=== PATIENT | female | born 1955 | race Caucasian/White ===

== ENCOUNTER → 2020-02-16 09:09 | Outpatient (BNVA) | payer MEDICAID, SELFPAY | PROVIDERS: Family Provider Family Medicine; PCP Family Medicine; Referring Provider Registered Nurse; Visit Provider Orthopaedic Surgery | DX: M25.511 Pain in right shoulder (principal) | CPT/HCPCS: 73030 ==

== ENCOUNTER 2020-03-07 13:28 | Outpatient (CLI) | payer MEDICAID, SELFPAY ==
--- NOTE | 2020-03-07 13:45 | MR_ITS ---
WS: [id number] MRI RIGHT SHOULDER HISTORY: M25.519 Pain in unspecified shoulder COMPARISON: Shoulder radiograph 02/16/2020 TECHNIQUE: Multiplanar sequences of the shoulder joint are submitted. Moderate AC joint arthritis. Hypertrophic bone formation soft tissue formation. There is fluid along the AC ligament. Osteophytes encroach inferiorly upon the supraspinatus muscle and tendon with displa cement. There is a small amount of fluid in the subacromial and subdeltoid bursa. 5 mm osteophyte fro m the distal undersurface of the acromion encroaching upon the supraspinatus tendon over the humeral head. No os acromion. Biceps tendon appears to be in good position. Full-thickness distal moderate-sized supraspinatus tendon tear at the insertion site extends over a w idth of 6 millimeters. There is additional mild tendinopathy in the distal tendon and narrowing of th e acromial humeral space. No additional rotator cuff tears are identified. No muscle atrophy or edema . Significant degenerative changes over the superior lateral humeral head. There is edema within the gr eater tuberosity and multiple small osseous densities and osteophytes and loss of cartilage. Some of these changes may be related to the recent trauma and represent a microfractures. Marrow edema in the humeral head may be secondary to a healing fracture. No labral abnormality. MR/MR shoulder RT wo con* [id number] IMPRESSION: 1. Moderate-sized insertion site tear supraspinatus tendon. 2. Advanced degenerative changes over the humeral head. Loss of cartilage with marrow edema and osteophytes. Suspect there may be superimposed acute edema fr om the recent trauma. 3. Moderate AC joint hypertrophy with encroachment upon the supraspinatus.
== END 2020-03-07 13:29 | disposition home or self-care (01) ==
LOC: RADSHAW 13:31
PROVIDERS: PCP Registered Nurse; Visit Provider Orthopaedic Surgery
DX: M25.511 Pain in right shoulder (principal)
CPT/HCPCS: 73221

== ENCOUNTER → 2020-04-01 11:19 | Outpatient (BNVA) | payer MEDICAID, SELFPAY | PROVIDERS: PCP Registered Nurse; Visit Provider Orthopaedic Surgery | DX: Z01.812 Encounter for preprocedural laboratory examination (principal); Z20.828 Contact with and (suspected) exposure to other viral communicable diseases | CPT/HCPCS: 87635 ==

== ENCOUNTER 2020-04-07 05:28 | Day surgery (SDC) | payer MEDICAID, SELFPAY ==
[2020-04-06 17:32] VITALS: BMI 21.6
[2020-04-07] VITALS (17 sets, daily range): BP systolic 120–168; BP diastolic 65–98; PULSE 64–76; RESP 17–24; TEMP 35.9–36.4; O2SAT 94–100
[2020-04-07] MEDS: sodium chloride 0.9% 1,000 ML 30 ML IV (06:11)
[2020-04-07] MEDS: midazolam 1 mg/mL INJ 5 ML 5 MG IVP (06:45)
[2020-04-07] MEDS: fentaNYL 50 mcg/mL INJ 2mL 100 MCG IVP (06:47)
--- NOTE | 2020-04-07 06:48 | ANES.PREANE2 ---
Pre-Anesthetic Assessment Pre-Anesthetic Assessment: Height/Weight: Height 1.65 m Weight 58.967 kg Temp Pulse Resp BP Pulse Ox 97.5 F L 65 18 168/96 100 04/07/20 05:57 04/07/20 05:57 04/07/20 05:57 04/07/20 05:57 04/07/20 05:57 Preop Diagnosis: Right rotator cuff tear, osteoarthritis acromioclavicular joint Proposed Procedure: Operation Date: 04/07/20 07:00 Proposed Procedures p Right Shoulder Arthroscopy 89365 88562 S46.0111 M19.011(Right) - Manuel Goff MD s Rotator Cuff Repair(Right) - MD destiny Johnson Distal Clavicle Resection(Right) - Manuel Goff MD Was Beta Grace taken within 24 hours: N/A Last intake: Intake Last Liquid Date 04/06/20 Last Liquid Time 23:55 Last Solid Date 04/06/20 Last Solid Time 23:55 Social: Social History: Tobacco and No alcohol Exam: Pre-Anes Outpt Exam: alert, oriented x 3, clear to auscultation bilaterally and regular rate & rhythm Airway: Submandibular: WNL Cervical ROM: WNL MP: 1 Dentition: False Pulmonary: Pulmonary: COPD and Cough CV/HEM: CV/HEM: None reported : : None reported Hepatic: Hepatic: None reported GI: GI: None reported Metabolic: Metabolic: Thyroid Musc/skel: Musc/skel: None reported Neuropsych: Neuropsych: Depression Anesthetic Plan: ASA status: 3 Anesthesia: General and Regional (specify below) Other: Pt consented for right interscalene nerve block Meds/Allergies Current Medications: Current Medications Generic Name Dose Route Start Last Admin Trade Name Freq PRN Reason Stop Dose Admin Sodium Chloride 1,000 mls @ 30 ml s/hr 04/07/20 05:45 04/07/20 06:11 Sodium Chloride 0.9% IV 04/08/20 05:44 30 mls/hr .Q24H MACARENA Administration PFSH Anesthesia PFSH: Social History (Updated 03/14/20 @ 10:30 by Gasper Sierra LPN) Smoking and tobacco status: current every day smoker cigarettes [ Other cigarette details: 5 per day ] Quit status (tobacco): considering quitting Alcohol intake: never Data Anesthesia Cardiac Studies: No Data to Display
--- NOTE | 2020-04-07 06:51 | ANES.PROC ---
Anesthesia Procedures Procedure/Date: 04/07/20 Nerve Block ^: Nerve Block 1: Main Anesthesia: general anesthesia Time Out Performed: Yes Consent: requested by attending/covering physician, risks and benefits reviewed and patient agrees to proceed Nerve block location: interscalene (Right) Anesthetic Used: ropivicaine 0.5% Amount of anesthesia used (mL): 30 Interscalene/Femoral BLK: 2 stimuplex 22 g needle used for position and inplane approach Injection: neg aspiration of heme Patient Tolerated Procedure: well and no complications Complications: none
--- NOTE | 2020-04-07 06:56 | W.PM.OPSUD ---
Surgery/Procedure H&P Update DATE OF PROCEDURE: April 07, 2020 DATE H&P PERFORMED: 03/14/20 PREOP DIAGNOSIS: Right rotator cuff tear, osteoarthritis acromioclavicular joint PLANNED PROCEDURE: Operation Date: 04/07/20 07:00 Proposed Procedures p Right Shoulder Arthroscopy 87219 06328 S46.0111 M19.011(Right) - Manuel Goff MD s Rotator Cuff Repair(Right) - MD destiny Johnson Distal Clavicle Resection(Right) - Manuel Goff MD
--- NOTE | 2020-04-07 08:47 | P.OP_ITS ---
Operative Report Date of procedure: April 07, 2020 Pre-op Diagnosis: Right rotator cuff tear, osteoarthritis acromioclavicular joint, impingemen Post-op diagnosis: same Post-op Findings: Same Procedure Done: Arthroscopic right rotator cuff repair, subacromial decompression, distal clavicle excision Implants: Simms [employer] Nephew Helicoil 5.5 mm suture anchor Surgeon: Manuel Goff Anesthesia: General and Nerve Block (Interscalene block) Estimated blood loss (mL): 10 Complications: None Findings: The patient had a chronic tear of the right rotator cuff in the leading edge of the supraspinatus approximately 1 cm from anterior to posterior with a centimeter of tendinous retraction. She had a gentle anterior curvature to her acromion and enlargement degenerative changes of the acromioclavicular joint. Her biceps tendon was absent Condition: stable Disposition: PACU Procedure: The patient was taken to the operating room after interscalene block was provided by anesthesia. She is prepped and draped in the lateral position with the right arm in 10 pounds of traction. She was given 2 g of Ancef. The shoulder was entered through a posterior portal 2 cm inferior and medial to the posterior corner of the acromion. Diagnostic portion of the glenohumeral arthroscopy was performed. No significant chondromalacia of the humeral head or glenoid were identified. The biceps tendon was absent. The small full- thickness tear identified. The scope was then moved to the subacromial space and lateral and anterior portal were opened up with a scalpel. Initial attention was paid to the undersurface of the acromion. The Simms [employer] Nephew Werewolf probe was used to remove soft tissues from the leading edge of acromion revealing a anterior curvature and small spurs. 5 5 acromionizer was introduced and approximately 4 mm of anterior and inferior acromion removed. The Werewolf probe was then used to visualize the distal clavicle. The acromionizer was introduced in the anterior portal and approximately 8 mm of the distal clavicle fix excised. Attention was then focused on the rotator cuff. The tear seem to be a small U- shaped tear of reasonable tendon and bone quality. A 4.5 mm incisor shaver was used to debride the footprint of the supraspinatus on the greater tuberosity. Through a lateral stab wound a 5.5 mm helical anchor was placed. A first pass suture passer was used to shuttle 1 limb of ultra tape through the posterior lateral rotator cuff and a second limb through the anterior lateral rotator cuff. The ultra braid suture was passed in a central more medial position approximately 8 mm from the tendon edge. Initially the ultra tape was secured drawing the rotator cuff to bone followed by the Ultrabraid further reinforcing repair. The repair was probed and found to be stable. Arthroscopy equipment was removed. Portals were closed with 3-0 Prolene. Sterile dressings were applied. The patient was placed in a sling, extubated, and taken recovery room in stable condition.
[2020-04-07] MEDS: ipratropium-albuterol 3 mL Neb INHALATION (09:23)
--- NOTE | 2020-04-07 09:31 | P.PCN_ITS ---
PACU note PACU note: VSS, Good respiratory effort, report to CORPORATE COMPLIANCE DIRECTOR Post-Anesthesia Exam: awake
--- NOTE | 2020-04-07 09:31 | PM.PACU ---
PACU note PACU note: VSS, Good respiratory effort, report to CASHIER RECEPTIONIST Post-Anesthesia Exam: awake
--- NOTE | 2020-04-07 10:03 | SUR.PHASEI ---
0853 PT TO PACU AWAKE ALERT TALKAITVE COUGHING NON PRODUCTIVE ON 8LMASK PT HOB UP TO 40 DEGREES, PT COLD AT 97 WARM BLANKETS X 4 TO PT. BILAT SCDS ON 0945 PT VERY ALERT TALKATIVE TAKING ICE CHIP PT STILL HAS EXP RHONCHI TO ALL LOBES BUT HAD GOOD AIR MOVEMENT NOTED PT UNABLE TO COUGH UP SECRETION PT TO OPS ON 3LCN DR GALLO AT BEDSIDE PT ENCOURAGED TO DRINK LOTS OF FLUIDS AND WILL BE WATCHED IN OPS ON NC FOR NOW PT COMPLAINS OF PAIN TO RT SHOULDER FACE SCALE 2 PT OK WITH TAKING PO PAIN MED IN OPS.
--- NOTE | 2020-04-07 11:21 | SUR.PHASEII ---
patient states that she lives at home by herself. she says she has a friend named isra that will be checking on her and helping her at home today. pt discharged to ready transport for ride home awake and alert on room air.
--- NOTE | 2020-04-07 16:25 | ANE.PACU2 ---
Inpatient post-anesthesia follow up: Airway intact: Yes Vital signs: Temperature 96.7 F Pulse Rate 66 Respiratory Rate 20 Blood Pressure 142/89 Pulse Oximetry 94 Oxygen Delivery Me thod Room Air Oxygen Flow Rate 1 Fraction of Inspir ed Oxygen Hydration adequate: Yes Nausea and vomiting: No Pain level: 2 Mental status: Baseline
== END 2020-04-07 11:21 | disposition home or self-care (01) ==
PROVIDERS: PCP Registered Nurse; Visit Provider Orthopaedic Surgery
PROC: (CPT 29805; principal; 2020-04-07 07:00)
PROC: (CPT 29824; 2020-04-07 07:00)
PROC: (CPT 23120; 2020-04-07 07:00)
DX: M75.101 Unspecified rotator cuff tear or rupture of right shoulder, not specified as traumatic (principal); M19.011 Primary osteoarthritis, right shoulder; M25.811 Other specified joint disorders, right shoulder; J44.9 Chronic obstructive pulmonary disease, unspecified; F32.9 Major depressive disorder, single episode, unspecified; F17.210 Nicotine dependence, cigarettes, uncomplicated
CPT/HCPCS: 29824; 29826; 29827; 12345; 96374; 96375; C1713; J0690; J1100; J2250; J2370; J2405; J2704; J2795; J3010; J3490; J7030; J7611

== ENCOUNTER 2020-05-31 12:32 | Outpatient (CLI) | payer MEDICAID, SELFPAY ==
--- NOTE | 2020-05-31 13:45 | MR_ITS ---
WS: [id number] MRI CERVICAL SPINE NONCONTRAST TECHNIQUE: Sagittal T1, T2 and STIR imaging. Axial T2, gradient, and fiesta imaging. CLINICAL INFORMATION: M54.2 - Cervicalgia COMPARISON: None. FINDINGS: Straightening of the normal cervical lordosis. Slight anterolisthesis C4 on C5. No High-grade central canal stenosis. Cord signal is normal. C2-C3: Normal. C3-C4: Minimal disc bulging. Mild facet arthropathy. Mild left and no significant right foraminal jeromy rowing. Spinal canal is patent. C4-C5: Slight anterolisthesis C4 on C5. Disc osteophyte complex with endplate ridging. Mild left grea ter than right bony foraminal narrowing. Mild facet arthropathy. Mild central canal stenosis. C5-C6: Disc osteophyte complex with endplate ridging. Mild to moderate left greater than right bony f oraminal narrowing. C6-C7: Slight anterolisthesis. Mild left and no significant right foraminal narrowing. Spinal canal i s patent. Mild facet arthropathy. C7-T1: No significant disc bulging. Spinal canal and foramen are patent. Visualized brain stem structures: Normal. Prevertebral soft tissues: Normal. MR/MR cervical spin wo con* [id number] IMPRESSION: 1. Straightening of the normal cervical lordosis. Slight anterolisthesis C4 on C5 and C6 on C7. 2. Disc osteophyte complex C4-C5 with mild central canal stenosis. 3. Mild to moderate bony foraminal narrowing worse at left C4-C5 and left C5-C 6
== END 2020-05-31 12:33 | disposition home or self-care (01) ==
LOC: RADSHAW 12:33
PROVIDERS: PCP Registered Nurse; Visit Provider Orthopaedic Surgery
DX: M25.78 Osteophyte, vertebrae (principal); M48.02 Spinal stenosis, cervical region
CPT/HCPCS: 72141

== ENCOUNTER → 2020-06-17 11:13 | Outpatient (BNVA) | payer MEDICAID, SELFPAY | PROVIDERS: PCP Registered Nurse; Visit Provider Orthopaedic Surgery | DX: M54.2 Cervicalgia (principal) | CPT/HCPCS: 72050 ==

== ENCOUNTER → 2020-07-20 09:27 | Outpatient (BNVA) | payer MEDICAID, SELFPAY | PROVIDERS: PCP Registered Nurse; Visit Provider Orthopaedic Surgery | DX: S43.401A Unspecified sprain of right shoulder joint, initial encounter (principal); X58.XXXA Exposure to other specified factors, initial encounter | CPT/HCPCS: 73030 ==

== ENCOUNTER → 2020-08-04 09:55 | Outpatient (BNVA) | payer MEDICAID, SELFPAY | PROVIDERS: PCP Registered Nurse; Visit Provider Psychiatry & Neurology Neurology | DX: M47.22 Other spondylosis with radiculopathy, cervical region (principal); F17.210 Nicotine dependence, cigarettes, uncomplicated | CPT/HCPCS: 95886; 95908 ==

== ENCOUNTER → 2020-10-05 10:21 | Outpatient (BNVA) | payer MEDICAID, SELFPAY | PROVIDERS: PCP Registered Nurse; Visit Provider Orthopaedic Surgery | DX: Z01.818 Encounter for other preprocedural examination (principal); Z11.52 Encounter for screening for COVID-19; Z20.822 Contact with and (suspected) exposure to COVID-19 | CPT/HCPCS: 87635 ==

== ENCOUNTER 2020-10-12 05:55 | Day surgery (SDC) | payer MEDICAID, SELFPAY ==
[2020-10-05 12:08] VITALS: BMI 21.1
--- NOTE | 2020-10-05 12:20 | SUR.PREOP ---
Addendum entered by Sharon Hartman 10/05/20 12:23: physical therapy here and pt brought back to pre-op room one and fitted for pilot station J brace Original Note: per anesthesia protocol pt needs cbc but pt refuses due to worship practices and doesn't want to wait to see physical therapy to be fitted for a brace
--- NOTE | 2020-10-05 12:26 | ANES.PREANE2 ---
Pre-Anesthetic Assessment Pre-Anesthetic Assessment: Height/Weight: Height 1.65 m Weight 57.606 kg Preop Diagnosis: cervicalspondylosis with radiculopathy Proposed Procedure: Operation Date: 10/12/20 09:00 Proposed Procedures p Anterior Cervical Discectomy & Fusion 88326, 62709, 73851, 83648,42778, 40729 m47.22(Not Applicable) - Fabio Aguero, DO Was Beta Grace taken within 24 hours: N/A Was Clonidine taken within 24 hours: N/A Social: Social History: Tobacco and No alcohol Exam: Pre-Anes Outpt Exam: alert, oriented x 3 and regular rate & rhythm Additional Exam Findings (including area of procedure): rhonchi Airway: Submandibular: WNL Cervical ROM: WNL (good ROM with minimal neck pain) MP: 2 Dentition: False Pulmonary: Pulmonary: COPD Metabolic: Metabolic: Thyroid Neuropsych: Neuropsych: Depression Anesthetic Plan: ASA status: 3 Anesthesia: General Risk of > 500 ml blood loss (7ml/kg in children): No PFSH Anesthesia PFSH: Social History Smoking and tobacco status: current every day smoker cigarettes [ Other cigarette details: 5 per day ] Quit status (tobacco): considering quitting Alcohol intake: never Data Anesthesia Cardiac Studies: No Data to Display
[2020-10-12] VITALS (10 sets, daily range): BP systolic 117–141; BP diastolic 73–96; PULSE 56–65; RESP 16–21; TEMP 36.3–36.6; O2SAT 94–100
--- NOTE | 2020-10-12 | SCC_ITS ---
Post-op Findings: 1. Anterior diskectomy C4/5 2. Anterior discectomy C5/6 3. Insertion of cage C4/5 4. Insertion of Cage C5/6 5. Instrumentation with anterior plate from C4-C6 6. Use of allograft 22.1 seconds of fluoroscopic guidance, for a cumulative dose of 0.95 mGy, was provided to Dr. Aguero by the radiology department. C-arm images of the cervical spine were saved for the patient's permanent record. ALOK
--- NOTE | 2020-10-12 | XR_ITS ---
WS: [id number] Cervical spine, C-arm fluoroscopy views, 10/12/2020 Clinical Data: acdf Comparison: Cervical spine, 06/17/2020. Findings: An anterior cervical disc fusion of C4-C6 is seen. There is an artificial disc at C4-C5 and C5-C6. XR/XR cervical spine 3V* [id number] Impression: Anterior cervical disc fusion of C4-C6.
[2020-10-12] MEDS: sodium chloride 0.9% 1,000 ML 30 ML IV (06:23)
--- NOTE | 2020-10-12 06:34 | P.ANESUD_ITS ---
Pre-Anesthetic Update Pre-Anesthetic Assessment: Date of Surgery/Procedure: 10/12/20 Preop Maria Teresa gnosis: cervicalspondylosis with radiculopathy Proposed Procedure: Operation Date: 10/12/20 07:00 Proposed Procedures p Anterior Cervical Discectomy & Fusion 11177, 09398, 17240, 27282,04050, 28656 m47.22(Not Applicable) - Fabio Aguero, DO Any changes to Pre-Anesthetic Assessment?: No Last Intake: Intake Last Liquid Date 10/11/20 Last Liquid Time 21:00 Last Solid Date 10/11/20 Last Solid Time 21:00 Vitals: Temperature 98 F 10/12/20 06:14 Temperature Source Temporal Artery S can 10/12/20 06:14 Pulse Rate 65 10/12/20 06:14 Respiratory Rate 18 10/12/20 06:14 Blood Pressure 138/96 10/12/20 06:14 Blood Pressure Deena n 110 10/12/20 06:14 Pulse Oximetry 100 10/12/20 06:14 Oxygen Delivery Me thod 10/12/20 06:14 Exam: Pre-Anes Outpt Exam: alert, oriented x 3, clear to auscultation b ilaterally and regular rate & rhythm Additional Exam Findings (including area of procedure): L wheze Other Pertinent Information: Other Pertinent Information: Took her inhaler this morning Cardiac Studies: No Data to Display
--- NOTE | 2020-10-12 06:55 | W.PM.OPSUD ---
Surgery/Procedure H&P Update DATE OF PROCEDURE: October 12, 2020 DATE H&P PERFORMED: 10/12/20 PREOP DIAGNOSIS: cervicalspondylosis with radiculopathy PLANNED PROCEDURE: Operation Date: 10/12/20 07:00 Proposed Procedures p Anterior Cervical Discectomy & Fusion 15134, 61981, 60788, 87196,94771, 07314 m47.22(Not Applicable) - Fabio Aguero, DO
--- NOTE | 2020-10-12 06:56 | PM.HP ---
Providers/Chief Complaint Primary Care Provider: YOLIS Weinberg Chief Complaint: acdf 10376, 48060, 57199, [id number], 87735 History of Present Illness Lucy Dotson is a 65 year old female Patient has chronic C5-C6 radiculopathy on her EMG. MRI shows significant stenosis at C4-5 C5-6 which correlates with her findings. And her physical exam correlates with these findings as well. Patient has failed conservative therapy and at this point would like proceed with a C4-5 C5-6 ACDF. Review of Systems Narrative: General ROS: negative for weight changes, fever ENT ROS: negative for nasal congestion, drainage or bleeding, sore throat, dysphagia or ear pain Eyes: PERRL Hematological and Lymphatic ROS: negative for swollen glands or abnormal bleeding Endocrine ROS: negative for polyuria/polydpsia or new changes in weight Respiratory ROS: negative for cough, shortness of breath, or wheezing Cardiovascular ROS: negative for chest pain or dyspnea on exertion Gastrointestinal ROS: negative for reflux, abdominal pain, change in bowel habits, or black or bloody stools Musculoskeletal ROS: negative for back pain, neck pain, or joint pain or swelling except for current problem Neurological ROS: negative for TIA or stoke symptoms Skin: no rashes Medications/Allergies Home Medications Medication Instructions Recorded Confirmed Last Taken Type fluoxetine 40 mg capsule 40 mg PO DAILY 02/16/20 10/12/20 10/11/20 History levothyroxine 88 mcg tablet 88 mcg PO DAILY 02/16/20 10/12/20 10/11/20 History albuterol sulfate [ProAir HFA] 2 puff INHALATION 6XD PRN 04/06/20 10/12/20 10/12/20 History pregabalin 100 mg capsule 100 mg PO BID 08/04/20 10/12/20 10/11/20 History ibuprofen 400 mg PO TID PRN 10/05/20 10/12/20 10/11/20 History Allergies Allergy/AdvReac Type Severity Reaction Status Date / Time No Known Allergies Allergy Verified 10/05/20 12:03 PFSH Acute PFSH: Social History Smoking and tobacco status: current every day smoker cigarettes [ Other cigarette details: 5 per day ] Quit status (tobacco): considering quitting Alcohol intake: never Vitals/I&O/Wt Last Vital Signs Temp 98 F 10/12/20 06:14 Pulse 65 10/12/20 06:14 Resp 18 10/12/20 06:14 BP 138/96 10/12/20 06:14 Pulse Ox 100 10/12/20 06:14 Physical Exam Narrative: EXAM NARRATIVE: CONSTITUTIONAL: The patient is a normal appearing [] in no apparent distress. GENERAL: Patient in no acute distress. CARDIAC: Regular rate and rhythm. CHEST: Normal inspiratory effort, normal respiratory rate. ABDOMEN: Soft and nontender. SKIN: Clear, warm and intact. NEURO?PSYCH: The patient is alert and oriented to person, place and time. Sensorv /SILT Motor StrengthShoulder abduction C5 5/5Wrist extension C6 5/5Elbow extension C7 5/5Hand [employer] Plant [employer] Operator C8 5/5Finger abduction T15/5 Radial/ Ulnar/ Median n intact LowerSensory (SILT)Motor StrengthHin flexion L2/3Ant/inner thigh 5/5Hip adduction L2/3 5/5Knee extension L4 Lat thigh, 5/5Toe dorsiflexion L5 5/5Ankle dorsiflexion L5/ E83Ppbnqyr flexion S1 5/5 DTRBleeps 2+Triceps 2+Brachioradialis 2+Patellar 2+Achilles 2+ MUSCULOSKELETAL: [] UPPEREXTREMITIES: The patient had full active ROM in fingers, wrist, elbow, and shoulder. The patient demonstrated ability to fully flex/extend/abduct/adduct fingers, make ok sign, cross 2nd/3rd digits, extend 1st digit fully.. Radial pulse 2+, CR<2 seconds. LOWER EXTREMITIES: Pt has full, active ROM of toes, ankle, knee, and hip. Dorsalis pedis/posterior tibialis pulses 2+, CR<2 seconds. SPINE: Skin warm, dry, intact. A&P Assessment and plan (1) Cervical spondylosis with radiculopathy: C4/5 and C5/6 ACDF Status: Acute Attestations Medical Necessity Statement*: failed conservative tx Coding Level of Care Code Acute Chromosomal Disorders Counselor for g Fwd Diagnoses Cervical spondylosis with radiculopathy M47.22
[2020-10-12] MEDS: fentaNYL 50 mcg/mL INJ 2mL IVP (09:15)
--- NOTE | 2020-10-12 09:21 | PM.OP ---
Operative Report Date of procedure: October 12, 2020 Pre-op Diagnosis: cervicalspondylosis with radiculopathy Post-op diagnosis: same Post-op Findings: 1. Anterior diskectomy C4/5 2. Anterior discectomy C5/6 3. Insertion of cage C4/5 4. Insertion of Cage C5/6 5. Instrumentation with anterior plate from C4-C6 6. Use of allograft Surgeon: Fabio Aguero Anesthesia: General Estimated blood loss (mL): 5 Condition: stable Disposition: PACU Procedure: 1. Anterior diskectomy C4/5 2. Anterior discectomy C5/6 3. Insertion of cage C4/5 4. Insertion of Cage C5/6 5. Instrumentation with anterior plate from C4-C6 6. Use of allograft The patient was taken to the operating room, where he underwent general endotracheal anesthesia without complications. He was then positioned supine on the operating table, and all areas of impingement were well padded. The arms were carefully padded and tucked at his sides. A roll was placed between the shoulder blades.. An x-ray was done to determine the appropriate level for the skin incision. The entire neck was then sterilely prepped and draped in the usual fashion. Neuromonitoring was attached prior to prepping. A transverse skin incision was made and carried down to the platysma muscle. This was then split in line with its fibers. Blunt dissection was carried down medial to the carotid sheath and lateral to the trachea and esophagus until the anterior cervical spine was visualized. A needle was placed into a disc and an x-ray was done to determine its location. The longus colli muscles were then elevated bilaterally with the electrocautery unit. Self-retaining retractors were placed deep to the longus colli muscle. Attention was brought to the C4/5 level that was confirmed on x-ray. A caspar pin was placed into the C4 vertebrae and the C5 vertebrae. The disk space was then distracted. The microscope was then brought in. A radical anterior discectomies were performed at C4/5. This included complete removal of the anterior annulus, nucleus, and posterior annulus. The posterior longitudinal ligament was removed as were the posterior osteophytes. Foraminotomies were then accomplished bilaterally. This was done using a high speed courtney, kerrison rongeurs and curretes Once all of this was accomplished, the curved currette was used to check for any residual compression. The central canal was wide open as were the foramen. A high-speed bur was used to remove the cartilaginous endplates above and below the interspace. Bleeding cancellous bone was exposed. The disc space were measured and appropriate size cage were placed sterilely onto the field. Allograft graft was packed into the cages. The cage was then placed and there was good juxtaposition against the bleeding decorticated surfaces and good distraction of each interspace. Attention was brought to the next interspace. The [place] pins were removed. Bone wax was used to prevent any bleeding from occurring at the pin sites. Attention was brought to the C5/6 level that was confirmed on x-ray. A caspar pin was placed into the C5 vertebrae and the C6 vertebrae. The disk space was then distracted. The microscope was then brought in. A radical anterior discectomies were performed at C5/6. This included complete removal of the anterior annulus, nucleus, and posterior annulus. The posterior longitudinal ligament was removed as were the posterior osteophytes. Foraminotomies were then accomplished bilaterally. This was done using a high speed courtney, kerrison rongeurs and curretes Once all of this was accomplished, the curved currette was used to check for any residual compression. The central canal was wide open as were the foramen. A high-speed bur was used to remove the cartilaginous endplates above and below the interspace. Bleeding cancellous bone was exposed. The disc space were measured and appropriate size cage were placed sterilely onto the field. Allograft graft was packed into the cages. The cage was then placed and there was good juxtaposition against the bleeding decorticated surfaces and good distraction of each interspace. Attention was brought to the next interspace. The [place] pins were removed. Bone wax was used to prevent any bleeding from occurring at the pin sites. The appropriate size anterior cervical locking plate was chosen and bent into gentle lordosis. Two screws were then placed into each of the vertebral bodies at C4, C5 and C6. There was excellent purchase. A final x-ray was done confirming good position of the hardware and Cages. The locking screws were then applied, also with excellent purchase. Following a final copious irrigation, there was good hemostasis and no dural leaks. The carotid pulse was strong. The wounds were then closed in layers using 2-0 Vicryl suture for the platysma muscle, 2-0 Vicryl suture for the subcutaneous tissue, and 4-0 monocryl suture in a subcuticular skin closure. Glue was placed followed by application of a sterile dressing. The drain was hooked to bulb suction. A soft collar was applied. The patient was then carefully returned to the supine position on his hospital bed where he was reversed and extubated and taken to the recovery room having tolerated the procedure well.
--- NOTE | 2020-10-12 09:39 | SUR.PHASEI ---
PT AWAKE ALERT TALKATIVE WITH OPS NURSE, PT TAKING SIPS OF COKE IN OPS. MOVES ALL EXTREMITIES TO COMMAND VSS.PT ON 3LNC.
[2020-10-12] MEDS: HYDROcodone-acetaminophen 5-325 mg Tablet 1 TAB PO ×2 (09:50→10:47)
--- NOTE | 2020-10-12 15:43 | ANE.PACU2 ---
Inpatient post-anesthesia follow up: Airway intact: Yes Vital signs: Temperature 97.9 F Pulse Rate 58 Respiratory Rate 16 Blood Pressure 141/88 Pulse Oximetry 99 Oxygen Delivery Me thod Room Air Oxygen Flow Rate 2.0 Fraction of Inspir ed Oxygen Hydration adequate: Yes Nausea and vomiting: No Pain level: 3 Mental status: Baseline
== END 2020-10-12 11:05 | disposition home or self-care (01) ==
PROVIDERS: PCP Registered Nurse; Visit Provider Orthopaedic Surgery
PROC: 0RB30ZZ Excision of Cervical Vertebral Disc, Open Approach (ICD-10-PCS; CPT 22551; principal; 2020-10-12 07:00)
DX: M47.22 Other spondylosis with radiculopathy, cervical region (principal); F17.210 Nicotine dependence, cigarettes, uncomplicated; J44.9 Chronic obstructive pulmonary disease, unspecified; F32.9 Major depressive disorder, single episode, unspecified
CPT/HCPCS: 20930; 22551; 22552; 22845; 22853 ×2; 72040; 76000; 96365; C1713; C9359; J0330; J0690; J1100; J2370; J2405; J2704; J3010; J7030

== ENCOUNTER → 2020-12-15 13:36 | Outpatient (BNVA) | payer MEDICAID, SELFPAY | PROVIDERS: PCP Registered Nurse; Visit Provider Orthopaedic Surgery | DX: Z48.89 Encounter for other specified surgical aftercare (principal); M54.2 Cervicalgia | CPT/HCPCS: 72040 ==

== ENCOUNTER → 2021-01-12 08:47 | Outpatient (BNVA) | payer MEDICAID, SELFPAY | PROVIDERS: PCP Registered Nurse; Visit Provider Orthopaedic Surgery | DX: Z48.89 Encounter for other specified surgical aftercare (principal); M47.22 Other spondylosis with radiculopathy, cervical region | CPT/HCPCS: 72040 ==

== ENCOUNTER → 2021-03-02 11:16 | Outpatient (BNVA) | payer MEDICAID, SELFPAY | PROVIDERS: PCP Family Medicine; Visit Provider Orthopaedic Surgery | DX: Z48.89 Encounter for other specified surgical aftercare (principal); M54.2 Cervicalgia | CPT/HCPCS: 72040 ==

== ENCOUNTER 2021-05-09 12:07 | Inpatient (IN) | payer MEDICAID, SELFPAY ==
[2021-05-09 12:08] VITALS: BP 127/56; PULSE 51; RESP 22; TEMP 36.2; O2SAT 97; BMI 18.3
--- NOTE | 2021-05-09 12:11 | XACV_ITS ---
Ht: 165 cm Wt: 54 kg BSA: 1.58 m2 Gender: Female : 1955 Exam Priority: Routine Procedure(s): Procedure Description: Diagnostic procedure Anna ROBERTO; Diagnostic Cath Status: Emergency Diagnostic Findings * Left Main has no disease. * Distal Left Anterior Descending: obstructive 70% stenosis, KAYLYNN: 3 flow. * Mid Right Coronary Artery: moderate 50% stenosis, KAYLYNN: 3 flow. * Distal Right Coronary Artery: total occlusion, KAYLYNN: 0 flow. * Mid Circumflex to Distal Circumflex: obstructive 70% stenosis, KAYLYNN: 3 flow. * Coronary angiography shows right dominance. PCI Status: Emergency PCI Indication: STEMI - Immediate PCI for STEMI Interventional Findings * Mid Right Coronary Artery: 50% stenosis treated with a AB MINI TREK 2.00X15 RX BALLOON. 0% residual stenosis, KAYLYNN: 3 flow. * Distal Right Coronary Artery: 100% stenosis treated with a AB MINI TREK 2.00X15 RX BALLOON, MDT R NYDIA 3.0X34 FRANKIE, and MDT CLOVIS EUPHORA RX [id number] BALLOON. 0% residual stenosis, KAYLYNN: 3 flow. Conclusions 1. There is total occlusion coronary artery disease with three vessel disease. 2. Mid Right Coronary Artery was treated with a Balloon. 3. Distal Right Coronary Artery was treated with a Balloon, Drug Eluting Stent, and Balloon. Recommendations * 1-Return to inpatient for close monitoring and routine cath care 2-Risk factor modification for secondary prevention 3-Statin with LDL goal <70mg/dl, aspirin 81 mg life long 4-Patient was preloaded with 60mg of Effient, continue Effient 10mg p.o. daily for at least one year. We will assess at the end of one year again to continue it further or not 5-Continue optimal medical management, due to patient was uncooperative therefore we were not able to assess circumflex and LAD lesion with FFR which appeared to be significant, since we fix the culprit RCA and because of the fact patient keep on moving we decided to bring patient back after 2 to 3 weeks for stage FFR guided PCI of LAD and circumflex. 6-Follow up with Dr. Castillo for 2 weeks. Interventional RX Recommendation: PCI w/o planned CABG Diagnostic RX Recommendation: PCI w/o planned CABG Pressures Phase:Rest AO : 149 / 94 ( 118 ) @ 10:28:00 AM 113 / 82 ( 90 ) @ 10:51:00 AM Clinical Evaluation EBL: 5mL-10mL Procedural Details Procedure Consent Obtained. Procedure started. Pre-Procedure Time Out. Identified patient by full name and date of as verbalized by the patient/guarantor. Does the consent match the physician's order: N/A Emergent. Accurate & Complete Informed Consent: N/A Emergent. Inpatient/Outpatient History & Physical on Chart: N/A Emergent. If H&P is completed, is and addenduem needed: N/A Emergent; If yes, is the addendum complete: N/A Emergent. Visualize and Verify Site with Patient/Guarantor: N/A. Relevant Radiology Images available: N/A Emergent. Pre-op teaching completed and patient verbalized understanding. The risks, benefits, and alternatives of sedation and/or procedure were discussed by physician. The patient agrees to continue. Correct patient, site and procedure confirmed by cath team. [facility] Clinical Fraility Score: 3: Managing Well. Sealing Machine Operator Indications: ACS <= 24 hours. Chest Pain Symptom Assessment: Typical Angina Symptoms. Cardiovascular Instability: Yes, if yes, Persistant Ischemic Symptoms. PERRLA. Strong, equal hand integration manager bilaterally. Lungs clear x 5 lobes. IV Site on Arrival: 20 gauge in the left anticubital. IV Fluids: 0.9% NaCl at KVO. 600 mL infused prior to laboratory administrative director. Oxygen started at 4liters/min via nasal canula. right radial was prepped with chloroprep then draped in the usual sterile fashion. right groin was prepped with chloroprep then draped in the usual sterile fashion. Baseline sample Acquired. HR: 52 BPM. Equipment: 6F - Radial. Physician scrubbed in. Immediate Pre-Procedure Time Out. Correct Patient: Yes; Correct Procedure: Yes; Correct Site: Yes; Correct Patient Position: Yes; Correct Supplies: Yes; Dried Flammable Prep: Yes; Blood Products Available: N/A;. Lidocaine 1% infiltrated to the right radial. AP pads applied to pt. Arterial access obtained. 6 sudanese JR 4 SH guide catheter was inserted over the wire. Hand injection performed through sheath. Guide catheter out. Unable to advance Guide catheter due to difficult anatomy. Slight perforation noted. Pressure dressing applied to right forearm. Physician moving to femoral approach. Lidocaine 1% infiltrated to the right groin. Arterial access obtained with micropuncture set. 6 sudanese JR 4 SH guide catheter was inserted over the wire. Runthrough guidewire was advanced through the guide catheter to lesion in the mid RCA. Inflation number : 1 A AB MINI TREK 2.00X15 RX BALLOON was prepped and advanced across the Mid RCA , then inflated to 15 JESS for 0:17 seconds. Inflation number: 1 The AB MINI TREK 2.00X15 RX BALLOON was reinflated across the Dist RCA, to 15 JESS for 0:09 seconds. Balloon out. Inflation Number : 2 A MDT R NYDIA 3.0X34 FRANKIE -Lot Number# [id number] date 06/18/2022 was prepped and advanced across the Dist RCA. The stent was deployed at 14 JESS for 0:32 seconds. Stent balloon out over wire. Results checked. Wire and balloon out to reshape the wire. Runthrough guidewire was advanced through the guide catheter to lesion in the distal RCA. [place] guidewire was advanced through the guide catheter to lesion in the distal RCA. Inventory is [employer] [place] XT .014 190cm Str. Guidewire. Inflation number : 3 A MDT NC EUPHORA RX [id number] BALLOON was prepped and advanced across the Dist RCA , then inflated to 18 JESS for 0:18 seconds. Inflation number: 4 The MDT NC EUPHORA RX [id number] BALLOON was reinflated across the Dist RCA, to 18 JESS for 0:16 seconds. Runthrough wire out. Inflation number: 5 The MDT NC EUPHORA RX [id number] BALLOON was reinflated across the Dist RCA, to 16 JESS for 0:13 seconds. Balloon out. Wire out. Results checked. ACT drawn. Results 225 seconds. Therapeutic limits - pre-heparin administration 90-150 seconds and monitoring heparin during a vascular procedure >250 seconds. Guide catheter out. A 5 sudanese JL4 catheter in over wire. Multiple views taken of left coronary artery. Catheter out. A Right femoral angiogram was performed to determine safe placement of closure device. Right arm angiogram performed. A [facility]) was successful obtaining hemostatsis at the Right Femoral artery insertion site. Lidocaine 1% infiltrated to the right groin. A TR Band was successful obtaining hemostatsis at the Right Radial artery insertion site. TR band placed. Hemostasis obtained. Perclose placed without complications. No signs or symptoms of hematoma noted. Sterile dressing applied per usual sterile fashion. Post Procedure: Pulses reassessed and unchanged. PERRLA. Strong, equal hand integration manager bilaterally. No VTE prophylaxis required. Medication's Wasted: Lidocaine 1% = 15 mL. Medication's Wasted: Nitro = 50 mg. Medication's Wasted: Heparin = 2000 units. Total IV fluids: [address] Castillo expressing hematoma from right radial access. Contrast type used: Omnipaque 300 mgI/mL, 500 mL bottle. Post-op diagnosis: stemi. PCI Indication: STEMI. Complications: none. TR band applied to right forearm. Estimated blood loss: 5mL-10mL. Responsiveness - Normal response to verbal stimuli; alert and oriented, PERRLA. Airway - Unaffected, no intervention required; spontaneous ventilation. Circulation: W/N/L, pulses unchanged. Nausea/Vomiting: No. Procedure completed. Patient transferred by bed to ICU. Access Site Site: Right Radial artery Sheath Size: 6 Fr Hemostasis Method: TR Band Hemostasis Success: Successful Site: Right Femoral artery Sheath Size: 6 Fr Hemostasis Method: Perclose ([place]) Hemostasis Success: Successful Procedure Medications Start: 12:17 PM Stop: 12:17 PM Medication: Aspirin Amount: 325 mg Route: P.O. Start: 12:17 PM Stop: 12:17 PM Medication: Heparin Amount: 4000 units Route: I.V. Start: 12:20 PM Stop: 12:20 PM Medication: Effient Amount: 60 mg Route: P.O. Start: 12:18 PM Stop: 12:18 PM Medication: Versed Amount: 1 mg Route: I.V. Start: 12:18 PM Stop: 12:18 PM Medication: Fentanyl Amount: 50 mcg Route: I.V. Start: 12:21 PM Stop: 12:21 PM Medication: Versed Amount: 1 mg Route: I.V. Start: 12:25 PM Stop: 12:25 PM Medication: Fentanyl Amount: 50 mcg Route: I.V. Start: 12:29 PM Stop: 12:29 PM Medication: Heparin Amount: 3000 units Route: I.V. Start: 12:33 PM Stop: 12:33 PM Medication: Aggrastat 12.5 mg/250 mL Amount: 28 ml Route: I.V. bolus Start: 12:52 PM Stop: 12:52 PM Medication: Heparin Amount: 2000 units Route: I.V. Start: 1:00 PM Stop: 1:00 PM Medication: Fentanyl Amount: 25 mcg Route: I.V. Start: 1:03 PM Stop: 1:03 PM Medication: Fentanyl Amount: 25 mcg Route: I.V. I, the attending physician, have reviewed and verified all procedure medications. Yes, all medications given per verbal order History/Risk Factors Hypertension: No Dyslipidemia: No Peripheral Arterial Disease (PAD): No Myocardial Infarction (IA): No Obesity: No Renal Disease: No Tobacco Use: Current/Recent(w/in 1 year) Prior Interventions PCI: No CABG: No Valve Surgery: No Report Signatures Finalized by Scott Castillo MD on 05/23/2021 07:24 PM
--- NOTE | 2021-05-09 12:13 | PM.HP ---
Providers/Chief Complaint Primary Care Provider: Carlita Avendaño DO Chief Complaint: STEMI History of Present Illness Lucy Dotson is a 65 year old female past medical history significant for tobacco abuse presented with chest pain off and on basis for the last couple of hours. When it become more consistent she called 911. EKG was performed in the field which showed ST elevation in the inferior leads with reciprocal changes. We saw the patient in the ER. We agree with the presentation that this is ST elevation of the inferior wall will take the patient to the Street Car Inspector now further plan will be advised as per progress the patient. Patient denies any prior history of stroke coronary artery disease liver or renal disease Review of Systems Const: Reports: diaphoresis; Denies: fever(s) ENMT: Denies: throat pain, ear or mastoid pain, nasal discharge or nasal congestion Card: Denies: palpitations or syncope Resp: Reports: dyspnea GI: Denies: abdominal pain, nausea or vomiting : Denies: flank pain, difficulty voiding, dysuria, urinary frequency or urinary urgency Skin/Breast: Denies: rash or pruritus Medications/Allergies Home Medications Medication Instructions Recorded Confirmed Last Taken Type levothyroxine 88 mcg tablet 88 mcg PO DAILY 02/16/20 05/10/21 10/11/20 History albuterol sulfate [ProAir HFA] 2 puff INHALATION Q6H PRN 04/06/20 05/10/21 10/12/20 History pregabalin 100 mg capsule 100 mg PO Q12H 08/04/20 05/10/21 10/11/20 History ibuprofen 400 mg PO TID PRN 10/05/20 05/10/21 10/11/20 History Aquatic therapy #1 ea 03/02/21 05/10/21 Unknown Rx albuterol sulfate 2.5 mg INHALATION Q6H PRN 05/10/21 05/10/21 Unknown History budesonide-formoterol [Symbicort] 2 puff INHALATION BID 05/10/21 05/10/21 Unknown History duloxetine 30 mg PO DAILY 05/10/21 05/10/21 Unknown History levofloxacin 750 mg PO DAILY 05/10/21 05/10/21 Unknown History memantine 10 mg PO DAILY 05/10/21 05/10/21 Unknown History prednisone See Rx Instructions .ROUTE .COMPLEX 05/10/21 05/10/21 Unknown History revefenacin [Yupelri] 175 mcg INHALATION DAILY 05/10/21 05/10/21 Unknown History tizanidine 2 mg PO TID 05/10/21 05/10/21 Unknown History Allergies Allergy/AdvReac Type Severity Reaction Status Date / Time No Known Allergies Allergy Verified 05/10/21 07:09 PFSH Acute PFSH: Social History Smoking and tobacco status: current every day smoker cigarettes [ Other cigarette details: 5 per day ] Quit status (tobacco): considering quitting Alcohol intake: never Physical Exam Narrative: EXAM NARRATIVE: GENERAL: Patient is alert, awake and oriented x3. Patient is moderate to severe distress, she is NECK: No jugular vein distension. HEENT: No cyanosis. No icterus. No pallor. HEART: Regular S1 and S2. No murmur, rub or gallop. LUNGS: C reduced breath sound bilaterally. ABDOMEN: Soft, nontender and nondistended. Positive bowel sounds. No guarding, rebound or tenderness. CENTRAL NERVOUS SYSTEM: Grossly nonfocal. EXTREMITIES: Lower extremities without edema bilaterally. Data : 05/10/21 04:30 05/10/21 04:30 A&P Assessment and plan (1) ST elevation myocardial infarction (STEMI): Status: Acute Additional A&P Information We will proceed with emergent left heart cath and PCI if indicated. Further plan will be advised as per progress of the patient. Attestations Medical Necessity Statement*: Patient will be observed over the next 24 hours. Coding Level of Care Code New Pt Acute Rattling Machine Tender for Jake Russell Patient Type New History Comprehensive Exam Comprehensive Medical Decision Making Moderate Complexity Diagnoses ST elevation myocardial infarction (STEMI) I21.3
--- NOTE | 2021-05-09 12:15 | ED_ITS ---
HPI - Chest Pain General: Chief Complaint: Chest Pain Stated Complaint: STEMI Time Seen by Provider: 05/09/21 12:10 History of Present Illness: MD complaint: chest pain Onset (ago): hour(s) Timing of current episode: episodic Prior episodes: No Onset: during rest Pain location: substernal Pain radiation: right arm and left arm Severity: severe Quality: tightness and heaviness Relieving factors: nothing Exacerbating factors: nothing Associated symptoms: Reports diaphoresis and dyspnea; Deny abdominal pain, fever(s), leg edema, nausea, palpitations, sense of impending doom, syncope or vomiting Treatment prior to arrival: aspirin, nitroglycerin and oxygen Review of Systems Const: Reports: diaphoresis; Denies: fever(s) ENMT: Denies: throat pain, ear or mastoid pain, nasal discharge or nasal congestion Card: Denies: palpitations or syncope Resp: Reports: dyspnea GI: Denies: abdominal pain, nausea or vomiting : Denies: flank pain, difficulty voiding, dysuria, urinary frequency or urinary urgency Skin/Breast: Denies: rash or pruritus PFSH ED PFSH: Social History Smoking and tobacco status: current every day smoker cigarettes [ Other cigarette details: 5 per day ] Quit status (tobacco): considering quitting Alcohol intake: never Physical Exam Const: GENERAL APPEARANCE: cooperative ORIENTATION/CONSCIOUSNESS: Yes awake, Yes oriented to person, Yes oriented to place and Yes oriented to time HENMT: COMMON NORMALS: normocephalic and hearing grossly normal bilaterally HEAD & SCALP: normocephalic Neck/C-Spine: COMMON NORMALS: no JVD Resp: COMMON NORMALS: normal respiratory effort, No retractions, No use of accessory muscles and clear to auscultation bilaterally AUSCULTATION: clear to auscultation bilaterally Cardio: COMMON NORMALS: no JVD, regular rhythm and No murmurs present (Cardio) RATE: bradycardic RHYTHM: regular rhythm GI: COMMON NORMALS: Soft to palpation and No hepatosplenomegaly present AUSCULTATION: Yes normoactive bowel sounds PALPATION: Yes Soft to palpation, No Tenderness to palpation present (GI), No Guarding due to palpation present (GI) and Yes No hepatosplenomegaly present Extremity: COMMON NORMALS: normal to inspection, capillary refill normal, no clubbing, cyanosis or edema, no calf tenderness and no pedal edema Neuro: SENSORIUM/ORIENTATION: Yes oriented to person, Yes oriented to place and Yes oriented to time MDM - Chest Pain MDM Narrative: Medical decision making narrative: Field EKG shows a obvious ST elevation NV in the inferior leads with reciprocal changes. Patient is actively having chest pain because a STEMI alert had been called cath crew was in the emergency room and the patient arrived Dr. Castillo came to the exam room within a few minutes of the patient being transferred to the cot. We reviewed the EMS EKG and both concur that it is a STEMI patient is actively having chest pain she is mildly bradycardic. Initial prep was done for Advertising Columnist Dr. Jaimes asked to proceed directly to the Advertising Columnist. We did not have the opportunity to give heparin or loading dose of clopidogrel in the emergency room Dr. Jaimes is aware and they are planning on completing those therapies in the cardiac Advertising Columnist. Discharge Plan Discharge Patient Disposition: Admitted As Inpatient Clinical Impression: ST elevation myocardial infarction (STEMI) Condition: Stable Coding Level of Care Code ED Proposal Review Analyst for Jake Russell
[2021-05-09 12:55] LABS: Basophils # 0.1 10^3/uL (0.0-0.1); Basophils % 0.8 %; Eosinophils # 0.3 10^3/uL (0.0-0.8); Eosinophils % 2.6 %; Hematocrit 40.7 % (37.0-47.0); Hemoglobin 13.5 g/dL (11.5-15.3); Lymphocytes # 2.4 10^3/uL (0.8-4.8); Lymphocytes % 23.4 %; Mean Corpuscular HGB Conc 33.2 g/dL (30.0-36.0); Mean Corpuscular Hemoglobin 30.5 pg (28.0-34.0); Mean Corpuscular Volume 91.9 fl (81-99); Monocytes # 0.9 10^3/uL (0.2-0.9); Monocytes % 8.8 %; Neutrophils # 6.65 10^3/uL (1.8-7.7); Neutrophils % 64.1 %; Nucleated Red Blood Cells % 0 %; Platelet Count 404 10^3/cmm (130-400); Red Blood Count 4.43 10^6/uL (4.1-5.3); Red Cell Distribution Width 13.2 % (12.1-15.1); White Blood Count 10.4 10^3/uL (4.0-10.0)
[2021-05-09 13:08] LABS: Troponin(5th) Baseline 35 ng/L (0-10)
[2021-05-09 13:09] LABS: Alanine Aminotransferase 14 U/L (0-33); Albumin Level 3.8 g/dL (3.5-5.2); Alkaline Phosphatase 68 IU/L (35-105); Anion Gap 18.1 (5-19); Aspartate Amino Transferase 16 U/L (0-32); Blood Urea Nitrogen 15 mg/dL (8-23); Calcium 8.6 mg/dL (8.5-10.5); Carbon Dioxide 24 mmol/L (22-29); Chloride 100 mmol/L (98-107); Creatine Phosphokinase 52 U/L (26-192); Globulin 2.6 g/dL (1.3-4.6); Glomerular Filtration Rate 100.6 mL/min (90-130); Glucose 107 mg/dL (65-115); Osmolality Calculated 289 mOsm/kg (285-295); Potassium 3.1 mmol/L (3.5-5.1); Sodium 139 mmol/L (136-145); Total Bilirubin 0.7 mg/dL (0.15-1.2); Total Protein 6.4 g/dL (6.6-8.7)
[2021-05-09] MEDS: sodium chloride 0.9% 1,000 ML 100 ML IV (13:30)
--- NOTE | 2021-05-09 13:41 | PC.NURSE ---
Patient came into ER with known STEMI prior to arrival. Pt vital signs were obtained, Dr. Junior and wastewater analyst lab analyst team at bedside upon arrival. After vitals were obtained and patient was stripped down with gown applied pt was taken straight to wastewater analyst lab analyst. Pt left for wastewater analyst lab analyst at 1210 without any medical interventions done here in the ER.
[2021-05-09 14:00] VITALS: PULSE 65
--- NOTE | 2021-05-09 14:11 | ECG_ITS ---
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 Measurements Intervals [place] Rate: 62 P: 65 CO: 146 QRS: 69 QRSD: 98 T: 82 QT: 422 QTc: 432 Interpretive Statements SINUS RHYTHM NONSPECIFIC ST & T-WAVE ABNORMALITY Compared to ECG 10/01/2018 11:41:31 No significant changes Electronically Signed On 05-11-2021 19:30:48 LIFE ENRICHMENT MANAGER by Sarah Boucher M.D. [id number]
[2021-05-09 14:27] VITALS: TEMP 36.6
[2021-05-09 15:10] LABS: Troponin(5th) Baseline 313 ng/L (0-10)
[2021-05-09 17:44] LABS: Troponin 5 2HR 747.4 ng/L (0-10); Troponin 5 2HR Delta 434.4 ABS# (0-10)
[2021-05-09] MEDS: albuterol 8 gm MDI 2 PUFF INHALATION (17:57)
[2021-05-09 17:58] VITALS: PULSE 55; RESP 17; O2SAT 99
--- NOTE | 2021-05-09 18:11 | ECG_ITS ---
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 Measurements Intervals [place] Rate: 58 P: 67 DC: 135 QRS: 61 QRSD: 96 T: 269 QT: 470 QTc: 464 Interpretive Statements SINUS BRADYCARDIA MODERATE T-WAVE ABNORMALITY, CONSIDER INFERIOR ISCHEMIA [-0.1+ mV T-WAVE IN II/aVF] Compared to ECG 05/09/2021 14:06:47 Possible ischemia now present Sinus rhythm no longer present T-wave abnormality still present Electronically Signed On 05-11-2021 19:28:53 SPECIAL EDUCATION ASSOCIATE by Sarah Boucher M.D. [id number]
--- NOTE | 2021-05-09 19:35 | PC.NURSE ---
[address] Castillo. All access sites observed. Pulses palpated and skin assessed. Fingers on right hand dusky. Pulses intact. Orders to continue to monitor. [address] Castillo that patient is requesting her breathing treatment. Orders received. Also clarified plan for the patient's TR bands. Orders to follow protocol to remove radial band first, and then forearm band. 1745 1 ml removed from radial band. 1800 2 ml removed from radial band. 1815 2 ml removed from radial band. 1820 Scant bleeding from radial site. 5 ml replaced to TR band.
[2021-05-09 20:08] VITALS: PULSE 74; RESP 16; O2SAT 100
[2021-05-09 20:22] LABS: Troponin 5 6HR 1220 ng/L (0-10); Troponin 5 6HR Delta 907 ng/L (0-12)
--- NOTE | 2021-05-09 21:29 | PC.NURSE ---
Addendum entered by Jorge L Beth RN 05/09/21 21:29: Area cleansed with alcohol, placed a folded 2x2 over site, and covered with biooclusive. Original Note: TR bands off. No hematoma noted. small area of bruising to right radial site.
[2021-05-09 22:00] VITALS: PULSE 63
[2021-05-10] VITALS (10 sets, daily range): BP systolic 95–132; BP diastolic 71–92; PULSE 54–77; RESP 14–22; TEMP 36.7–36.9; O2SAT 94–100
[2021-05-10] MEDS: sodium chloride 0.9% 1,000 ML 100 ML IV (03:02)
[2021-05-10 05:02] LABS: Basophils # 0.1 10^3/uL (0.0-0.1); Basophils % 0.9 %; Eosinophils # 0.2 10^3/uL (0.0-0.8); Eosinophils % 2.3 %; Hematocrit 37.5 % (37.0-47.0); Hemoglobin 12.6 g/dL (11.5-15.3); Lymphocytes % 26.2 %; Mean Corpuscular HGB Conc 33.6 g/dL (30.0-36.0); Mean Corpuscular Hemoglobin 30.9 pg (28.0-34.0); Mean Corpuscular Volume 91.9 fl (81-99); Mean Platelet Volume 9.5 fL (7.4-10.4); Monocytes # 0.8 10^3/uL (0.2-0.9); Monocytes % 10.3 %; Neutrophils # 4.63 10^3/uL (1.8-7.7); Neutrophils % 60.2 %; Nucleated Red Blood Cells % 0 %; Platelet Count 326 10^3/cmm (130-400); Red Blood Count 4.08 10^6/uL (4.1-5.3); Red Cell Distribution Width 13.2 % (12.1-15.1); White Blood Count 7.7 10^3/uL (4.0-10.0)
[2021-05-10 05:18] LABS: Anion Gap 13.1 (5-19); Blood Urea Nitrogen 9 mg/dL (8-23); Calcium 7.6 mg/dL (8.5-10.5); Carbon Dioxide 25 mmol/L (22-29); Chloride 107 mmol/L (98-107); Glomerular Filtration Rate 124.2 mL/min (90-130); Glucose 89 mg/dL (65-115); Osmolality Calculated 292 mOsm/kg (285-295); Potassium 3.1 mmol/L (3.5-5.1); Sodium 142 mmol/L (136-145)
[2021-05-10 06:09] LABS: Troponin T (5th) Once 1403 ng/L (0-10)
--- NOTE | 2021-05-10 07:12 | PC.PHAR ---
PTS STATES SHE IS UNSURE WHAT MEDICATIONS SHE TAKES -PT STATES SHE HAS HOME HEALTH WITH [facility] WAITING FOR [facility] TO OPEN TO GET MED LIST FAXED-MEDICATIONS ENTERED ARE MEDS THAT SHOW HAVE BEEN FILLED ON EXT MED HISTORY-
[2021-05-10] MEDS: albuterol 8 gm MDI 2 PUFF INHALATION ×2 (07:57→11:20)
[2021-05-10] MEDS: aspirin 81 mg EC Tablet PO (09:44)
--- NOTE | 2021-05-10 10:22 | PC.CHAP ---
Pastoral Care Encounter/Spiritual Assessment Type of Contact [] Declined footwear sales leader visit [] Patient/Family/Request visit [] Outpatient visit [] Follow-up visit [] Physician referral [] Code/Alert [] Routine visit [] Staff referral [] Actively dying [] Patient sleeping [] Family support [] [] Out of room [] Palliative care [] [] Receiving care in room [] Pre-surgical visit [] Trauma [] Long length of stay [x] ICU visit [] Other: Relational/Emotional Strength [] Patient feels connected with others/family/visitors/staff [] Distress [] Loneliness/isolation [] Abandonment Spirituality of Patient [] Person of Dianna [] Attends Temple of their Dianna [] Believes in Prayer [] Reads Bible or Jainism materials [] There are Spiritual issues to be addressed Reed Fixer Interventions [x] Prayer [] Active listening [] Non-anxious presence [] Spiritual/emotional support [] Crisis/trauma care [] Spiritual counseling [] Bereavement support [] Provided bereavement packet [] Provided Bible/devotional materials [] Provided toy/stuffed animal, coloring book to patient or family member [] Provided Communion [] Anointing/[place] [] Salvation [x] Completed spiritual assessment [] Other: Impact on Illness or Injury [] Angry [] Fearful [] Anxious [] Often cries [] Exhaustion [] Unable to work [] Unable to attend confucianism [] Unable to walk/stand [] Unable to read [] Unable to drive [] Unable to eat/drink [] Unable to sleep [] Unable to be with family [] Patient intubated [] Other: Summary Time spent with patient
--- NOTE | 2021-05-10 13:22 | P.DS_ITS ---
Discharge Providers Date of Admission: 05/09/21 13:24 Date of Discharge: May 10, 2021 Attending Provider at Admission: Scott Castillo MD Attending Provider at Discharge: Scott Castillo MD Primary Care Provider: Carlita Lopez DO Diagnoses at Discharge Discharge Diagnosis (1) ST elevation myocardial infarction (STEMI): Status: Acute Reason for Visit Reason for Visit: STEMI Hospital Course Hospital Course Lucy Dotson is a 65 year old female past medical history significant for tobacco abuse presented with chest pain off and on basis for the last couple of hours presented to the ER through EMS when pain become more consistent ST elevation NE was alerted due to inferior lead ST elevation with reciprocal changes. She was taken to the Reimbursement Coordinator we tried to go from the radial approach our wire got stuck repeat injection showed small wire perforation therefore I will switch from radial to groin approach in this emergency. She was noted to have distal RCA occlusion and moderate mid RCA, distal RCA was the culprit. It was treated with balloon angioplasty followed by drug-eluting stent. Left coronary angiogram showed mid moderate and mid circumflex long moderate to severe lesion. It appeared to me that both might be significant and I would like to fix it but since keeping in mind perforation of the right radial vessel I thought not to prolonged anticoagulation but fixing this lesion end-stage limb with the help of FFR. Postoperative course remains uncomplicated patient did not develop significant hematoma of right arm. She was watched for compartment syndrome there was no compartment syndrome noted. She felt much better. Next m orning she was discharged home since due to no beds available to keep her and because of lot of patient's with COVID's around her. We will bring her back for staged PCI with FFR guidance over next 2 weeks. Patient was loaded with Effient but I will switch her to 600 mg of Plavix because of her being underweight and high risk for bleeding. Groin wound looks good. Physical Exam Narrative: EXAM NARRATIVE: GENERAL: Patient is alert, awake and oriented x3. Patient is moderate to severe distress, she is NECK: No jugular vein distension. HEENT: No cyanosis. No icterus. No pallor. HEART: Regular S1 and S2. No murmur, rub or gallop. LUNGS: C reduced breath sound bilaterally. ABDOMEN: Soft, nontender and nondistended. Positive bowel sounds. No guarding, rebound or tenderness. CENTRAL NERVOUS SYSTEM: Grossly nonfocal. EXTREMITIES: Lower extremities without edema bilaterally. Discharge Data Data Completed and Pending: Pending at discharge Category Date Time Status DIE GRINDER request for service Stat Exams 05/09/21 12:11 Taken Labs from last 24 hours 05/10/21 05/10/21 05/10/21 04:30 04:30 04:30 WBC 7.7 RBC 4.08 L Hgb 12.6 Hct 37.5 MCV 91.9 MCH 30.9 MCHC 33.6 RDW 13.2 Plt Count 326 MPV 9.5 Neut % (Auto) 60.2 Lymph % (Auto) 26.2 [place] % (Auto) 10.3 Eos % (Auto) 2.3 Baso % (Auto) 0.9 Neut # (Auto) 4.63 Lymph # (Auto) 2.0 [place] # (Auto) 0.8 Eos # (Auto) 0.2 Baso # (Auto) 0.1 Nucleated RBC % (a uto) 0 Nucleated RBCs # 0.0 Sodium 142 Potassium 3.1 L Chloride 107 Carbon Dioxide 25 Anion Gap 13.1 BUN 9 Creatinine 0.5 GFR Calculation 124.2 Glucose 89 Calculated Osmolal ity 292 Calcium 7.6 L Troponin T Gen 5 n g/L 1403 H* Troponin T Baselin e Troponin T 120 Min [place] Delta Troponin T Troponin T Hi Sens 6Hr Troponin T Hi Sens 6Hr Delta 05/09/21 05/09/21 05/09/21 19:36 16:35 14:08 WBC RBC Hgb Hct MCV MCH MCHC RDW Plt Count MPV Neut % (Auto) Lymph % (Auto) [place] % (Auto) Eos % (Auto) Baso % (Auto) Neut # (Auto) Lymph # (Auto) [place] # (Auto) Eos # (Auto) Baso # (Auto) Nucleated RBC % (a uto) Nucleated RBCs # Sodium Potassium Chloride Carbon Dioxide Anion Gap BUN Creatinine GFR Calculation Glucose Calculated Osmolal ity Calcium Troponin T Gen 5 n g/L Troponin T Baselin e 313 H* Troponin T 120 Min [place] 747.4 H Delta Troponin T 434.4 H* Troponin T Hi Sens 6Hr 1220 H Troponin T Hi Sens 6Hr Delta 907 H* Vitals: Last Vital Signs Temp 97.9 F 05/09/21 14:27 Pulse 76 05/10/21 11:38 Resp 18 05/10/21 11:38 BP 127/56 05/09/21 12:08 Pulse Ox 97 05/10/21 11:38 Discharge Plan Discharge Patient Disposition: Home Condition: Stable Prescriptions: New clopidogrel 75 mg tablet 75 mg PO DAILY Qty: 90 RF: 4 aspirin 81 mg Tablet,Delayed Release (Dr/Ec) 81 mg PO DAILY Qty: 90 RF: 4 simvastatin 40 mg tablet 40 mg PO QPM Qty: 30 RF: 5 pantoprazole 40 mg tablet,delayed release (DR/EC) 40 mg PO DAILY 30 Days Qty: 30 RF: 3 metoprolol succinate 25 mg tablet extended release 24 hr 12.5 mg PO DAILY Qty: 30 RF: 3 Continued pregabalin [Lyrica] 100 mg capsule 100 mg PO Q12H RF: 0 (DME) Aquatic therapy See Rx Instructions .Route .MEDSUPPLY Qty: 1 RF: 0 levothyroxine [Synthroid] 88 mcg tablet 88 mcg PO DAILY RF: 0 albuterol sulfate [ProAir HFA] 90 mcg/actuation HFA aerosol inhaler 2 puff INHALATION Q6H PRN (Reason: Shortness Of Breath) RF: 0 prednisone 10 mg tablet See Rx Instructions .ROUTE .COMPLEX RF: 0 tizanidine 2 mg tablet 2 mg PO TID RF: 0 albuterol sulfate 2.5 mg /3 mL (0.083 %) solution for nebulization 2.5 mg inhalation Q6H PRN (Reason: Shortness Of Breath) RF: 0 levofloxacin 750 mg tablet 750 mg PO DAILY RF: 0 memantine 10 mg tablet 10 mg PO DAILY RF: 0 duloxetine 30 mg capsule,delayed release(DR/EC) 30 mg PO DAILY RF: 0 Symbicort 160-4.5 mcg/actuation HFA aerosol inhaler 2 puff INHALATION BID RF: 0 Yupelri 175 mcg/3 mL solution for nebulization 175 mcg INHALATION DAILY RF: 0 ibuprofen 400 mg Tablet 400 mg PO TID PRN (Reason: pain ) RF: 0 Discharge Orders: Discharge Order (Routine); Ordered 05/10/21 Ordered By: Scott Castillo Referrals: Selin Carvalho, FSR [Nurse Practitioner] - (THIS FOLLOW UP HAS BEEN SCHEDULED AT [facility] ,SELIN CARVALHO APN FOR FOLLOWING DATE OF MAY 23, 2021 AT 2:15 PM PLEASE HAVE SLEIN CARVALHO . PLEASE CHECK IF NEXT PROCEDURE IF SCHEDULED .) Carlita Lopez, DO [Primary Care Provider] - (THIS APPOINTMENT HAS BEEN SCHEDULED ,[facility] ,DR.DEBORAH LOPEZ FOR THE FOLLOWING DATE SaturdayMAY 15,AT 10:00 AM ) Discharge Diet: Cardiac Discharge Activity: Increase activity as tolerated Patient Instructions: Metoprolol (By mouth), Aspirin (By mouth), Simvastatin (By mouth), Clopidogrel (By mouth), Pantoprazole (By mouth), Heart Attack (DC), Coronary Angioplasty (DC), Heart Healthy Diet (DC), Opioid Safety, Post Heart Attack Stoplight Activity Restrictions/Additional Instructions: Follow-up with Ms. Selin Carvalho in 7 to 10 days. Schedule coronary angiogram for stage PCI to circumflex and mid LAD in first week of May with Dr. Castillo. Please continue clopidogrel 75 mg and aspirin 81 mg along with rest of the medicines. Discharge Attestations Time Spent in Discharge Care*: greater than 30 min Specific Discharge Activities: educating patient Quality Metrics Clinical Quality Measures During this hospital stay, did patient experience: AMI Clinical Trial Participant: No Contraindication to aspirin (AMI): Aspirin given Contraindication to statin: Statin prescribed Contraindication to PCI: PCI performed Coding Level of Care Code New Pt Acute Chg FW DC note Patient Type New History Comprehensive Exam Comprehensive Medical Decision Making Moderate Complexity Diagnoses ST elevation myocardial infarction (STEMI) I21.3
[2021-05-10] MEDS: clopidogrel 300 mg Tablet 600 MG PO (19:30)
--- NOTE | 2021-05-11 09:46 | PC.NURSE ---
Was alerted by floor staff that patient had called with discharge medication instructions. Attempted to call patient. No answer. Left voicemail.
--- NOTE | 2021-05-11 10:19 | PC.NURSE ---
[facility] for a well persons check. Dispatch reports they will have officer contact hospital once they make contact with patient so that discharge medication education can be performed to ensure patient is aware of correct dose.
--- NOTE | 2021-05-11 10:29 | PC.NURSE ---
Dr. Castillo contacted by telephone to ensure correct patient education of discharge medications performed. Dr. Castillo states he spoke with patient via phone and went over medications again approx 10 minutes ago. Shortly after getting off of the phone with Dr. Castillo, patient called my office phone as the [facility] had reached her and asked her to contact me. I was able to speak with patient. Patient performed teachback for her medication regimen and stated the same instructions that Dr. Castillo had given. Patient denies further questions. Phone number on file for patient is incorrect. CORRECT phone number to reach patient is [phone]. Loop closed.
== END 2021-05-10 16:00 | disposition home health service (06) | DRG 247 ==
LOC: ER 12:18 → ICU 13:24
PROVIDERS: Admitting Provider Internal Medicine Cardiovascular Disease; Emergency Provider Family Medicine; PCP Family Medicine; Visit Provider Internal Medicine Cardiovascular Disease
PROC: 027034Z Dilation of Coronary Artery, One Artery with Drug-eluting Intraluminal Device, Percutaneous Approach (ICD-10-PCS; principal; 2021-05-09 12:00)
PROC: 027034Z Dilation of Coronary Artery, One Artery with Drug-eluting Intraluminal Device, Percutaneous Approach (ICD-10-PCS; 2021-05-09 12:00)
DX: I21.19 ST elevation (STEMI) myocardial infarction involving other coronary artery of inferior wall (principal); F17.210 Nicotine dependence, cigarettes, uncomplicated; Z79.52 Long term (current) use of systemic steroids; I25.10 Atherosclerotic heart disease of native coronary artery without angina pectoris
CPT/HCPCS: 36415; 80048; 80053; 82550; 84484; 85025; 85347; 93005; 93454; 94640; 99285; C1725; C1760; C1769; C1874; C1887; C1894; C9600; J0461; J1644; J2250; J3010; J3490; J3535; J7030; Q9967

== ENCOUNTER → 2021-05-23 14:20 | Outpatient (BNVA) | payer MEDICAID, SELFPAY | PROVIDERS: PCP Family Medicine; Referring Provider Internal Medicine Cardiovascular Disease; Visit Provider Internal Medicine Cardiovascular Disease | DX: I21.3 ST elevation (STEMI) myocardial infarction of unspecified site (principal); Z20.822 Contact with and (suspected) exposure to COVID-19 | CPT/HCPCS: 80048; 85025; 85610; 87635 ==

== ENCOUNTER 2021-05-31 06:50 | Outpatient (CLI) | payer MEDICAID, SELFPAY ==
[2021-05-31] VITALS (15 sets, daily range): BP systolic 120–150; BP diastolic 77–103; PULSE 59–69; RESP 4–22; TEMP 36.7; O2SAT 91–99; BMI 20.7
--- NOTE | 2021-05-31 07:30 | XACV_ITS ---
Exam Room: 2 Ht: 165 cm Wt: 57 kg BSA: 1.61 m2 Gender: Female : 1955 Any Known Allergies: No known allergies Exam Priority: Routine Procedure(s): Procedure Description: Diagnostic procedure Procedure Description: Coronary Angiography Procedure Description: Pressure Wire Diagnostic Cath Status: Elective Diagnostic Findings * Left Main has no disease. * Mid Left Anterior Descending: moderate 50% stenosis, KAYLYNN: 3 flow. * Proximal Right Coronary Artery to Mid Right Coronary Artery: mild 40% stenosis, KAYLYNN: 3 flow. * Mid Circumflex: obstructive 60% stenosis, KAYLYNN: 3 flow. * Coronary angiography shows right dominance. PCI Status: Elective Conclusions 1. This is a patient who presented with ST elevation OK few days back at that time distal RCA was treated he was also noted to have moderate lesion of circumflex and mid LAD. Due to uncooperativeness of the patient on the table we did not address circumflex and LAD lesion. Patient was brought in today to assess and treat the lesion. IFR of both mid LAD and circumflex lesion was performed which turned out to be nonsignificant. Medical management was advised. Previously placed distal RCA stent was widely patent without significant in-stent thrombosis or restenosis.. 2. I 3. FR: After equalizing the distal and proximal pressure of 4. I 5. FR wire proximal to the lesion, mid LCx lesion was crossed with 6. I 7. FR wire. Spot IFR was noted to be nonsignificant 8. 0.96 9. IFR: After equalizing the distal and proximal pressure of IFR wire proximal to the lesion, mid L 10. AD 11. lesion was crossed with IFR wire. Spot IFR was noted to be nonsignificant 12. 0.94. 13. There is obstructive coronary artery disease with three vessel disease. Recommendations * Continue medical management and risk factor modification. Diagnostic RX Recommendation: medical therapy and/or counseling Pressures Phase:Rest AO : 94 / 74 ( 85 ) @ 7:04:00 AM 123 / 66 ( 88 ) @ 7:14:00 AM 129 / 67 ( 93 ) @ 7:24:00 AM 115 / 71 ( 91 ) @ 7:25:00 AM Clinical Evaluation EBL: 5mL-10mL Procedural Details Procedure Consent Obtained. Current Diagnosis : Chest Pain. Pre-Procedure Time Out. Identified patient by full name and date of as verbalized by the patient/guarantor. Does the consent match the physician's order: Yes. Accurate & Complete Informed Consent: Yes. Inpatient/Outpatient History & Physical on Chart: Yes. If H&P is completed, is and addenduem needed: No; If yes, is the addendum complete: N/A. Visualize and Verify Site with Patient/Guarantor: N/A. Relevant Radiology Images available: Yes. Pre-op teaching completed and patient verbalized understanding. The risks, benefits, and alternatives of sedation and/or procedure were discussed by physician. The patient agrees to continue. Procedure started. Corey Pringle scrubbing and Flavia Tubbs circulating. [facility] Clinical Fraility Score: 3: Managing Well. Director Utilization Management Indications: Stable Known CAD. Chest Pain Symptom Assessment: Atypical Angina. Correct patient, site and procedure confirmed by cath team. Current diagnosis: Chest Pain. PERRLA. 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 Lungs clear x 5 lobes. IV Site on Arrival: 20 gauge in the left anticubital. IV Fluids: 0.9% NaCl at KVO. 0 mL infused prior to lab support service tech. Pre Procedural Pulses: right dorsalis pedis was 2+. Pre Procedural Pulses: left dorsalis pedis was 1+. Pre Procedural Pulses: right posterior tibial was 1+. Pre Procedural Pulses: left posterior tibial was 2+. Oxygen started at 2liters/min via nasal canula. bilateral groins was prepped with chloroprep then draped in the usual sterile fashion. Physician notified. Baseline sample Acquired. HR: 58 BPM. Physician arrived. Physician scrubbed in. Immediate Pre-Procedure Time Out. Correct Patient: Yes; Correct Procedure: Yes; Correct Site: Yes; Correct Patient Position: Yes; Correct Supplies: Yes; Dried Flammable Prep: Yes; Blood Products Available: N/A;. Lidocaine 1% infiltrated to the right groin. Arterial access obtained with micropuncture set. A 5 mongolian JR4 catheter in over wire. Multiple views taken of right coronary artery. Catheter removed over the standard wire. 6 mongolian XB 3 guide catheter was inserted over the wire. Multiple views taken of left coronary artery. IFR guidewire was advanced through the guide catheter to lesion in the mid CX. Results: 0.96. wire redirected to the Mid LAD. Results: 0.94. Wire out. Guide catheter out. A Right femoral angiogram was performed to determine safe placement of closure device. A Angio-Seal VIP ([facility]) was successful obtaining hemostatsis at the Right Femoral artery insertion site. Post Procedure: Pulses reassessed and unchanged. PERRLA. 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 No VTE prophylaxis required. Medication's Wasted: Lidocaine 1% = 2 mL. Medication's Wasted: Nitro = 50 mg. Medication's Wasted: Heparin = 1000 units. Medication's Wasted: Other = Fentanyl 50 mg. Total IV fluids: 60 mL. Contrast type used: Visipaque 320 mgI/mL, 500 mL bottle. Complications: None. Estimated blood loss: 5mL-10mL. Responsiveness - Normal response to verbal stimuli; alert and oriented, PERRLA. Airway - Unaffected, no intervention required; spontaneous ventilation. Circulation: W/N/L, pulses unchanged. Nausea/Vomiting: No. Procedure completed. Patient transferred by stretcher to CPRU. Vital chart was stopped. Access Site Site: Right Femoral artery Sheath Size: 6 Fr Hemostasis Method: Angio-Seal VIP ([facility]) Hemostasis Success: Successful Procedure Medications Start: 8:48 AM Stop: 8:48 AM Medication: Versed 1 mg and Fentanyl 25 mcg Amount: 1 Route: I.V. Start: 8:55 AM Stop: 8:55 AM Medication: Versed 1 mg and Fentanyl 25 mcg Amount: 1 Route: I.V. Start: 9:14 AM Stop: 9:14 AM Medication: Heparin Amount: 5000 units Route: I.V. I, the attending physician, have reviewed and verified all procedure medications. Yes, all medications given per verbal order History/Risk Factors Hypertension: No Dyslipidemia: No Peripheral Arterial Disease (PAD): No Myocardial Infarction (OK): Yes Obesity: No Renal Disease: No Prior Interventions PCI: Yes Valve Surgery: No Date of PCI: 05/09/2021 Report Signatures Finalized by Scott Castillo MD on 06/05/2021 09:00 PM
[2021-05-31] MEDS: diphenhydrAMINE 50 mg Capsule PO (08:10)
--- NOTE | 2021-05-31 08:43 | PC.NURSE ---
After reviewing old films Dr. Castillo determined the patient would be better served with surgery.Dr. Castillo spoke extensively with the family and it was decided the patient would go home from [facility]U.
--- NOTE | 2021-05-31 08:45 | P.HPUD_ITS ---
Surgery/Procedure H&P Update DATE OF PROCEDURE: May 31, 2021 DATE H&P PERFORMED: 05/09/21 H&P UPDATE INFORMATION: I have reviewed H&P completed within last 30 days, I have examined patient prior to procedure and No changes to prior documentation PREOP DIAGNOSIS: cervicalspondylosis with radiculopathy PRIMARY INDICATION FOR PROCEDURE: Patient was brought in for stage IFR guided PCI. 65-year-old female who pre sented with ST elevation [place] on 09 May. While going through the right wrist severe spasm with questionable perforation of the radial artery was noted. Patient right coronary artery which was culprit was fixed for ST relation [place]. She was also noted to have moderate lesions of mid LAD and circumflex. Patient was not also cooperative during the procedure since there was question regarding perforation of the right radial and because of the fact she was not cooperative stage IFR guided PCI of LAD and circumflex was planned. It is the reason patient come back today. She has been explained all risk benefits and alternative for the procedure. She understand risk for stroke major minor bleed urgent emergent bypass surgery and vascular surgery hematoma infection. She is on DAPT, she would like to proceed with it. PLANNED PROCEDURE: Operation Date: 05/31/21 08:30 Proposed Procedures p Percutaneous Coronary Intervention(Left) - Scott Castillo MD AIRWAY EVAL/ANESTHESIA PLAN: normal airway, ASA II, Risks, benefits & alternatives of sedation and/or procedure discussed and Patient agrees to continue as planned
--- NOTE | 2021-05-31 12:40 | PC.NURSE ---
The patient ambulated herself to [facility] and back to her room with no difficulties or complaints. No redness, swelling or bleeding noted.
== END 2021-05-31 13:11 | disposition home or self-care (01) ==
PROVIDERS: PCP Family Medicine; Visit Provider Internal Medicine Cardiovascular Disease
DX: I21.3 ST elevation (STEMI) myocardial infarction of unspecified site (principal); I25.10 Atherosclerotic heart disease of native coronary artery without angina pectoris; F17.210 Nicotine dependence, cigarettes, uncomplicated
CPT/HCPCS: 36415; 93571; 93572; C1760; C1769; C1887; C1894; J1644; J2250; J3010; J3490; J7030; Q0163; Q9967

== ENCOUNTER → 2021-06-08 11:00 | Outpatient (BNVA) | payer MEDICAID, SELFPAY | PROVIDERS: PCP Family Medicine; Visit Provider Nurse Practitioner Family | DX: Z09 Encounter for follow-up examination after completed treatment for conditions other than malignant neoplasm (principal); I25.10 Atherosclerotic heart disease of native coronary artery without angina pectoris | CPT/HCPCS: 80048 ==

== ENCOUNTER → 2021-09-12 12:58 | Outpatient (BNVA) | payer MEDICARE, MEDICAID, SELFPAY | PROVIDERS: PCP Family Medicine; Visit Provider Physician Assistant | DX: M47.812 Spondylosis without myelopathy or radiculopathy, cervical region (principal); Z98.1 Arthrodesis status | CPT/HCPCS: 72040; 99213; 99214 ==

== ENCOUNTER → 2021-10-03 12:36 | Outpatient (BNVA) | payer MEDICARE, MEDICAID, SELFPAY | PROVIDERS: PCP Family Medicine; Visit Provider Physician Assistant | DX: M51.36 Other intervertebral disc degeneration, lumbar region (principal); M47.816 Spondylosis without myelopathy or radiculopathy, lumbar region | CPT/HCPCS: 72110; 99203; 99213; 99214 ==

== ENCOUNTER → 2022-02-28 10:00 | Outpatient (BNVA) | payer MEDICARE, MEDICAID, SELFPAY | PROVIDERS: PCP Family Medicine; Visit Provider Orthopaedic Surgery | DX: M19.012 Primary osteoarthritis, left shoulder (principal) | CPT/HCPCS: 99204 ==

== ENCOUNTER 2022-03-19 15:04 | Outpatient (CLI) | payer MEDICARE, MEDICAID, SELFPAY ==
--- NOTE | 2022-03-19 16:00 | CT_ITS ---
WS: [id number] NONCONTRAST CT LEFT SHOULDER TECHNIQUE: Noncontrast CT LEFT shoulder with coronal and sagittal reformatted images. CLINICAL INFORMATION: pre op planning COMPARISON: None. DLP: 374.[address] scans at [facility] use at least one of these dose optimization techniques: automated e xposure control; mA and/or kV adjustment per patient size (includes targeted exams where dose is matc hed to clinical indication); or iterative reconstruction. FINDINGS: Mild degenerative arthritis AC joint. Mild downsloping acromion. Mild narrowing of the subacromial sp manuel. Prior postoperative changes labral anchors. Advanced degenerative arthritis glenohumeral joint w ith hypertrophic spurring along the glenoid. Hypertrophic spurring along the humeral head. Spiculated lesion LEFT upper lobe measuring 7 mm.Additional spiculated lesion LEFT upper lobe posteri ping measuring 7 best seen on the sagittal imaging. Recommend 3 month follow-up chest CT. Fibrosis LE FT lung apex. Postoperative changes lower cervical spine. Impression IMPRESSION: 1. Spiculated lesion LEFT upper lobe measuring 7 mm.Additional spiculated lesion LEFT upper lobe pos teriorly measuring 7 best seen on the sagittal imaging. Recommend 3 month follow-up chest CT. 2. 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 3. Advanced degenerative arthritis glenohumeral joint with prior labral anchors. Prior biceps tendon anchor. 4. Advanced joint narrowing glenohumeral joint with hypertrophic spurring. 5. Mild degenerative arthritis at the AC joint.
== END 2022-03-19 15:05 | disposition home or self-care (01) ==
LOC: RAD 15:05
PROVIDERS: PCP Family Medicine; Visit Provider Orthopaedic Surgery
DX: Z01.818 Encounter for other preprocedural examination (principal); M19.012 Primary osteoarthritis, left shoulder; J84.10 Pulmonary fibrosis, unspecified
CPT/HCPCS: 73200

== ENCOUNTER → 2022-12-05 11:20 | Outpatient (BNVA) | payer MEDICARE, MEDICAID, SELFPAY | PROVIDERS: PCP Family Medicine; Visit Provider Internal Medicine Cardiovascular Disease | DX: I25.10 Atherosclerotic heart disease of native coronary artery without angina pectoris (principal); I25.2 Old myocardial infarction; Z95.5 Presence of coronary angioplasty implant and graft; J44.9 Chronic obstructive pulmonary disease, unspecified; Z72.0 Tobacco use | CPT/HCPCS: 99214 ==

== ENCOUNTER → 2024-05-07 14:16 | Outpatient (BNVA) | payer MEDICARE, MEDICAID, SELFPAY | PROVIDERS: PCP Family Medicine; Visit Provider Student in an Organized Health Care Education/Training Program | DX: M19.012 Primary osteoarthritis, left shoulder; G56.03 Carpal tunnel syndrome, bilateral upper limbs; G56.20 Lesion of ulnar nerve, unspecified upper limb; R20.0 Anesthesia of skin; R20.2 Paresthesia of skin | CPT/HCPCS: 73030; 99204 ==

== ENCOUNTER → 2024-07-21 10:27 | Outpatient (BNVA) | payer MEDICARE, MEDICAID, SELFPAY | PROVIDERS: PCP Family Medicine; Referring Provider Student in an Organized Health Care Education/Training Program; Visit Provider Psychiatry & Neurology Neurology | DX: G56.03 Carpal tunnel syndrome, bilateral upper limbs (principal) | CPT/HCPCS: 95912 ==

== ENCOUNTER → 2024-08-07 11:10 | Outpatient (BNVA) | payer MEDICARE, MEDICAID, SELFPAY | PROVIDERS: PCP Family Medicine; Visit Provider Student in an Organized Health Care Education/Training Program | DX: M19.012 Primary osteoarthritis, left shoulder (principal) | CPT/HCPCS: 20610; 77002; J3301; J9999 ==

== ENCOUNTER → 2024-09-08 15:46 | Outpatient (BNVA) | payer MEDICARE, MEDICAID, SELFPAY | PROVIDERS: PCP Family Medicine; Visit Provider Internal Medicine Cardiovascular Disease | DX: I95.1 Orthostatic hypotension (principal); M79.605 Pain in left leg; M79.604 Pain in right leg; I25.2 Old myocardial infarction; Z79.01 Long term (current) use of anticoagulants; Z95.5 Presence of coronary angioplasty implant and graft; Z87.891 Personal history of nicotine dependence | CPT/HCPCS: 99214 ==

== ENCOUNTER → 2024-09-23 09:45 | Outpatient (BNVA) | payer MEDICARE, MEDICAID, SELFPAY | PROVIDERS: PCP Family Medicine; Visit Provider Student in an Organized Health Care Education/Training Program | DX: G56.02 Carpal tunnel syndrome, left upper limb (principal); G56.22 Lesion of ulnar nerve, left upper limb; M79.641 Pain in right hand | CPT/HCPCS: 73130; 99214 ==

== ENCOUNTER 2024-09-28 15:50 | Emergency (ER) | payer OTHER, MEDICAID, SELFPAY ==
[2024-09-28 16:06] VITALS: BP 137/82; PULSE 72; RESP 16; TEMP 36.6; O2SAT 96
[2024-09-28 17:34] LABS: Alanine Aminotransferase 21 U/L (0-33); Albumin Level 3.9 g/dL (3.5-5.2); Alkaline Phosphatase 48 U/L (35-105); Anion Gap 15.3 (5-19); Aspartate Amino Transferase 22 U/L (0-32); Blood Urea Nitrogen 16 mg/dL (8-23); Calcium 9.2 mg/dL (8.5-10.5); Carbon Dioxide 26 mmol/L (22-29); Chloride 104 mmol/L (98-107); Globulin 2.4 g/dL (1.3-4.6); Glomerular Filtration Rate 62.3 mL/min (90-130); Glucose 72 mg/dL (65-115); Magnesium 1.8 mg/dL (1.7-2.3); Osmolality Calculated 292 mOsm/kg (285-295); Potassium 4.3 mmol/L (3.5-5.1); Sodium 141 mmol/L (136-145); Total Bilirubin 0.4 mg/dL (0.15-1.2); Total Protein 6.3 g/dL (6.6-8.7)
--- NOTE | 2024-09-28 17:49 | ED_ITS ---
HPI - General Adult 2 General: Chief complaint: General Medical Stated complaint: muscle spasms Time Seen by Provider: 09/28/24 15:53 Source: patient Mode of arrival: EMS Limitations: no limitations History of Present Illness: Patient is a 69-year-old female who presents to the ED today with seemingly voluntary full body convulsions. She states this started just prior to arrival [place] the [place]. She told triage that symptoms started after she smoked a big joint . While here, when being watched, she goes into full body intermittent convulsive like behaviors but when staff leaves the room she is witnessed to be asymptomatic. She will also stop temporarily when instructed. Onset (ago): hour(s) Relieving factors: none Exacerbating factors: none Associated symptoms: Deny chest pain, confusion, dyspnea, headache(s), malaise or rash Treatments prior to arrival: none Related Data Home Medications ?Medication ?Instructions ?Recorded ?Confirmed levothyroxine 88 mcg tablet 88 mcg PO DAILY 02/16/20 0 09/23/24 (Synthroid) albuterol sulfate 90 mcg/actuation 2 puff inhalation Q 6H PRN 04/06/20 09/23/24 aerosol inhaler (ProAir HFA) Shortness Of Breath pregabalin 100 mg capsule (Lyrica) 100 mg PO Q12H 07/2109/23/24 ibuprofen 400 mg tablet 400 mg PO TID PRN pain 10/0509/23/24 albuterol sulfate 2.5 mg/3 mL 2.5 mg inhalation Q6H DE N 05/10/21 09/23/24 (0.083 %) solution for nebulization Shortness Of Breat h duloxetine 30 mg capsule,delayed 30 mg PO DAILY 09/23/24 release memantine 10 mg tablet 10 mg PO DAILY 05/10/2108/14 tizanidine 2 mg tablet 2 mg PO TID 05/10/21 5 Previous Rx's ?Medication ?Instructions ?Recorded Aquatic therapy #1 ea 03/02/21 aspirin 81 mg tablet,delayed 81 mg PO DAILY #90 tabs 0 05/10/21 release clopidogrel 75 mg tablet 75 mg PO DAILY #90 tabs 03/24 05/15 simvastatin 40 mg tablet See Rx Instructions .Route 0 1/06/25 .COMPLEX #90 tabs Allergies Allergy/AdvReac Type Severity Reaction Status Date / Time No Known Allergies Allergy Verified 09/23/24 07:43 Review of Systems 2 Const: Denies: fever(s), chills, body aches, fatigue or malaise Card: Denies: chest pain Resp: Denies: dyspnea GI: Denies: abdominal pain Musc: Denies: neck pain, back pain, extremity pain or joint swelling Skin/Breast: Denies: rash Neuro: Denies: headache(s), numbness in extremities, weakness in extremities, sensory changes, lack of coordination, dizziness, vertigo, confusion, behavioral changes, Slurred speech present or difficulty communicating thoughts PFSH ED 2 PFSH: Medical History Tobacco abuse COPD (chronic obstructive pulmonary disease) History of acute inferior wall [place] Atherosclerosis of coronary artery Surgical History H/O right coronary artery stent placement Social History Smoking and tobacco/nicotine status: former use of tobacco/nicotine Quit status (tobacco/nicotine): considering quitting Alcohol intake: never Substance/Drug Use: never Physical Exam 2 Const: COMMON NORMALS: no acute distress, average body habitus, patient oriented x3, no limitations, healthy appearing, alert and well nourished G ENERAL APPEARANCE: cooperative ORIENTATION/CONSCIOUSNESS: Yes awake, Yes oriented to person, Yes oriented to place and Yes oriented to time OTHER: laying in bed with her sunglasses on-states she cannot remove them because my arms do not work intermittently goes into [id number] body twitching/convulsions; remains conscious and able to continue conversation HENMT: COMMON NORMALS: normocephalic and atraumatic HEAD & SCALP: normal to inspection, normocephalic and atraumatic FACE & SINUS: normal facial exam Resp: COMMON NORMALS: normal respiratory effort and clear to auscultation bilaterally AUSCULTATION: clear to auscultation bilaterally Cardio: COMMON NORMALS: regular rate and regular rhythm RATE: regular rate RHYTHM: regular rhythm Extremity: GENERAL: Yes normal exam except as noted Neuro: MARGI COMA SCALE: document GCS findings [place] coma scale eye opening: Spontaneous [place] coma scale verbal response: Orientated [place] coma scale motor response: Obey commands [place] coma scale total score: 15 COMMON NORMALS: patient oriented x3, moves all extremities, no focal motor deficits and no sensory deficits noted SENSORIUM/ORIENTATION: Yes alert, Yes oriented to person, Yes oriented to place and Yes oriented to time SPEECH: speech normal GAIT: Yes Unable to assess gait Skin: COMMON NORMALS: no rashes or lesions noted GENERAL SKIN EXAM: no rashes or lesions noted Course 2 Vital Signs: Vital signs: Vital Signs Temperature 97.9 F 09/28/24 16:06 Pulse Rate 72 09/28/24 16:06 Respiratory Rate 18 09/28/24 18:08 Blood Pressure 137/82 09/28/24 16:06 Pulse Oximetry 95 09/28/24 18:08 Oxygen Delivery Me thod Room Air 09/28/24 18:08 MDM - General Adult Medical Decision Making Patient's symptoms seemingly voluntary as she will stop when she is being unwitnessed and can also stop on command. She was ambulatory here to the bathroom without any difficulty or assistance. Her vital signs are stable. Blood work overall is unremarkable. Tox screen is positive for marijuana. Patient was given medications here and reportedly feels better and is resting comfortably. She will be allowed discharge with recommendations to follow-up with primary care. Medical Records I reviewed the patient's medical records. Lab Data I reviewed the patient's lab results. 09/28/24 16:52 09/28/24 16:52 Laboratory Results WBC 7.06 10^3/uL (3.29-11.43) 09/28/24 16:52 RBC 3.49 10^6/uL (3.85-5.65) L 09/28/24 16:52 Hgb 10.90 g/dL (11.27-16.99) L 09/28/24 16:52 Hct 34.0 % (36-47) L 09/28/24 16:52 MCV 97.4 fl (85-98) 09/28/24 16:52 MCH 31.2 pg (27-33) 09/28/24 16:52 MCHC 32.1 g/dL (30-55) 09/28/24 16:52 RDW 13.7 % (12.1-15.1) 09/28/24 16:52 Plt Count 220 10^3/cmm (157-399) 09/28/24 16:52 MPV 10.1 fL (7.4-10.4) 09/28/24 16:52 Neut % (Auto) 52.3 % 09/28/24 16:52 Lymph % (Auto) 29.0 % 09/28/24 16:52 [place] % (Auto) 8.6 % 09/28/24 16:52 Eos % (Auto) 8.4 % 09/28/24 16:52 Baso % (Auto) 1.4 % 09/28/24 16:52 Neut # (Auto) 3.69 10^3/uL (1.8-7.7) 09/28/24 16:52 Lymph # (Auto) 2.1 10^3/uL (0.8-4.8) 09/28/24 16:52 [place] # (Auto) 0.6 10^3/uL (0.2-0.9) 09/28/24 16:52 Eos # (Auto) 0.6 10^3/uL (0.0-0.8) 09/28/24 16:52 Baso # (Auto) 0.1 10^3/uL (0.0-0.1) 09/28/24 16:52 Nucleated RBC % (auto) 0 % 09/28/24 16:52 Nucleated RBCs # 0.0 /100WBC 09/28/24 16:52 Sodium 141 mmol/L (136-145) 09/28/24 16:52 Potassium 4.3 mmol/L (3.5-5.1) 09/28/24 16:52 Chloride 104 mmol/L (98-107) 09/28/24 16:52 Carbon Dioxide 26 mmol/L (22-29) 09/28/24 16:52 Anion Gap 15.3 (5-19) 09/28/24 16:52 BUN 16 mg/dL (8-23) 09/28/24 16:52 Creatinine 0.9 mg/dL (0.5-0.9) 09/28/24 16:52 GFR Calculation 62.3 mL/min (90-130) L 09/28/24 16:52 Glucose 72 mg/dL (65-115) 09/28/24 16:52 Calculated Osmolality 292 mOsm/kg (285-295) 09/28/24 16:52 Calcium 9.2 mg/dL (8.5-10.5) 09/28/24 16:52 Magnesium 1.8 mg/dL (1.7-2.3) 09/28/24 16:52 Total Bilirubin 0.4 mg/dL (0.15-1.2) 09/28/24 16:52 AST 22 U/L (0-32) 09/28/24 16:52 ALT 21 U/L (0-33) 09/28/24 16:52 Alkaline Phosphatase 48 U/L (35-105) 09/28/24 16:52 Total Protein 6.3 g/dL (6.6-8.7) L 09/28/24 16:52 Albumin 3.9 g/dL (3.5-5.2) 09/28/24 16:52 Globulin 2.4 g/dL (1.3-4.6) 09/28/24 16:52 TSH 1.59 uIU/mL (0.27-4.20) 09/28/24 16:52 Urine Opiates Screen Negative ng/mL (Negative) 09/28/24 18:25 Ur Barbiturates Screen Negative ng/mL (Negative) 09/28/24 18:25 Ur Phencyclidine Scrn Negative ng/mL (Negative) 09/28/24 18:25 Ur Amphetamines Screen Negative ng/mL (Negative) 09/28/24 18:25 U Benzodiazepines Scrn Negative ng/mL (Negative) 09/28/24 18:25 Urine Cocaine Screen Negative ng/mL (Negative) 09/28/24 18:25 U Marijuana (THC) Screen Positive ng/mL (Negative) H 09/28/24 18:25 No radiology studies performed this visit Discharge Plan Discharge Patient Disposition: Home Clinical Impression: Psychosomatic factor in physical condition Condition: Stable Prescriptions: No Action pregabalin [Lyrica] 100 mg capsule 100 mg PO Q12H (DME) Aquatic therapy See Rx Instructions .Route .MEDSUPPLY Qty: 1 0RF Rx Instructions: As directed. levothyroxine [Synthroid] 88 mcg tablet 88 mcg PO DAILY clopidogrel 75 mg tablet 75 mg PO DAILY Qty: 90 3RF simvastatin 40 mg tablet See Rx Instructions .ROUTE .COMPLEX Qty: 90 0RF Dose Instruction: TAKE 1 TABLET BY MOUTH EVERY EVENING Rx Instructions: TAKE 1 TABLET BY MOUTH EVERY EVENING albuterol sulfate [ProAir HFA] 90 mcg/actuation HFA aerosol inhaler 2 puff INHALATION Q6H PRN (Reason: Shortness Of Breath) tizanidine 2 mg tablet 2 mg PO TID albuterol sulfate 2.5 mg /3 mL (0.083 %) solution for nebulization 2.5 mg inhalation Q6H PRN (Reason: Shortness Of Breath) memantine 10 mg tablet 10 mg PO DAILY duloxetine 30 mg capsule,delayed release(DR/EC) 30 mg PO DAILY aspirin 81 mg Tablet,Delayed Release (Dr/Ec) 81 mg PO DAILY Qty: 90 4RF ibuprofen 400 mg Tablet 400 mg PO TID PRN (Reason: pain ) Discharge Orders: Discharge ED (Routine); Ordered 09/28/24 Ordered By: Linda Paige Referrals: Cheyanne Davis MD [Primary Care Provider, Family Practice] Activity Restrictions/Additional Instructions: Please follow-up with your primary care provider later this week for re- evaluation. 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
[2024-09-28 17:52] LABS: Basophils # 0.1 10^3/uL (0.0-0.1); Basophils % 1.4 %; Eosinophils # 0.6 10^3/uL (0.0-0.8); Eosinophils % 8.4 %; Lymphocytes # 2.1 10^3/uL (0.8-4.8); Mean Corpuscular HGB Conc 32.1 g/dL (30-55); Mean Corpuscular Hemoglobin 31.2 pg (27-33); Mean Corpuscular Volume 97.4 fl (85-98); Mean Platelet Volume 10.1 fL (7.4-10.4); Monocytes # 0.6 10^3/uL (0.2-0.9); Monocytes % 8.6 %; Neutrophils # 3.69 10^3/uL (1.8-7.7); Neutrophils % 52.3 %; Nucleated Red Blood Cells % 0 %; Platelet Count 220 10^3/cmm (157-399); Red Blood Count 3.49 10^6/uL (3.85-5.65); Red Cell Distribution Width 13.7 % (12.1-15.1); White Blood Count 7.06 10^3/uL (3.29-11.43)
[2024-09-28] MEDS: LORazepam 1 MG/0.5 ML injection IVP (18:06)
[2024-09-28] MEDS: haloperidol inj 5 mg/mL INJ 1 mL 2.5 MG IVP (18:06)
[2024-09-28 18:08] VITALS: RESP 18; O2SAT 95
[2024-09-28 18:55] LABS: Thyroid Stimulating Hormone 1.59 uIU/mL (0.27-4.20)
[2024-09-28 19:17] LABS: Amphetamines Screen Urine Negative (Negative); Barbiturates Screen Urine Negative (Negative); Benzodiazepines Screen Urine Negative (Negative); Cocaine Screen Urine Negative (Negative); Opiate Screen Urine Negative (Negative); PCP Screen Urine Negative (Negative); THC Screen Urine Positive (Negative)
[2024-09-28 19:26] VITALS: BP 141/73; PULSE 81; O2SAT 98
== END 2024-09-28 19:27 | disposition home or self-care (01) ==
PROVIDERS: Emergency Provider Physician Assistant; PCP Family Medicine
DX: F45.8 Other somatoform disorders (principal); J44.9 Chronic obstructive pulmonary disease, unspecified; I25.10 Atherosclerotic heart disease of native coronary artery without angina pectoris; I25.2 Old myocardial infarction; Z87.891 Personal history of nicotine dependence; Z79.899 Other long term (current) drug therapy; Z79.890 Hormone replacement therapy; Z95.5 Presence of coronary angioplasty implant and graft
CPT/HCPCS: 36415; 80053; 80306; 83735; 84443; 85025; 96374; 96375; 99284; J1630; J2060

== ENCOUNTER 2024-11-19 07:28 | Day surgery (SDC) | payer OTHER, MEDICAID, SELFPAY ==
[2024-11-19] VITALS (12 sets, daily range): BP systolic 141–163; BP diastolic 81–94; PULSE 56–68; RESP 10–26; TEMP 36.1–36.6; O2SAT 92–100; BMI 16.8
--- NOTE | 2024-11-19 08:17 | W.PM.OPSFHP ---
Same Day Surgery H&P Indication for Procedure/HPI DATE OF PROCEDURE: November 19, 2024 CHIEF COMPLAINT/INDICATIONFOR SURGICAL PROCEDURE: Left carpal tunnel syndrome, left cubital tunnel syndrome PREOP DIAGNOSIS: Left carpal tunnel syndrome, left cubital tunnel syndrome PLANNED PROCEDURE: Operation Date: 11/19/24 10:50 Proposed Procedures p LEFT Carpal Tunnel Release(Left) - Shawn Bosque, DO s LEFT Cubital Tunnel Release(Left) - Shawn Bosque, DO s POSSIBLE Ulnar Nerve Transposition(Left) - Shawn Bosque, DO Medications/Allergies* Home Medications ?Medication ?Instructions ?Recorded ?Confirmed ?Type levothyroxine 88 mcg tablet 88 mcg PO DAILY 02/16/20 11/18/24 History (Synthroid) albuterol sulfate 90 mcg/actuation 2 puff inhalation Q6H PRN 04/06/20 11/18/24 History aerosol inhaler (ProAir HFA) Shortness Of Breath pregabalin 100 mg capsule (Lyrica) 100 mg PO Q12H 08/04/20 11/18/24 History ibuprofen 400 mg tablet 400 mg PO TID PRN pain 10/05/20 11/18/24 History albuterol sulfate 2.5 mg/3 mL 2.5 mg inhalation Q6H PRN 05/10/21 11/18/24 History (0.083 %) solution for nebulization Shortness Of Breath duloxetine 30 mg capsule,delayed 30 mg PO DAILY 05/10/21 11/18/24 History release memantine 10 mg tablet 10 mg PO DAILY 05/10/21 11/18/24 History tizanidine 2 mg tablet 2 mg PO BID 05/10/21 11/18/24 History clopidogrel 75 mg tablet (Plavix) 75 mg PO DAILY 11/18/24 11/18/24 History simvastatin 40 mg tablet 40 mg PO DAILY 11/18/24 11/18/24 History Allergies/Adverse Reactions Allergy/AdvReac Type Severity Reaction Status Date / Time No Known Allergies Allergy Verified 11/18/24 08:49 Pertinent History/Comorbid Conditions* Medical History (Updated 10/06/24 @ 00:00 by KRISTA Jones) Tobacco abuse COPD (chronic obstructive pulmonary disease) History of acute inferior wall [place] Atherosclerosis of coronary artery Surgical History (Updated 12/05/22 @ 12:27 by Clovis Hernandez MD) H/O right coronary artery stent placement Social History Smoking and tobacco/nicotine status: former use of tobacco/nicotine Quit status (tobacco/nicotine): considering quitting Alcohol intake: never Substance/Drug Use: never Pertinent Exam Findings alert, oriented x 3, operative site marked and procedure specific exam findings Please refer to detail orthopedic examination on 09/22/2024 listed below: Left UE Exam: Positive Spurling's Mild pain with Cervical spine ROM ROM Actively 140 degrees, Passively 170 degrees TTP over AC joint, anterior, lateral and posterior shoulder TTP over upper trapezius Pain and weakness with Homar's Positive Hamblen's Positive Speed's Positive cross over arm Neer's test Mildly positive Tinel's over cubital tunnel Mildy positive Tinel's over carpal tunnel Intrinsic weakness and atrophy noted Thenar weakness and atrophy Recommendations Risks and benefits of procedure reviewed and Patient/family agree to proceed Surgery/Procedure today Other Plans: Plan to proceed to the OR today for left carpal tunnel release and left cubital tunnel release with possible nerve transposition. Patient understands the ins and outs procedure the risk benefits complication alternatives of surgery and through shared decision-making patient elects proceed with surgical intervention. All questions answered at this time. Coding Level of Care Code Acute Code for Jake Fwkt
[2024-11-19] MEDS: acetaminophen 1,000 MG/100 ML PIGGYBACK 400 MG IV (08:22)
--- NOTE | 2024-11-19 09:31 | ANES.PREANE2 ---
Pre-Anesthetic Assessment Height/Weight: Height 5 ft 5 in Weight 101 lb Temp Pulse Resp BP Pulse Ox O2 Del Method 97.6 F 60 18 141/84 96 Room Air 11/19/24 08:02 11/19/24 08:02 11/19/24 08:02 11/19/24 08:02 11/19/24 08:02 11/19/24 08:05 Preop Diagnosis: Left carpal tunnel syndrome, left cubital tunnel syndrome Operation Date: 11/19/24 10:50 Proposed Procedures p LEFT Carpal Tunnel Release(Left) - Shawn Calhoun, DO s LEFT Cubital Tunnel Release(Left) - Shawn Chaz, DO s POSSIBLE Ulnar Nerve Transposition(Left) - Shawn Calhoun, DO Was Beta Grace taken within 24 hours: N/A Was Clonidine taken within 24 hours: N/A Last intake: Intake Last Liquid Date 11/18/24 Last Liquid Time 20:00 Last Solid Date 11/18/24 Last Solid Time 23:30 Social No alcohol and No tobacco Exam alert, oriented x 3, clear to auscultation bilaterally and regular rate & rhythm Airway Submandibular: within normal limits Cervical ROM: within normal limits Mallampati: Class III Dentition: false Anesthetic Plan ASA status: 3 Anesthesia: General and Regional (specify below) Other: No prior issues with anesthesia NPO since yesterday evening History of hypothyroidism on Synthroid COPD, denies smoking Prior CT, s/p PCI. Chronic Plavix last taken 11/10/2024 S/p cervical spinal fusion Labs reviewed from 09/28/2024 and acceptable for procedure. Patient marijuana positive at that time Plan for general anesthesia with peripheral nerve block Medications/Allergies Home Medications ?Medication ?Instructions ?Recorded ?Confirmed ?Last Taken ?Type levothyroxine 88 mcg tablet 88 mcg PO DAILY 02/16/20 11/18/24 11/10/24 History (Synthroid) albuterol sulfate 90 mcg/actuation 2 puff inhalation Q6H PRN 04/06/20 11/18/24 11/17/24 History aerosol inhaler (ProAir HFA) Shortness Of Breath pregabalin 100 mg capsule (Lyrica) 100 mg PO Q12H 08/04/20 11/18/24 11/11/24 History ibuprofen 400 mg tablet 400 mg PO TID PRN pain 10/05/20 11/18/2425 History Aquatic therapy #1 ea 03/02/21 09/23/24 Unknown Rx albuterol sulfate 2.5 mg/3 mL 2.5 mg inhalation Q6H PRN 05/10/21 11/18/24 Unknown History (0.083 %) solution for nebulization Shortness Of Breath aspirin 81 mg tablet,delayed 81 mg PO DAILY #90 tabs 05/10/21 11/18/24 11/11/24 Rx release duloxetine 30 mg capsule,delayed 30 mg PO DAILY 05/10/21 11/18/24 11/11/24 History release memantine 10 mg tablet 10 mg PO DAILY 05/10/21 11/18/24 11/11/24 History tizanidine 2 mg tablet 2 mg PO BID 05/10/21 11/18/24 11/11/24 History clopidogrel 75 mg tablet (Plavix) 75 mg PO DAILY 11/18/24 11/18/24 11/10/24 History simvastatin 40 mg tablet 40 mg PO DAILY 11/18/24 11/18/24 11/11/24 History Allergies Allergy/AdvReac Type Severity Reaction Status Date / Time No Known Allergies Allergy Verified 11/18/24 08:49 Current Medications Generic Name Dose Route Start Last Admin Trade Name Freq PRN Reason Stop Dose Admin Sodium Chloride 1,000 mls @ 30 mls/hr 11/19/24 08:00 11/19/24 08:29 Sodium Chloride 0.9% IV 11/20/24 07:59 30 mls/hr .Q24H MACARENA Administration PFSH Anesthesia Medical History (Updated 10/06/24 @ 00:00 by KRISTA Jones) Tobacco abuse COPD (chronic obstructive pulmonary disease) History of acute inferior wall CT Atherosclerosis of coronary artery Surgical History H/O right coronary artery stent placement Social History Smoking and tobacco/nicotine status: former use of tobacco/nicotine Quit status (tobacco/nicotine): considering quitting Alcohol intake: never Substance/Drug Use: never
--- NOTE | 2024-11-19 10:29 | SUR.PREOP ---
10:15 SUPRACLAVICULAR NERVE BLOCK PERFORMED BY Dr MORALEZ USING 30ml OF 0.5% ROPIVACAINE WITH 4mg OF DECADRON. NSR ON MONITOR, AND O2 AT 2L/M. MEDICATED BY ANESTHESIA. PT TOLERATED PROCEDURE WELL.
[2024-11-19] MEDS: ceFAZolin 2,000 MG in sodium chloride 0.9% (plus) 50 ML 100 MG IV (10:46)
--- NOTE | 2024-11-19 11:45 | W.PM.BPON ---
Date of Procedure: [November 19, 2024] Surgeon: [Dr. Chaz DO] Health Unit Supervisor(s): [Celio Ware PA-C] Procedure(s) performed: [Left carpal tunnel release and left cubital tunnel release.] Findings of the procedure(s): [Left carpal tunnel syndrome and left cubital tunnel syndrome. No subluxation of ulnar nerve with range of motion elbow, so no transposition of ulnar nerve needed. Procedure went well and is planned.] Estimated blood loss: [10 mL] Specimen(s) removed: [N/A] Post-operative diagnosis: [Left carpal tunnel syndrome left cubital tunnel syndrome]
--- NOTE | 2024-11-19 11:46 | PM.PACU ---
PACU note Narrative: Patient is a 69-year-old female just underwent a left carpal tunnel release and left cubital tunnel release. Patient transferred to PACU in stable condition. Pain is well controlled. Dressing on hand is dry and in place. Patient's fingers are warm and well-perfused. normal cap refill under 2 seconds. Unable to perform any further assessment of motor or sensory due to residual block. Exam: awake Disposition: discharged
--- NOTE | 2024-11-19 12:28 | SUR.PHASEII ---
good cap refill of fingers of left hand.
--- NOTE | 2024-11-19 13:07 | PM.OP ---
Operative Report Date of procedure: November 19, 2024 Surgeon: Shawn Ware DO Arts Administrator Or Manager: Celio Ware PA-C: PA was necessary for assistance in this case with hand positioning to execute the procedure, retraction and protection of neurovascular structures as well as to assist with wound closure and dressing application. Procedure: Preoperative diagnosis: Left carpal tunnel syndrome Left cubital tunnel syndrome Postop Diagnosis: Same Procedure done: Left carpal tunnel release Left?cubital tunnel tunnel release (ulnar nerve decompression at elbow) Surgeon: Shawn Ware DO Estimated blood loss: 10 mL Tourniquet? 13 minutes IV fluids: 600 mL Complications: None Findings: See operative report narrative Condition: stable Disposition: same day Brief History: Patient's been seen and worked up in the outpatient setting and findings consistent with preoperative diagnosis.? Patient has Left carpal tunnel syndrome as well as Left?cubital tunnel syndrome which has been worked up in the outpatient setting has physical exam findings consistent with this as well as confirmatory nerve conduction/EMG nerve conduction study consistent with diagnosis.? Patient's failed conservative treatment.? As result through shared decision making agreed to proceed with? Left carpal tunnel and Left?cubital tunnel release with possible ulnar nerve transposition we talked about treatment options as far as nonoperative and operative intervention.? Understands risk benefits complication alternatives surgical nonsurgical treatment options.? Understanding his risks he agrees to proceed with surgical intervention. Understanding these risks he agrees to proceed with surgery.? Consent obtained in in the preoperative holding area. Procedure: Patient seen evaluate in the preoperative holding area.? Consent was reviewed and signed with patient.? Correct extremity marked.? Patient seen evaluated by anesthesia department once cleared for surgery was then taken back to the operative suite placed in supine position all bony prominences well-padded patient properly secured to bed.? Left upper extremity placed onto armboard.? Nonsterile tourniquet applied Left upper arm.? Patient then underwent anesthesia per the anesthesia department.? Patient's Left upper extremity was then prepped and draped in standard orthopedic fashion.? Final timeout performed.? Patient received appropriate preoperative antibiotics. Esmarch was used exsanguinate the Left upper extremity.? Tourniquet was insufflated to 250 mmHg. I started with the carpal tunnel release first.? I made a standard open carpal tunnel release starting with the distal most extent in the palm at the Dupont's cardinal line and the incision line was made in line with the fourth ray and ended just distal to the wrist crease.? Sharp scalpel incision was made through skin and subcutaneous tissue I then utilizing self retainer then began to dissect with dissection scissors split longitudinally the palmar fascia.? Next I then utilizing my laboratory chemical assistant Sharath retractors subsequently utilizing scalpel feathered through the palmaris brevis as well as through the transverse carpal ligament distally.? Once I encountered the floor of the transverse carpal ligament and entered into the carpal tunnel I then switched to dissection scissors.? Carefully released the distal extent of the transverse carpal ligament to the palmar fat.? Care was to protect the recurrent branch and not injured this during this part of the case.? Next I then placed a [place] underneath the transverse carpal ligament proximally to protect the nerve in the carpal tunnel contents.? And then I subsequently under loupe magnification utilize my dissection scissors to release the transverse carpal ligament into the antebrachial fascia under direct visualization with care to keep my scissors with a curved ulnarly away from the palmar cutaneous branch.? The transverse carpal was then completely decompressed proximally and a [place] was then placed both distally and proximally throughout the carpal tunnel and had complete decompression of the nerve.? The nerve did appear to have hourglass shape as it went through the carpal tunnel.? With significant irritation noted around the nerve.? No masses were noted within the contents of the carpal tunnel.? This completed the carpal tunnel release and then I subsequently irrigated the wound bed and placed a wet Ray-Marcia into the incision for later closure. Next marked out the landmarks of the Left elbow of the medial epicondyle and olecranon and made a curvilinear incision following the course of the ulnar nerve at the medial aspect of the elbow.? Sharp scalpel incision was made through skin and subcutaneous tissue.? Next I switched to Littler dissection scissors and spread in plane of the medial antebrachial cutaneous nerve branching which was protected throughout this part of the dissection.? Then I directly came down over the fascia and identified the 2 heads of the FCU fascia and split this Left in the middle and subsequently identified my ulnar nerve distally.? This was then completely released distally under direct visualization and loupe magnification.? Once the nerve was then identified I then subsequently tracked this proximally and released this through Baker's ligament as well as complete decompression of the nerve proximally all the way past the intermuscular septum.? The nerve was completely released and decompressed both proximally and distally.? Ulnar nerve neurolysis performed and completed both proximally and distally with dissection scissors.? I then took the elbow through range of motion and there was no instability or subluxating of the ulnar nerve.? This completed?cubital tunnel release.? ?Next the wound bed was thoroughly irrigated.? Tourniquet was deflated.? Hemostasis was satisfactory at the?cubital tunnel release surgery site. I then inspected the carpal tunnel incision and this was found to have satisfactory hemostasis and all this was maintained through bipolar electrocautery.? At this point time I sequentially closed?cubital tunnel site with 3-0 Vicryl suture in a running horizontal mattress nylon stitch.? ? The carpal tunnel release surgery was then closed in standard interrupted mattress fashion.? Dressing was Xeroform 4 x 4's ABD Curlex soft roll and an Milind wrap has a bulky soft dressing. Patient was then awakened from anesthesia and taken to PACU in stable condition. Disposition: Patient taken to PACU in stable condition recovering well.? Patient will receive appropriate discharge instructions as well as pain medication postoperatively.? We will follow-up with me in the office in 2 weeks.? Patient understands agrees with current plan.? All questions answered.? He understands if any questions or concerns and contact the office for follow-up appointment..
--- NOTE | 2024-11-19 13:10 | ANE.PACU2 ---
Inpatient post-anesthesia follow up: Airway intact: Yes Vital signs: Temperature 97.9 F Pulse Rate 68 Respiratory Rate 16 Blood Pressure 151/88 Pulse Oximetry 96 Oxygen Delivery Me thod Room Air Oxygen Flow Rate 2 Fraction of Inspir ed Oxygen Hydration adequate: Yes Nausea and vomiting: No Pain level: 1 Mental status: Baseline
== END 2024-11-19 13:10 | disposition home or self-care (01) ==
PROVIDERS: PCP Family Medicine; Visit Provider Student in an Organized Health Care Education/Training Program
PROC: (CPT 64721; principal; 2024-11-19 10:50)
PROC: (CPT 64718; 2024-11-19 10:50)
DX: G56.02 Carpal tunnel syndrome, left upper limb (principal); G56.22 Lesion of ulnar nerve, left upper limb; E03.9 Hypothyroidism, unspecified; J44.9 Chronic obstructive pulmonary disease, unspecified; I25.2 Old myocardial infarction; Z98.1 Arthrodesis status; Z79.82 Long term (current) use of aspirin; I25.10 Atherosclerotic heart disease of native coronary artery without angina pectoris; Z95.5 Presence of coronary angioplasty implant and graft; Z87.891 Personal history of nicotine dependence
CPT/HCPCS: 64718; 64721; J0131; J0690; J1100; J1885; J2405; J2704; J3010; J7030; J9999

== ENCOUNTER → 2024-12-18 09:23 | Outpatient (BNVA) | payer OTHER, MEDICAID, SELFPAY | PROVIDERS: PCP Family Medicine; Visit Provider Physician Assistant | DX: Z98.890 Other specified postprocedural states (principal) | CPT/HCPCS: 99024 ==

== ENCOUNTER → 2024-12-31 10:39 | Outpatient (BNVA) | payer OTHER, MEDICAID, SELFPAY | PROVIDERS: PCP Family Medicine; Visit Provider Orthopaedic Surgery | DX: M51.362 Other intervertebral disc degeneration, lumbar region with discogenic back pain and lower extremity pain (principal); M47.896 Other spondylosis, lumbar region | CPT/HCPCS: 72110; 99203 ==

== ENCOUNTER → 2025-01-01 09:14 | Outpatient (BNVA) | payer OTHER, MEDICAID, SELFPAY | PROVIDERS: PCP Family Medicine; Visit Provider Physician Assistant | DX: Z98.890 Other specified postprocedural states (principal); M19.012 Primary osteoarthritis, left shoulder | CPT/HCPCS: 99024 ==

== ENCOUNTER 2025-01-21 11:21 | Outpatient (CLI) | payer OTHER, MEDICAID, SELFPAY | END 2025-01-21 11:22 | disposition home or self-care (01) | LOC: SPT 11:22 | PROVIDERS: PCP Family Medicine; Visit Provider Podiatrist Foot & Ankle Surgery | DX: Z46.89 Encounter for fitting and adjustment of other specified devices (principal); S92.322D Displaced fracture of second metatarsal bone, left foot, subsequent encounter for fracture with routine healing; S92.352D Displaced fracture of fifth metatarsal bone, left foot, subsequent encounter for fracture with routine healing; X58.XXXD Exposure to other specified factors, subsequent encounter | CPT/HCPCS: 99204; 99213; L4361 ==

== ENCOUNTER → 2025-01-21 12:46 | Outpatient (BNVA) | payer OTHER, MEDICAID, SELFPAY | PROVIDERS: PCP Family Medicine; Visit Provider Orthopaedic Surgery | DX: S22.080A Wedge compression fracture of T11-T12 vertebra, initial encounter for closed fracture (principal); X58.XXXA Exposure to other specified factors, initial encounter | CPT/HCPCS: 72072 ==

== ENCOUNTER 2025-01-26 08:42 | Outpatient (CLI) | payer OTHER, MEDICAID, SELFPAY ==
--- NOTE | 2025-01-26 08:51 | CTR_ITS ---
PROCEDURE INFORMATION: Exam: CT Lumbar Spine Without Contrast Exam date and time: 01/26/2025 9:41 AM Age: 69 years old Clinical indication: Injury or trauma; Fall; Blunt trauma (contusions or hematomas); Injury date: 01/16/25; Prior surgery; Surgery date: 6+ months; Surgery type: Hernia, appy, gb; -01-16-25, low back pain; Additional info: ? Fracture of vertebra/fx dislocation of joint TECHNIQUE: Imaging protocol: Computed tomography of the lumbar spine without contrast. Radiation optimization: All CT scans at this facility use at least one of these dose optimization techniques: automated exposure control; mA and/or kV adjustment per patient size (includes targeted exams where dose is matched to clinical indication); or iterative reconstruction. COMPARISON: CT lumbar spine wo con* [id number] 01/16/2025 2:13 PM RADIATION DOSE METRICS: Total DLP (mGy-cm): 290.01 FINDINGS: Bones/joints: Moderate T12 compression fracture is again noted with greater loss of height centrally and anteriorly. Fracture involves the posterior cortex consistent with a burst fracture. No acute fracture seen in the lumbar spine. Minimal retrolisthesis of L1 on L2 with severe degenerative disc disease at L1-L2. Moderate degenerative disc disease at L2-L3 and L5-S1. Reactive endplate sclerosis at L1-L2. No severe spinal stenosis. No significant neural foraminal stenosis. Soft tissues: Unremarkable. CT/CT lumbar spine wo con* [id number] IMPRESSION: 1. Moderate T12 compression fracture or burst fracture with greater loss of height. 2. No acute lumbar spine fracture.
--- NOTE | 2025-01-26 13:00 | MR_ITS ---
WS: [id number] MRI LUMBAR SPINE NONCONTRAST HISTORY: possible fx COMPARISON: CT 01/16/2025 TECHNIQUE: Sagittal and axial multisequence imaging is submitted. Mild increase in lumbar lordosis. Retrolisthesis of L1 and L2 by up to 3 mm. Patient has a recently described acute T12 compression fracture. Marrow edema throughout the L1 and L2 vertebral bodies without significant loss of height. No marrow edema extending into the posterior elements. Conus terminates normally at L1-2 disc level. L1-L2: Diffuse annular disc bulging with osteophytic ridging mild facet arthritis. No significant stenosis. L2-L3: Diffuse osteophytic ridging with annular disc bulging and mild facet arthritis. Minimal foraminal narrowing. L3-L4: Diffuse disc bulging with facet and ligamentum flavum hypertrophy. Fluid in the facet joints. No significant stenosis. L4-L5: Ligamentum flavum and mild facet arthritis. Mild disc bulging causing very slight narrowing of the LEFT foramen. L5-S1: Mild bilateral facet arthritis. Annular disc bulging resulting in very minimal foraminal narrowing. MR/MR lumbar spine wo con* [id number] IMPRESSION: 1. Acute fractures within the L1 and L2 vertebral bodies without significant l oss of height. No extension of marrow edema into the pedicles. 2. Acute T12 compression fracture described on the MRI thoracic spine report f rom the same day. 3. No high-grade central or foraminal stenosis in the lumbar spine. 4. Mild degenerative facet joint arthritis and foraminal narrowing as describe d above.
--- NOTE | 2025-01-26 13:45 | MR_ITS ---
WS: [id number] MRI THORACIC SPINE without contrast HISTORY: possible fx COMPARISON: CT thoracic spine 01/16/2025 TECHNIQUE: Multiplanar sequences are performed in sagittal and axial planes. Prior anterior cervical fusion hardware. Increase in thoracic kyphosis centered in the mid to lower thoracic spine. Acute compression fracture at T12. Irregularity involving the superior vertebral body. 2 mm retropulsion of the superior endplate. There is a fluid cleft within the anterior vertebral body. Loss of height approximately 25%. There is a small amount of marrow edema extending into the pedicles. Additional acute compression fractures at L1 and L2 will be described on the MRI lumbar spine to follow. Chronic anterior wedging of the T9, T10 and T11. There is a very small amount of marrow edema in the anterior T9 vertebral body. Signal within the cord is normal. T1-2: Normal. T2-3: Normal. T3-4: Normal. T4-5: Normal. T5-6: Normal. T6-7: Normal. T7-8: Normal. T8-9: Mild bilateral foraminal stenosis with facet arthritis. T9-10: Moderate RIGHT and mild LEFT foraminal stenosis. T10-11: Mild bilateral foraminal stenosis and facet arthritis. T11-12: Retrolisthesis of T12 with mild encroachment upon the ventral thecal sac. No contact on the cord. Moderate foraminal stenosis. Ectatic thoracic aorta is visualized. MR/MR thoracic spin wo con* [id number] IMPRESSION: 1. Acute compression fracture at T12 with 2 mm retropulsion of the superior en dplate. Compression fracture estimated at 25% with marrow edema extending into the pedicles. 2. There is a very small amount of fluid in the anterior T9 vertebral body. Th is may represent an acute marrow edema superimposed on chronic anterior wedging . 3. Remote T10 and T11 anterior compression fractures. 4. Acute compression fractures at L1 and L2. Please review the MRI lumbar spin e report performed on the same day. 5. Moderate bilateral foraminal stenosis at T11-12.
[2025-01-26 17:19] LABS: Hematocrit 33.6 % (36-47); Hemoglobin 10.90 g/dL (11.27-16.99); Mean Corpuscular HGB Conc 32.4 g/dL (30-55); Mean Corpuscular Hemoglobin 30.0 pg (27-33); Mean Corpuscular Volume 92.6 fl (85-98); Nucleated Red Blood Cells % 0 %; Platelet Count 313 10^3/cmm (157-399); Red Blood Count 3.63 10^6/uL (3.85-5.65); White Blood Count 12.55 10^3/uL (3.29-11.43)
[2025-01-26 17:30] LABS: Glucose Urine UA Negative (Normal); Nitrate Urine Negative (Negative); Specific Gravity, Urine 1.026 (1.005-1.030)
[2025-01-26 18:16] LABS: Alanine Aminotransferase 13 U/L (0-33); Albumin Level 4.0 g/dL (3.5-5.2); Alkaline Phosphatase 68 U/L (35-105); Anion Gap 16.5 (5-19); Aspartate Amino Transferase 14 U/L (0-32); Blood Urea Nitrogen 27 mg/dL (8-23); Calcium 9.3 mg/dL (8.5-10.5); Carbon Dioxide 25 mmol/L (22-29); Chloride 105 mmol/L (98-107); Creatinine Clr Calc Pharmacy 41.4287; Globulin 2.8 g/dL (1.3-4.6); Glucose 86 mg/dL (65-115); Osmolality Calculated 298 mOsm/kg (285-295); Potassium 4.5 mmol/L (3.5-5.1); Sodium 142 mmol/L (136-145); Total Protein 6.8 g/dL (6.6-8.7)
[2025-01-26 18:48] LABS: Add Urine Microscopic? YES
== END 2025-01-26 08:43 | disposition home or self-care (01) ==
PROVIDERS: PCP Family Medicine; Visit Provider Orthopaedic Surgery
DX: Z01.818 Encounter for other preprocedural examination (principal); M47.816 Spondylosis without myelopathy or radiculopathy, lumbar region; S32.010A Wedge compression fracture of first lumbar vertebra, initial encounter for closed fracture; S22.080A Wedge compression fracture of T11-T12 vertebra, initial encounter for closed fracture; S32.020A Wedge compression fracture of second lumbar vertebra, initial encounter for closed fracture; X58.XXXA Exposure to other specified factors, initial encounter
CPT/HCPCS: 36415; 72131; 72146; 72148; 80053; 81001; 85025

== ENCOUNTER 2025-01-26 10:00 | Outpatient (CLI) | payer OTHER, MEDICAID, SELFPAY | END 2025-01-26 10:01 | LOC: RAD 01-29 07:28 | PROVIDERS: PCP Family Medicine; Visit Provider Orthopaedic Surgery | DX: Z01.818 Encounter for other preprocedural examination (principal); M47.816 Spondylosis without myelopathy or radiculopathy, lumbar region; S32.010A Wedge compression fracture of first lumbar vertebra, initial encounter for closed fracture; S22.080A Wedge compression fracture of T11-T12 vertebra, initial encounter for closed fracture; S32.020A Wedge compression fracture of second lumbar vertebra, initial encounter for closed fracture; X58.XXXA Exposure to other specified factors, initial encounter; Z09 Encounter for follow-up examination after completed treatment for conditions other than malignant neoplasm | CPT/HCPCS: 99213 ==

== ENCOUNTER 2025-02-05 06:38 | Day surgery (SDC) | payer OTHER, MEDICAID, SELFPAY ==
[2025-02-05] VITALS (13 sets, daily range): BP systolic 123–163; BP diastolic 72–110; PULSE 70–95; RESP 12–21; TEMP 36.3–36.6; O2SAT 87–100; BMI 18.3
--- NOTE | 2025-02-05 07:23 | P.ANESASSM_ITS ---
Pre-Anesthetic Assessment Height/Weight: Height 5 ft 5 in Weight 110 lb O2 Del Method Room Air 02/05/25 06:57 Preop Diagnosis: Compression fractures osteoporotic wedge traumatic T12, L1 and L2 Operation Date: 02/05/25 08:20 Proposed Procedures p Thoracic Kyphoplasty(Not Applicable) - Fabio Aguero DO s Lumbar Kyphoplasty(Not Applicable) - Fabio Aguero DO Was Beta Grace taken within 24 hours: N/A Was Clonidine taken within 24 hours: N/A Last intake: Intake Last Liquid Date 02/04/25 Last Liquid Time 17:00 Last Solid Date 02/04/25 Last Solid Time 17:00 Social No alcohol and No tobacco Exam alert, oriented x 3, clear to auscultation bilaterally and regular rate & rhythm Airway Submandibular: within normal limits Cervical ROM: within normal limits Mallampati: Class III Dentition: false Anesthetic Plan ASA status: 3 Anesthesia: General Other: No prior issues with anesthesia NPO since yesterday evening History of hypothyroidism on Synthroid COPD, denies smoking Prior [place], s/p PCI. Chronic Plavix last taken S/p cervical spinal fusion Labs reviewed from 01/26/2025 reviewed and acceptable for procedure. Plan for GETA Medications/Allergies Home Medications ?Medication ?Instructions ?Recorded ?Confirmed ?Last Taken ?Type levothyroxine 88 mcg tablet 88 mcg PO DAILY 02/16/20 1 02/04/25 History (Synthroid) pregabalin 100 mg capsule (Lyrica) 100 mg PO Q12H 07/2102/04/25 02/04/25 History ibuprofen 400 mg tablet 400 mg PO TID PRN pain 10/0502/04/25 11/11/24 History Aquatic therapy #1 ea 03/02/21 01/26/25 Unkn own Rx albuterol sulfate 2.5 mg/3 mL 2.5 mg inhalation Q6H [place] N 05/10/21 02/04/25 02/04/25 History (0.083 %) solution for nebulization Shortness Of Breat h aspirin 81 mg tablet,delayed 81 mg PO DAILY #90 tabs 0 05/10/21 02/04/25 02/01/25 Rx release duloxetine 30 mg capsule,delayed 30 mg PO DAILY 02/04/25 02/04/25 History release memantine 10 mg tablet 10 mg PO DAILY 05/10/2101/2002/04/25 History tizanidine 2 mg tablet 2 mg PO BID 05/10/21 5 02/04/25 History clopidogrel 75 mg tablet (Plavix) 75 mg PO DAILY 11/1802/04/25 02/01/25 History simvastatin 40 mg tablet 40 mg PO DAILY 11/18/2401/2002/04/25 History cam boot to left #1 ea 01/21/25 01/26/25 Unkn own Rx bupropion HCl 150 mg 24 hr tablet, 150 mg PO QAM 02/0402/04/25 02/04/25 History extended release lisinopril 10 mg tablet 10 mg PO BID 02/04/2502/04/25 History pantoprazole 40 mg tablet,delayed 40 mg PO DAILY 02/0402/04/25 02/04/25 History release Allergies Allergy/AdvReac Type Severity Reaction Status Date / Time No Known Allergies Allergy Verified 02/04/25 09:02 [facility] Anesthesia Medical History Tobacco abuse COPD (chronic obstructive pulmonary disease) History of acute inferior wall [place] Atherosclerosis of coronary artery Surgical History H/O right coronary artery stent placement Social History Smoking and tobacco/nicotine status: former use of tobacco/nicotine Quit status (tobacco/nicotine): considering quitting Alcohol intake: never Substance/Drug Use: never
--- NOTE | 2025-02-05 07:23 | ANES.PREANE2 ---
Pre-Anesthetic Assessment Height/Weight: Height 5 ft 5 in Weight 110 lb O2 Del Method Room Air 02/05/25 06:57 Preop Diagnosis: Compression fractures osteoporotic wedge traumatic T12, L1 and L2 Operation Date: 02/05/25 08:20 Proposed Procedures p Thoracic Kyphoplasty(Not Applicable) - Fabio Aguero DO s Lumbar Kyphoplasty(Not Applicable) - Fabio Aguero DO Was Beta Grace taken within 24 hours: N/A Was Clonidine taken within 24 hours: N/A Last intake: Intake Last Liquid Date 02/04/25 Last Liquid Time 17:00 Last Solid Date 02/04/25 Last Solid Time 17:00 Social No alcohol and No tobacco Exam alert, oriented x 3, clear to auscultation bilaterally and regular rate & rhythm Airway Submandibular: within normal limits Cervical ROM: within normal limits Mallampati: Class III Dentition: false Anesthetic Plan ASA status: 3 Anesthesia: General Other: No prior issues with anesthesia NPO since yesterday evening History of hypothyroidism on Synthroid COPD, denies smoking Prior [place], s/p PCI. Chronic Plavix last taken S/p cervical spinal fusion Labs reviewed from 01/26/2025 reviewed and acceptable for procedure. Plan for GETA Medications/Allergies Home Medications ?Medication ?Instructions ?Recorded ?Confirmed ?Last Taken ?Type levothyroxine 88 mcg tablet 88 mcg PO DAILY 02/16/20 02/04/25 02/04/25 History (Synthroid) pregabalin 100 mg capsule (Lyrica) 100 mg PO Q12H 08/04/20 02/04/25 02/04/25 History ibuprofen 400 mg tablet 400 mg PO TID PRN pain 10/05/20 02/04/25 11/11/24 History Aquatic therapy #1 ea 03/02/21 01/26/25 Unknown Rx albuterol sulfate 2.5 mg/3 mL 2.5 mg inhalation Q6H PRN 05/10/21 02/04/25 02/04/25 History (0.083 %) solution for nebulization Shortness Of Breath aspirin 81 mg tablet,delayed 81 mg PO DAILY #90 tabs 05/10/21 02/04/25 02/01/25 Rx release duloxetine 30 mg capsule,delayed 30 mg PO DAILY 05/10/21 02/04/25 02/04/25 History release memantine 10 mg tablet 10 mg PO DAILY 05/10/21 02/04/25 02/04/25 History tizanidine 2 mg tablet 2 mg PO BID 05/10/21 02/04/25 02/04/25 History clopidogrel 75 mg tablet (Plavix) 75 mg PO DAILY 11/18/24 02/04/25 02/01/25 History simvastatin 40 mg tablet 40 mg PO DAILY 11/18/24 02/04/25 02/04/25 History cam boot to left #1 ea 01/21/25 01/26/25 Unknown Rx bupropion HCl 150 mg 24 hr tablet, 150 mg PO QAM 02/04/25 02/04/25 02/04/25 History extended release lisinopril 10 mg tablet 10 mg PO BID 02/04/25 02/04/25 02/04/25 History pantoprazole 40 mg tablet,delayed 40 mg PO DAILY 02/04/25 02/04/25 02/04/25 History release Allergies Allergy/AdvReac Type Severity Reaction Status Date / Time No Known Allergies Allergy Verified 02/04/25 09:02 [facility] Anesthesia Medical History Tobacco abuse COPD (chronic obstructive pulmonary disease) History of acute inferior wall [place] Atherosclerosis of coronary artery Surgical History H/O right coronary artery stent placement Social History Smoking and tobacco/nicotine status: former use of tobacco/nicotine Quit status (tobacco/nicotine): considering quitting Alcohol intake: never Substance/Drug Use: never
--- NOTE | 2025-02-05 08:15 | W.PM.OPSUD ---
Surgery/Procedure H&P Update DATE OF PROCEDURE: February 05, 2025 DATE H&P PERFORMED: 01/26/25 H&P UPDATE INFORMATION: I have reviewed H&P completed within last 30 days, I have examined patient prior to procedure and No changes to prior documentation PREOP DIAGNOSIS: Compression fractures osteoporotic wedge traumatic T12, L1 and L2 PLANNED PROCEDURE: Operation Date: 02/05/25 08:20 Proposed Procedures p Thoracic Kyphoplasty(Not Applicable) - Fabio Aguero DO s Lumbar Kyphoplasty(Not Applicable) - Fabio Aguero DO
[2025-02-05] MEDS: ceFAZolin 2,000 mg SDV 2000 MG IVP (08:26)
[2025-02-05] MEDS: iohexol 300 mg/mL 50 mL Btl XX (09:16)
[2025-02-05] MEDS: lidocaine-epi 1% 20 mL INJ 10 ML INJECTION (09:18)
--- NOTE | 2025-02-05 09:38 | XR_ITS ---
WS: [id number] XR lumbar spine 2-3V* [id number] REASON FOR EXAM: OR PICS FINDINGS: Vertebroplasties at T12 and L1 and L2. XR/XR lumbar spine 2-3V* [id number] IMPRESSION: Vertebroplasties as above.
--- NOTE | 2025-02-05 09:45 | PM.OP ---
Operative Report Date of procedure: February 05, 2025 Pre-op diagnosis: 1. T12 osteoporotic wedge traumatic compression fracture 2. L1 osteoporotic wedge traumatic compression fracture 3. L2 osteoporotic wedge compression fracture Post-op diagnosis: same Procedure done: 1. T12 kyphoplasty 2. L1 kyphoplasty 3. L2 kyphoplasty Surgeon: Fabio Aguero DO Estimated blood loss (mL): 5 Procedure: 1. T12 kyphoplasty 2. L1 kyphoplasty 3. L2 kyphoplasty Patient brought to the operative suite after undergoing anesthesia patient was placed in the prone position. All areas of impingement were well-padded. Patient's prepped and draped normal sterile fashion. Biplanar fluoroscopy was brought in. Attention was brought to the T12 level first. The left pedicle was used skin screws made of the left pedicle the awl was inserted using biplanar fluoroscopy followed by the drill followed by the balloon. Next attention was brought to the L1 level. The right pedicle was used skin incision is made awl was inserted through the pedicle. The drill was inserted followed by the balloon. Next the L2 level was used and the left pedicle was used. The skin incision was made the awl was inserted followed by the drill followed by the balloon. Leximenth was then placed in all 3 levels. This was done under C-arm guidance. The attention was brought to the L2 level first followed by T12 followed by L1. Cement had good fill in all 3 vertebral bodies. AP lateral fluoroscopy confirmed that the cement was in good position in all 3 levels. Wounds were irrigated and closed with nylon suture. Sterile dressings were applied patient is transferred to the PACU in stable condition.
[2025-02-05] MEDS: fentaNYL 50 mcg/mL INJ 2mL IVP (10:03)
--- NOTE | 2025-02-05 10:35 | ANE.PACU2 ---
Inpatient post-anesthesia follow up: Airway intact: Yes Vital signs: Temperature 97.3 F Pulse Rate 70 Respiratory Rate 18 Blood Pressure 139/72 Pulse Oximetry 97 Oxygen Delivery Me thod Room Air Oxygen Flow Rate Fraction of Inspir ed Oxygen Hydration adequate: Yes Nausea and vomiting: No Pain level: 1
[2025-02-05] MEDS: HYDROcodone-acetaminophen 5-325 mg Tablet 1 TAB PO (10:39)
--- NOTE | 2025-02-05 11:48 | PC.NURSE ---
Pt met criteria for discharge. She did not have a ride scheduled or family to come pick her up. After calling the surgery. Made attempts to contact [facility] , [facility] and [facility], with out hours of waiting. Pt was able to find a friend to pick her up. The ride was coming from [place] which an 1 hr away. Pt had met criteria for discharge, verbal understanding not to drive, and do not walk without assistance. She was taken to the cafeteria via wheelchair provided a hamburger and ice water. Placed by the windows in [facility] to watch for her ride. Pt remained in the locked wheelchair. Asked Stephanie from the Volunteer Service to check on pt periodically. Informed Bobbi Arnett of the situation and she approved of for pt to sit in the Main Lobby while waiting for her ride.
== END 2025-02-05 11:30 | disposition home or self-care (01) ==
PROVIDERS: PCP Family Medicine; Visit Provider Orthopaedic Surgery
PROC: 0PS43ZZ Reposition Thoracic Vertebra, Percutaneous Approach (ICD-10-PCS; CPT 22513; principal; 2025-02-05 08:10)
PROC: 0QS03ZZ Reposition Lumbar Vertebra, Percutaneous Approach (ICD-10-PCS; CPT 22514; 2025-02-05 08:10)
DX: M48.54XA Collapsed vertebra, not elsewhere classified, thoracic region, initial encounter for fracture (principal); M48.56XA Collapsed vertebra, not elsewhere classified, lumbar region, initial encounter for fracture; E03.9 Hypothyroidism, unspecified; J44.9 Chronic obstructive pulmonary disease, unspecified; I25.2 Old myocardial infarction; Z79.82 Long term (current) use of aspirin; K21.9 Gastro-esophageal reflux disease without esophagitis; I25.10 Atherosclerotic heart disease of native coronary artery without angina pectoris; Z87.891 Personal history of nicotine dependence
CPT/HCPCS: 22513; 22515 ×2; 72100; 76000; J0131; J0330; J0690; J1100; J2371; J2405; J2704; J3010; J3490; J3535; J7030; J9999; Q9967

== ENCOUNTER → 2025-02-17 07:38 | Outpatient (BNVA) | payer OTHER, MEDICAID, SELFPAY | PROVIDERS: PCP Family Medicine; Visit Provider Podiatrist Foot & Ankle Surgery | DX: S92.355A Nondisplaced fracture of fifth metatarsal bone, left foot, initial encounter for closed fracture (principal); S92.325A Nondisplaced fracture of second metatarsal bone, left foot, initial encounter for closed fracture; W19.XXXA Unspecified fall, initial encounter | CPT/HCPCS: 73630; 99213 ==

== ENCOUNTER → 2025-02-23 13:50 | Outpatient (BNVA) | payer OTHER, MEDICAID, SELFPAY | PROVIDERS: PCP Family Medicine; Visit Provider Orthopaedic Surgery | DX: Z98.890 Other specified postprocedural states (principal); Z48.89 Encounter for other specified surgical aftercare | CPT/HCPCS: 99024 ==

== ENCOUNTER → 2025-03-03 08:02 | Outpatient (BNVA) | payer OTHER, MEDICAID, SELFPAY | PROVIDERS: PCP Family Medicine; Visit Provider Podiatrist Foot & Ankle Surgery | DX: S92.355D Nondisplaced fracture of fifth metatarsal bone, left foot, subsequent encounter for fracture with routine healing (principal); S92.325D Nondisplaced fracture of second metatarsal bone, left foot, subsequent encounter for fracture with routine healing; W19.XXXD Unspecified fall, subsequent encounter | CPT/HCPCS: 73630; 99213 ==

== ENCOUNTER 2025-03-22 05:00 | Outpatient (RCR) | payer OTHER, MEDICAID, SELFPAY | END 2025-04-21 23:59 | disposition home or self-care (01) | LOC: SPT 05:00 | PROVIDERS: PCP Family Medicine; Visit Provider Orthopaedic Surgery | DX: M54.50 Low back pain, unspecified (principal) | CPT/HCPCS: 97110; 97161 ==

== ENCOUNTER 2025-04-19 14:04 | Outpatient (CLI) | payer MEDICARE, MEDICAID, SELFPAY ==
--- NOTE | 2025-04-19 14:10 | CT_ITS ---
WS: [id number] LDCT LUNG CANCER SCREENING HISTORY: SCREENING TECHNIQUE: Axial imaging performed from the apices to 1 cm below the costophrenic angles. Coronal and sagittal reformats are submitted with axial MIP series. All CT scans at [facility] use at least one of these dose optimization techniques: automated exposure control; mA and/or kV adjustment per patient size (includes targeted exams where dose is matched to clinical indication); or iterative reconstruction. DLP: 44.31 mGy.cm DIvol: Mean CTDIvol: 0.70 (mGy) COMPARISON: None available. Diagnostic quality: Satisfactory Lungs: Hyperexpanded lungs from chronic centrilobular emphysema. Biapical pleural thickening and scarring and fibrosis. Bilateral small pleural tags throughout the lungs. 4 mm noncalcified nodule RIGHT lower lobe, image 212 series 5. 4 mm nodule LEFT upper lobe, image 54 series 5. Heart: Normal size heart with no pericardial effusion.. Other findings: Ectatic atherosclerotic thoracic aorta. No aneurysmal dilatation. Normal size pulmonary artery. No pathologic lymph nodes. Prior cholecystectomy. Low-attenuation mass superior RIGHT lobe of the liver measures 2.1 cm. No adrenal mass. Suprarenal aortic vascular calcifications. Numerous o steoporotic compression fractures in the lower thoracic spine. Vertebroplasties in several of the vertebral bodies near the thoracolumbar junction. CT/CT lung screening [id number] IMPRESSION: LUNG-RADS: 3S-Probably Benign with Significant Findings FOLLOW UP: 6 Month LDCT OTHER FINDINGS (S MODIFIER): Indeterminate low-attenuation mass RIGHT lobe of t he liver. Recommend follow-up ultrasound.
== END 2025-04-19 14:05 | disposition home or self-care (01) ==
LOC: RAD 14:05
PROVIDERS: PCP Family Medicine; Visit Provider Registered Nurse
DX: Z12.2 Encounter for screening for malignant neoplasm of respiratory organs (principal); Z87.891 Personal history of nicotine dependence; J43.2 Centrilobular emphysema; J98.4 Other disorders of lung; J92.9 Pleural plaque without asbestos; J84.10 Pulmonary fibrosis, unspecified; J94.8 Other specified pleural conditions; R91.8 Other nonspecific abnormal finding of lung field; I77.810 Thoracic aortic ectasia; Z90.49 Acquired absence of other specified parts of digestive tract; R93.2 Abnormal findings on diagnostic imaging of liver and biliary tract; I70.0 Atherosclerosis of aorta; Z98.890 Other specified postprocedural states; I70.8 Atherosclerosis of other arteries; M80.88XA Other osteoporosis with current pathological fracture, vertebra(e), initial encounter for fracture
CPT/HCPCS: 71271

== ENCOUNTER 2025-04-21 12:10 | Emergency (ER) | payer MEDICARE, MEDICAID, SELFPAY ==
--- OUTSIDE RECORDS SUMMARY | 2024-11-12 14:40 | XMS_ITS | Encounter Summary ---
Author Organization [facility] Address [address] [place] [address] Care Team Providers Care Risk And Insurance Manager Name Role Phone Lilly Davis MD Primary Care Provider [phone] Reason for Visit * Reason Comments Follow Up Encounter Details Date Type Department Care Team (Late st Contact Info) Description 11/12/2024 3:40 PM CDT Office Visit [facility] [place] [address] [phone] Lilly Davis MD [address] [address] Hypertension, unspecified type (Primary Dx); Encounter for colorectal cancer screening; Chronic obstructive pulmonary disease, unspecified COPD type (CMS/HCC); Insomnia, unspecified type Social History Tobacco Use Types Packs/Day Years Used Date Smoking Tobacco: Former Cigarettes Passive Smoke Exposure: Past Smokeless Tobacco: Never Alcohol Use Standard Drinks/Week Comments Not Currently 0 (1 standard drink = 0.6 oz pur e alcohol) Financial Resource Strain Answer Date R ecorded How hard is it for you to pa y for the very basics like food, housing, medical care, and heating? Somewhat hard 10/02/2021 Food Insecurity Answer Date Recorded In the past 12 months, have you worried that your food would run out before you had money to buy more? Often true 10/02/2021 In the past 12 months, did y ou run out of food and didn't have money to buy more? Often true 10/02/2021 Transportation Needs Answer Date Record ed In the past 12 months, has l ack of transportation kept you from medical appointments or from getting medications? No 10/02/2021 Lack of Transportation (Non-Medical) Not on file 10/02/2021 Food Insecurity Answer Date Recorded Do you find you are eating l ess than you should because you can t pay for food? No 03/19/2025 Transportation Needs Answer Date Record ed Have you gone without health care because you didn t have a way to get there? Or worry about transportation for future doctor visits, turkey picker medication, etc.? No 2024 Housing Stability Answer Date Recorded Do you worry you won t have a steady place to sleep or struggle to pay rent or mortgage? No 03/19/2025 Utility Needs Answer Date Recorded Do you have difficulty payin g for utility costs (electric, water or gas bills)? No 03/19/2025 Medication Needs Answer Date Recorded Have you skipped taking medi cation due to cost or worry you can t afford new medications? No 03/19/2025 Feeling Safe Answer Date Recorded Are you in a relationship wi th someone who hurts you emotionally and/or physically? No 03/19/2025 Comments No Sex and Gender Information Value Date Recorded Sex Assigned at Not on file Legal Sex Female 12:52 AM COMMERCIAL TECHNICIAN Gender Identity Not on file Sexual Orientation Not on file documented as of this encounter Last Filed Vital Signs Vital Sign Reading Time Taken Comments Blood Pressure 90/60 11/12/2024 3:15 PM CDT Pulse 70 11/12/2024 3:15 PM CDT Temperature 36.7 C (98 F) 11/12/2024 3:15 PM CDT Respiratory Rate 17 11/12/2024 3:15 PM CDT Oxygen Saturation 98% 11/12/2024 3:15 PM CDT Inhaled Oxygen Concentration - - Weight 47.3 kg (104 lb 3.2 oz) 11/12/2024 3:15 P M CDT Height 165.1 cm (5' 5 ) 11/12/2024 3:15 PM CDT Body Mass Index 17.34 11/12/2024 3:15 PM CDT documented in this encounter Functional Status * Activities of Daily Living Question Answer Date of Assessment Author Do you need assistance with eating No 2024 3:13 PM CDT Vidya Perez Do you need assistance with bathing No 11/12 3:13 PM CDT Vidya Perez Do you need assistance with dressing No 10/21 3:13 PM CDT Vidya Perez Do you need assistance with cooking No 11/12 3:13 PM CDT Vidya Perez Do you need assistance with shopping No 10/21 3:13 PM CDT Vidya Perez Do you need assistance getti ng in and out of a chair No 11/12/2024 3:13 PM CDT Vidya Perez Do you need assistance with toileting No 3:13 PM CDT Vidya Perez * Activities of Daily Living Question Answer Date of Assessment Author Do you need assistance with eating No 2024 3:13 PM CDT Vdiya Perez Do you need assistance with bathing No 11/12 3:13 PM CDT Vidya Perez Do you need assistance with dressing No 10/21 3:13 PM CDT Vidya Perez Do you need assistance with cooking No 11/12 3:13 PM CDT Vidya Perez Do you need assistance with shopping No 10/21 3:13 PM CDT Vidya Perez Do you need assistance getti ng in and out of a chair No 11/12/2024 3:13 PM CDT Vidya Perez Do you need assistance with toileting No 3:13 PM CDT Vidya Perez documented as of this encounter Progress Notes * Lilly Davis MD - 11/12/2024 4:14 PM CDT History of Present Illness The patient presents for evaluation of COPD, hypertension, and sleep issues. She has been managing COPD with nebulizer treatments and oxygen therapy, with no recent changes in her regimen. Approximately three months ago, she successfully quit smoking after a 60-year habit andhas also stopped drinking alcohol. These lifestyle changes have led to a significant improvement inher overall health. She reports feeling fantastic and much better than before. She is currently on trazodone for sleep, Cymbalta, and Wellbutrin. Despite these medications, she experiences difficulty falling asleep and maintaining sleep, often waking up every 2 hours. She believes this issue is stress-related and has been seeking spiritual guidance to cope with it. She reports feeling happier than ever before and is content with her current living situation. Her permastone applicator has discontinued an unspecified medication. She has not made any changes to her diet or protein intake. She is scheduled for arm surgery next week on . ADVANCE CARE PLANNING Advance Care Planning Primary Emergency Contact: VIANNEY LEMUS, Relation: Friend Is the person(s) listed above who you would want to be your trusted medical decision maker? Didn't discuss Have you discussed your healthcare wishes with them? N/A WHAT MATTERS: Health outcomes, goals and care preferences PROVIDER RECOMMENDATIONS Based on all this, I recommend we consider: no changes for approach to medical care Patient in agreement? Yes CODE STATUS Code Status: Not on file Active code status of FULL CODE is correct- no changes Alcohol: The patient has quit drinking alcohol. Tobacco: The patient has quit smoking cigarettes. Sleep: The patient experiences difficulty falling asleep and maintaining sleep, often waking up every 2 hours. Living Condition: The patient lives in an apartment at [facility]. Wt Readings from Last 3 Encounters: 11/12/24 47.3 kg (104 lb 3.2 oz) 08/11/24 47.6 kg (105 lb) 06/25/24 47.6 kg (105 lb) Lucy's most recent labs include the following: Lab Results Component Value Date CHOLTOT 137 05/03/2023 HDL 69 05/03/2023 LDLCALC 52 05/03/2023 TRIGLYCERIDE 77 05/03/2023 Lab Results Component Value Date/Time NA 139 08/11/2024 11:17 AM K 4.3 08/11/2024 11:17 AM CL 102 08/11/2024 11:17 AM CO2 30 08/11/2024 11:17 AM BUN 23 08/11/2024 11:17 AM CREAT 1.04 08/11/2024 11:17 AM GLUCOSE 85 08/11/2024 11:17 AM TOTALPROTEIN 7.0 08/11/2024 11:17 AM ALBUMIN 4.2 08/11/2024 11:17 AM BILITOTAL 0.5 08/11/2024 11:17 AM ALKPHOS 47 08/11/2024 11:17 AM AST 59 (H) 08/11/2024 11:17 AM ALT 66 (H) 08/11/2024 11:17 AM Lab Results Component Value Date/Time CREAT 1.04 08/11/2024 11:17 AM GFR 74 05/03/2023 09:01 AM Lab Results Component Value Date/Time WBC 8.6 08/11/2024 11:17 AM HGB 13.2 08/11/2024 11:17 AM HCT 40.1 08/11/2024 11:17 AM PLT 305 08/11/2024 11:17 AM MCV 96.2 08/11/2024 11:17 AM Lab Results Component Value Date/Time TSH 1.80 08/11/2024 11:17 AM No results found for: HGBA1C , [id number] Current Outpatient Medications Medication Sig Dispense Refill memantine (NAMENDA) 10 mg Tablet Take 1 tablet by mouth twice daily 200 Tablet 2 formoterol (Perforomist) 20 mcg/2 mL Solution for Nebulization USE 1 VIAL IN NEBULIZER TWICE DAILY - Morning And Evening (Use With Budesonide) 2 mL 11 budesonide (PULMICORT RESPULE) 0.5 mg/2 mL Suspension for Nebulization USE 1 VIAL IN NEBULIZER TWICE DAILY - Rinse Mouth After Use (Use With Formoterol) 3 mL 11 ipratropium bromide (ATROVENT) 0.02 % Solution USE 1 VIAL IN NEBULIZER 3 TIMES DAILY 3 mL 11 albuterol (PROVENTIL,VENTOLIN) 2.5 mg /3 mL (0.083 %) Solution for Nebulization USE 1 VIAL IN NEBULIZER DAILY - As Needed (For Rescue Only) 30 Each 11 simvastatin (ZOCOR) 40 mg tablet Take 1 Tablet (40 mg) by mouth daily with supper. 100 Tablet 2 buPROPion HCL (WELLBUTRIN SR) 200 mg Sustained Release 12 hour tablet Take 1 tablet by mouth once daily 100 Tablet 2 albuterol sulfate HFA 90 mcg/actuation aerosol inhaler INHALE 2 PUFFS BY MOUTH EVERY 4 HOURS NEEDED FOR SHORTNESS OF BREATH 9 Gram 5 pregabalin (LYRICA) 150 mg Capsule Take 1 Capsule (150 mg) by mouth every 12 hours. 60 Capsule 2 albuterol (PROVENTIL,VENTOLIN) 0.63 mg/3 mL Solution for Nebulization USE 1 VIAL IN NEBULIZER EVERY8 HOURS NEEDED FOR SHORTNESS OF BREATH. USE WITH IPRATROPIUM. 270 mL 2 traZODone (DESYREL) 50 mg tablet Take 1 Tablet (50 mg) by mouth daily at bedtime. 90 Tablet 1 pantoprazole (PROTONIX) 40 mg Tablet, Delayed Release (E.C.) Take 1 Tablet (40 mg) by mouth daily. 90 Tablet 1 metoprolol succinate (TOPROL XL) 25 mg Extended Release 24 hour tablet Take 0.5 Tablets (12.5 mg) by mouth daily. 50 Tablet 3 lisinopriL (PRINIVIL) 10 mg tablet Take 1 Tablet (10 mg) by mouth 2 times daily. 200 Tablet 3 levothyroxine 88 mcg tablet Take 1 Tablet (88 mcg) by mouth daily. 90 Tablet 0 ferrous sulfate 325 mg (65 mg iron) tablet Take 1 Tablet (325 mg) by mouth daily. 100 Tablet 3 DULoxetine (CYMBALTA) 60 mg Capsule, Delayed Release(E.C.) Take 1 Capsule (60 mg) by mouth 2 times daily. 180 Capsule 1 Breztri Aerosphere 160 mcg-9mcg-4.8mcg/actuation HFA aerosol inhaler Take 2 Puffs by inhalation 2 times daily. 10.7 Gram 1 aspirin (ECOTRIN EC) 81 mg Tablet, Delayed Release (E.C.) Take 1 Tablet (81 mg) by mouth daily. 100Tablet 3 nebulizer Length of need 99 months Nebulizer with compressor, Kit: Disposable Nebulizer Kit, 2 per month, filters , areosol mask: Yes.Name of Medication albuterol 1 Each 0 Nebulizer Accessories Kit Use as directed with nebulizer 2 Each 2 oxygen home delivery Home Oxygen Concentrator yes at 2 L/M Sleep, Delivery Device: Nasal Cannula Portability: no, 0 L/M Rest, 0 L/M Activity, May provide device best for patient needs(E system,home fill, conserving device) Length of Need: 99 months 1 Each 0 clopidogreL (PLAVIX) 75 mg Tablet Take 75 mg by mouth. cane Length of Need: 99 months. Weight: 57.2 kg (126 lb) (02/17/21 1303) Weight: Wt Readings from Last 1 Encounters: 02/17/21 : 57.2 kg (126 lb) Height: Ht Readings from Last 1 Encounters: 02/17/21 : 5' 5 (1.651 m) Type: single cane. If over 250 lb, needs heavy duty 1 Each 0 Nebulizer & Compressor For Neb Device Nebulizer treatment every 4 hours for SOB/cough 1 Each 0 walker with wheels and seat Face to Face completed within 6 months: yesLength of Need: 99 months 1 Each 0 ibuprofen (MOTRIN) 800 mg tablet Take 1 Tablet (800 mg) by mouth every 6 hours as needed for Pain, Mild. 40 Tablet 0 No current facility-administered medications for this visit. No Known Allergies Social History Socioeconomic History Marital status: Single Spouse name: Not on file Number of children: Not on file Years of education: Not on file Highest education level: Not on file Occupational History Not on file Tobacco Use Smoking status: Former Types: Cigarettes Passive exposure: Past Smokeless tobacco: Never Vaping Use Vaping status: Never Used Substance and Sexual Activity Alcohol use: Not Currently Drug use: Yes Frequency: 1.0 times per week Types: Marijuana Comment: daily Sexual activity: Not on file Other Topics Concern Not on file Social History Narrative Not on file Social Drivers of Health Food Insecurity: Food Insecurity Present (10/02/2021) Food Insecurity Worried About Running Out of Food in the Last Year: Often true Ran Out of Food in the Last Year: Often true Transportation Needs: Unknown (10/02/2021) Transportation Needs Lack of Transportation (Medical): No Lack of Transportation (Non-Medical): Not on file Feeling Safe: Not At Risk (03/05/2023) Feeling Safe Patient has indicated abuse: : No Housing Stability: Not on file Past Medical History: Diagnosis Date Anxiety Chronic back pain COPD (chronic obstructive pulmonary disease) (CMS/HCC) Coronary artery disease Dementia (CMS/HCC) Essential hypertension Fibromyalgia Hepatitis C History of rib fracture Hypothyroidism Review of Systems: As noted in HPI, otherwise negative OBJECTIVE: Vitals: 11/12/24 1515 BP: (!) 90/60 Pulse: 70 Resp: 17 Temp: 98 ??F (36.7 ??C) SpO2: 98% Constitutional: Alert,well appearing and in no distress. Head: Normocephalic. Eyes: EOM are normal. Pupils are equal and round. Cardiovascular: Normal rate, regular rhythm and normal heart sounds. Exam reveals no gallop and no friction rub. No murmur heard. Pulmonary/Chest: Effort normal and breath sounds normal. No respiratory distress. She has no wheezes. She has no rales. Abdominal: Soft. There is no tenderness. Musculoskeletal: No edema in the lower extremities bilaterally Skin: No rash noted. ASSESSMENT/PLAN: ICD-10-CM ICD-9-CM 1. Hypertension, unspecified type I10 401.9 MICROALBUMIN/CREATININE RATIO, RANDOM UR 2. Encounter for colorectal cancer screening Z12.11 V76.51 COLON CANCER SCREEN, STOOL DNA Z12.12 V76.41 COLON CANCER SCREEN, STOOL DNA 3. Chronic obstructive pulmonary disease, unspecified COPD type ([facility]) J44.9 496 4. Insomnia, unspecified type G47.00 780.52 Orders Placed This Encounter Colon Cancer Screen, Stool DNA (COLOGUARD) ALBUMIN/CREATININE RATIO, RANDOM UR (AKA MICROALBUMIN/CREATININE RATIO, RANDOM UR) Assessment & Plan 1. Chronic Obstructive Pulmonary Disease (COPD). - Continues to use albuterol nebulizer and inhaler. - Has quit smoking, which is a significant positive change. - No changes in nebulizer treatments and oxygen use. - Encouraged to continue current treatment regimen and maintain smoke-free status. 2. Hypertension. - General Store Manager has discontinued an unspecified medication. - Advised to monitor blood pressure regularly. - No significant changes in blood pressure noted. - Recommended to report any significant changes. 3. Insomnia. - Currently taking trazodone for sleep. - Reports difficulty falling and staying asleep, waking up every 2 hours. - Stress management techniques discussed; encouraged to continue spiritual practices. - Advised to consider joining a community Bible study or Celebrate Recovery group for additional support. 4. Low Body Mass Index (BMI). - BMI is 17.3, indicating a need for weight gain. - Advised to increase protein intake through protein powder supplements, which can be mixed into smoothies with spinach, banana, and milk. - Encouraged to include more animal proteins like chicken, fish, and beef in diet. - Increasing protein intake will help improve weight, energy levels, and overall health. This note was automatically generated by a [employer] AI technology ([employer]), reviewed, edited, and finalized by Lilly Davis MD. The author of this note, patient (or authorized telephone sales representative), and all other persons present consent to the audio recording of this visit for charting documentation purposes. ERCIAL TECHNICIAN * Lilly Davis MD - 11/12/2024 3:12 PM CDT Current Medications Reviewed and Reconciled ??? memantine Take 1 tablet by mouth twice daily ??? Perforomist USE 1 VIAL IN NEBULIZER TWICE DAILY - Morning And Evening (Use With Budesonide) ??? budesonide USE 1 VIAL IN NEBULIZER TWICE DAILY - Rinse Mouth After Use (Use With Formoterol) ??? ipratropium bromide USE 1 VIAL IN NEBULIZER 3 TIMES DAILY ??? albuterol USE 1 VIAL IN NEBULIZER DAILY - As Needed (For Rescue Only) ??? simvastatin Take 1 Tablet (40 mg) by mouth daily with supper. ??? buPROPion HCL Take 1 tablet by mouth once daily ??? albuterol sulfate INHALE 2 PUFFS BY MOUTH EVERY 4 HOURS NEEDED FOR SHORTNESS OF BREATH ??? pregabalin Take 1 Capsule (150 mg) by mouth every 12 hours. ??? albuterol USE 1 VIAL IN NEBULIZER EVERY 8 HOURS NEEDED FOR SHORTNESS OF BREATH. USE WITH IPRATROPIUM. ??? traZODone Take 1 Tablet (50 mg) by mouth daily at bedtime. ??? pantoprazole Take 1 Tablet (40 mg) by mouth daily. ??? metoprolol succinate Take 0.5 Tablets (12.5 mg) by mouth daily. ??? lisinopriL Take 1 Tablet (10 mg) by mouth 2 times daily. ??? levothyroxine Take 1 Tablet (88 mcg) by mouth daily. ??? ferrous sulfate Take 1 Tablet (325 mg) by mouth daily. ??? DULoxetine Take 1 Capsule (60 mg) by mouth 2 times daily. ??? Breztri Aerosphere Take 2 Puffs by inhalation 2 times daily. ??? aspirin Take 1 Tablet (81 mg) by mouth daily. ??? nebulizer Length of need 99 months Nebulizer with compressor, Kit: Disposable Nebulizer Kit, 2 per month, filters , areosol mask: Yes.Name of Medication albuterol ??? Nebulizer Accessories Use as directed with nebulizer ??? oxygen home delivery Home Oxygen Concentrator yes at 2 L/M Sleep, Delivery Device: Nasal Cannula Portability: no, 0 L/M Rest, 0 L/M Activity, May provide device best for patient needs(E system,home fill, conserving device) Length of Need: 99 months ??? clopidogreL Take 75 mg by mouth. ??? cane Length of Need: 99 months. Weight: 57.2 kg (126 lb) (02/17/21 1303) Weight: Wt Readings from Last 1 Encounters: 02/17/21 : 57.2 kg (126 lb) Height: Ht Readings from Last 1 Encounters: 02/17/21 : 5' 5 (1.651 m) Type: single cane. If over 250 lb, needs heavy duty Nebulizer & Compressor For Neb Nebulizer treatment every 4 hours for SOB/cough ??? walker with wheels and seat Face to Face completed within 6 months: yesLength of Need: 99 months ??? ibuprofen Take 1 Tablet (800 mg) by mouth every 6 hours as needed for Pain, Mild. documented in this encounter Plan of Treatment Upcoming Encounters Date Type Department Care Team (Late st Contact Info) Description 05/07/2025 8:20 AM COMMERCIAL TECHNICIAN Office Visit [facility] [address] [phone] Zenaida Webster FNP [address] [phone] 05/11/2025 10:00 AM COMMERCIAL TECHNICIAN Appointment [facility] [address] [phone] Zenaida Webster FNP [address] [phone] 05/11/2025 11:00 AM COMMERCIAL TECHNICIAN Appointment [facility] [place] [address] [place] [address] Zenaida Webster FNP [address] [place] [address] 05/24/2025 1:20 PM COMMERCIAL TECHNICIAN Office Visit [facility] [place] [address] [place] [address] Lilly Davis MD [address] [place] [address] 07/15/2025 3:00 PM CDT Appointment [facility] [address] [place] [address] Onur Menendez MD [address] [place] [address] 08/24/2025 2:30 PM CDT Telemed [facility] [place] [address] [place] [address] Muna Haile NP [address] [place] [address] Scheduled Orders Name Type Priority Associated Diagnoses Orde r Schedule COLON CANCER SCREEN, STOOL DNA Lab Routine Encounter for colorectal cancer screening Expected: 11/12/2024, Expires: 01/07/2025 MICROALBUMIN/CREATININ E RATIO, RANDOM UR Lab Routine Hypertension, unspecified type Expected: 11/12/2024, Expires: 11/12/2025 documented as of this encounter Visit Diagnoses Diagnosis Hypertension, unspecified type- Primary Encounter for colorectal cancer screening Special screening for malignant neoplasms, colon Chronic obstructive pulmonary disease, unspecified COPD type (CMS/HCC) Insomnia, unspecified type documented in this encounter Care Teams Risk And Insurance Manager Relationship Specialty Start Date End Date Lilly Davis MD [address] [phone] PCP - General Family Practice 10/02/21 documented as of this encounter
--- OUTSIDE RECORDS SUMMARY | 2025-04-20 15:22 | XMS_ITS | Encounter Summary ---
Author Organization [employer] Address [address] [place] [address] Care Team Providers Care Rn Urology Name Role Phone Lilly Davis MD Primary Care Provider [phone] Reason for Referral * Radiology Services (Routine) - Closed Specialty Diagnoses / Procedures Referred By Tanika ellis Referred To Contact Radiology Diagnoses Pain in both lower extremities Procedures US DUPLEX ARTERIAL LEGS BILATERAL Zenaida Webstre FNP [address] [address] Phone: tel: fax: [facility] Scint-X [place] [address] [address] Phone: tel: fax: Referral ID Status Reason Start Date Expiration Date V isits Requested Visits Authorized [id number] Closed [facility] View CTS to Schedule 03/31/2025 05/01/2026 1 1 LASER OPERATOR Reason for Visit * Radiology Services (Routine) - Closed Specialty Diagnoses / Procedures Referred By Tanika ellis Referred To Contact Radiology Diagnoses Pain in both lower extremities Procedures US DUPLEX ARTERIAL LEGS BILATERAL Zenaida Webster FNP [address] [address] Phone: tel: fax: [facility] Ultrasound [place] [address] [place] [address] Phone: tel: fax: Referral ID Status Reason Start Date Expiration Date V isits Requested Visits Authorized [id number] Closed KSN View CTS to Schedule 03/31/2025 05/01/2026 1 1 Encounter Details Date Type Department Care Team (Latest Contact Info) Description 04/20/2025 3:22 PM TUBE LASER OPERATOR - 04/20/2025 11:59 PM TUBE LASER OPERATOR Hospital Encounter [facility] Ultrasound [place] [address] [facility] [address] [place] [phone] Zenaida Webster, SOA INTEGRATION DEVELOPER [address] [place] [phone] Arrived Discharge Disposition: Home or Self Care Social History Tobacco Use Types Packs/Day Years Used Date Smoking Tobacco: Former Cigarettes 1 61 S tarted: 04/22/1964 Passive Smoke Exposure: Past Smokeless Tobacco: Never [...] worry about transportation for future doctor visits, picker operator medication, etc.? No 2024 Housing Stability Answer [...] on file Legal Sex Female 12:52 AM TUBE LASER OPERATOR Gender Identity Not on file Sexual Orientation Not on file documented as of this encounter Functional Status * Adult Acuity Scoring Question Answer Date of Assessment Author Readmission Risk Score 6 04/21/2025 12:13 A M TUBE LASER OPERATOR Batch User, [facility] Admit Percussion Instrument Repairer [id number] Score (Used for patients with atrial fibrillation) 3 04/21/2025 12:13 AM TUBE LASER OPERATOR Batch User, [facility] Admit Percussion Instrument Repairer HAS-BLED Score (Used for patients with atrial fibrillation) 3 04/21/2025 12:13 AM TUBE LASER OPERATOR Batch User, [facility] Admit Percussion Instrument Repairer documented as of this encounter Medications at Time of Discharge traMADol (ULTRAM) 50 mg tabletIndications: Pain in both lower extremities,DDD (degenerative disc disease), thoracolumbar Take 1 Tablet (50 mg) by mouth every 6 hours as needed for Pain. 15 Tablet 04/12/2025 albuterol (PROVENTIL,VENTOLI N) 0.63 mg/3 mL Solution for Nebulization USE 1 VIAL IN NEBULIZER EVERY 8 HOURS NEEDED FOR SHORTNESS OF BREATH. USE WITH IPRATROPIUM. 270 mL 3 03/30/2025 DULoxetine (CYMBALTA) 60 mg Capsule, Delayed Release(E.C.)Indic ations:Mood disorder,Recurrent major depressive disorder, in full remission Take 1 capsule by mouth twice daily 180 Capsule 1 03/30/2025 albuterol sulfate 90 mcg/Actuation inhaler INHALE 2 PUFFS BY MOUTH EVERY 4 HOURS NEEDED FOR SHORTNESS OF BREATH 9 Gram 2 03/08/2025 traZODone (DESYREL) 50 mg tabletIndications: Insomnia, unspecified type TAKE 1 TABLET BY MOUTH ONCE DAILY AT BEDTIME 100 Tablet 03/08/2025 ondansetron (ZOFRAN ODT) 4 mg Tablet, Rapid Dissolve TAKE ONE TABLET EVERY 8 HOURS NEEDED FOR NAUSEA AND VOMITING FOR THREE DAYS 11/19/2024 predniSONE (DELTASONE) 20 mg tablet TAKE 3 TABLETS BY MOUTH FOR 3 DAYS,THEN TAKE 2 TABS FOR 2 DAYS, THEN 1 TAB FOR 2 DAYS 01/21/2025 pregabalin (LYRICA) 150 mg CapsuleIndications :Fibromyalgia TAKE 1 CAPSULE BY MOUTH EVERY 12 HOURS 60 Capsule 4 12/30/2024 levothyroxine 88 mcg tabletIndications: Hypothyroidism due to acquired atrophy of thyroid Take 1 tablet by mouth once daily 100 Tablet 1 11/24/2024 memantine (NAMENDA) 10 mg TabletIndications: Dementia without behavioral disturbance (CMS/HCC),Mood disorder,Moderate cognitive impairment Take 1 tablet by mouth twice daily 200 Tablet 2 10/28/2024 formoterol (Perforomist) 20 mcg/2 mL Solution for Nebulization USE 1 VIAL IN NEBULIZER TWICE DAILY - Morning And Evening (Use With Budesonide) 2 mL 11 10/16/2024 albuterol (PROVENTIL,VENTOLI N) 2.5 mg /3 mL (0.083 %) Solution for Nebulization USE 1 VIAL IN NEBULIZER DAILY - As Needed (For Rescue Only) 30 Each 11 10/16/2024 simvastatin (ZOCOR) 40 mg tablet Take 1 Tablet (40 mg) by mouth daily with supper. 100 Tablet 2 10/13/2024 buPROPion HCL (WELLBUTRIN SR) 200 mg Sustained Release 12 hour tabletIndications: Moderate episode of recurrent major depressive disorder (CMS/HCC) Take 1 tablet by mouth once daily 100 Tablet 2 10/05/2024 pantoprazole (PROTONIX) 40 mg Tablet, Delayed Release (E.C.) Take 1 Tablet (40 mg) by mouth daily. 90 Tablet 1 05/05/2024 metoprolol succinate (TOPROL XL) 25 mg Extended Release 24 hour tablet Take 0.5 Tablets (12.5 mg) by mouth daily. 50 Tablet 3 05/05/2024 lisinopriL (PRINIVIL) 10 mg tabletIndications: Primary hypertension Take 1 Tablet (10 mg) by mouth 2 times daily. 200 Tablet 3 05/05/2024 ferrous sulfate 325 mg (65 mg iron) tabletIndications: Iron deficiency anemia secondary to inadequate dietary iron intake Take 1 Tablet (325 mg) by mouth daily. 100 Tablet 3 05/05/2024 Breztri Aerosphere 160 mcg-9mcg-4.8mcg/ac tuation HFA aerosol inhaler Take 2 Puffs by inhalation 2 times daily. 10.7 Gram 1 05/05/2024 aspirin (ECOTRIN EC) 81 mg Tablet, Delayed Release (E.C.) Take 1 Tablet (81 mg) by mouth daily. 100 Tablet 3 05/05/2024 nebulizer Length of need 99 months Nebulizer with compressor, Kit: Disposable Nebulizer Kit, 2 per month, filters , areosol mask: Yes. Name of Medication albuterol 1 Each 11/08/2022 Nebulizer Accessories Kit Use as directed with nebulizer 2 Each 2 11/08/2022 oxygen home delivery Home Oxygen Concentrator yes at 2 L/M Sleep, Delivery Device: Nasal Cannula Portability: no, 0 L/M Rest, 0 L/M Activity, May provide device best for patient needs(E system,home fill, conserving device) Length of Need: 99 months 1 Each 09/06/2022 clopidogreL (PLAVIX) 75 mg Tablet Take 75 mg by mouth. Nebulizer & Compressor For Neb DeviceIndications: COPD with exacerbation ([facility]) Nebulizer treatment every 4 hours for SOB/cough 1 Each 0 09/06/2020 walker with wheels and seatIndications:Ge neralized muscle weakness,Chronic low back pain with bilateral sciatica, unspecified back pain laterality,DDD (degenerative disc disease), lumbar Face to Face completed within 6 months: yesLength of Need: 99 months 1 Each 0 07/25/2020 documented as of this encounter Plan of Treatment Upcoming Encounters Date Type Department Care Team (Late st Contact Info) Description 05/07/2025 8:20 AM TUBE LASER OPERATOR Office Visit [facility] [address] [address] Zenaida Webster, [facility] [address] [address] 05/11/2025 10:00 AM TUBE LASER OPERATOR Appointment [facility] maging Services [place] [address] [facility] [address] [place] [address] Zenaida Webster, [facility] [address] [place] [address] 05/11/2025 11:00 AM TUBE LASER OPERATOR Appointment [facility] Ultrasound [place] [address] [facility] [address] [place] [address] Zenaida Webster, [facility] [address] [place] [address] 05/24/2025 1:20 PM TUBE LASER OPERATOR Office Visit [facility] Family Medicine [place] [address] [place] [address] Lilly Davis MD [address] [place] [address] 07/15/2025 3:00 PM CDT Appointment [facility] Neurology [facility] [address] [place] [address] Onur Menendez MD [address] [place] [phone] 08/24/2025 2:30 PM CDT Telemed [facility] Telemedicine - [place] [address] [place] [address] Muna Haile NP [address] [place] [address] documented as of this encounter Procedures Procedure Name Priority Date/Time Associated Diagnosis Comments US DUPLEX ARTERIAL LEGS BILATERAL Routine 04/20/2025 4:38 PM TUBE LASER OPERATOR Pain in both lower extremities documented in this encounter Results * US DUPLEX ARTERIAL LEGS BILATERAL (04/20/2025 4:38 PM TUBE LASER OPERATOR) Anatomical Region Laterality Modality Lower Extremity Ultrasound 04/20/2025 3:42 PM TUBE LASER OPERATOR Narrative 04/21/2025 12:17 PM TUBE LASER OPERATOR [facility] Radiology Services - Noninvasive Vascular [address] [facility] [address] [place] [address] Noninvasive Vascular Lab Arterial Exam Complete Lower Extremity Duplex Patient: Lucy Dotson Study ID: [id number] Gender: F : 1955 Age: 69 Room: Height: 157.5cm Weight: 47.2kg BSA: 1.43m^2 Pt status: Outpatient Study Date: 04/20/2025 Study Time: 03:42:27 PM BSA: 1.43m^2 Ordering: Zenaida Webster Interpreting:Tone Garcia Welder Plasma Arc: Erika Fernandez Indications: CLAUDICATION. History: Bilateral calf pain, with minimal activity. Claudication. Risk factors: Former smoker - years since quittinyr. Packs per day/years: -2/60. Coronary artery disease. Summary Impression: 1. No significant peripheral arterial disease is identified. 2. No evidence of arterial insufficiency, involving the right lower extremity. 3. No evidence of arterial insufficiency, involving the left lower extremity. Study data: Bilateral lower extremity arterial duplex. Duplex scan and ankle-brachial index. Height: 157.5cm. Height: 62in. Weight: 47.2kg. Weight: 104.1lb. BMI: 19kg/m^2. BSA: 1.43m^2. Location: Vascular laboratory. Patient status: Outpatient. Study status: Routine. Procedure: A vascular evaluation was performed with the patient in the supine position. Imaged vessel(s): the right common femoral, right deep femoral, right femoral, right popliteal, right anterior tibial, right posterior tibial, right dorsal pedal, left common femoral, left deep femoral, left femoral, left popliteal, left anterior tibial, left posterior tibial, and left dorsal pedal arteries. Presentation case quality. Arterial flow: - Right common femoral: Right common femoral 1.16m/sec - Right deep femoral: Right deep femoral 0.86m/sec - Right femoral proximal: Right femoral proximal 0.45m/sec - Right femoral mid: Right femoral mid 0.79m/sec - Right femoral distal: Right femoral distal 0.55m/sec - Right popliteal: Right popliteal 0.44m/sec - Right posterior tibial: Right posterior tibial 0.6m/sec - Right peroneal: Right peroneal 0.53m/sec - Right anterior tibial: Right anterior tibial 0.49m/sec - Right dorsal pedal: Right dorsal pedal 0.43m/sec - Left common femoral: Left common femoral 0.88m/sec - Left deep femoral: Left deep femoral 0.67m/sec - Left femoral proximal: Left femoral proximal 0.74m/sec - Left femoral mid: Left femoral mid 0.82m/sec - Left femoral distal: Left femoral distal 0.57m/sec - Left popliteal: Left popliteal 0.46m/sec - Left posterior tibial: Left posterior tibial 0.56m/sec - Left peroneal: Left peroneal 0.43m/sec - Left anterior tibial: Left anterior tibial 0.28m/sec - Left dorsal pedal: Left dorsal pedal 0.28m/sec Ankle brachial indices Baseline Baseline Rt PT: 135mm Hg Rt DP: 122mm Hg Rt brachial: 120mm Hg Rt PT: 1.13 Rt DP: 1.02 Lt PT: 120mm Hg Lt DP: 110mm Hg Lt Brachial: 116mm Hg Lt PT: 1.00 Lt DP: 0.92 Prepared and Electronically Authenticated Tone Garcia Confirmed 04/21/2025 12:17 Procedure Note Tone Garcia MD - 04/21/2025 [facility] Radiology Services - Noninvasive Vascular [address] [facility] [address] [place] [address] Noninvasive Vascular Lab Arterial Exam Complete Lower Extremity Duplex Patient: Lucy Dotson Study ID: [id number] Gender: F : 1955 Age: 69 Room: Height: 157.5cm Weight: 47.2kg BSA: 1.43m^2 Pt status: Outpatient Study Date: 04/20/2025 Study Time: 03:42:27 PM BSA: 1.43m^2 Ordering: Zenaida Webster Interpreting:Tone Garcia Welder Plasma Arc: Erika Fernandez Indications: CLAUDICATION. History: Bilateral calf pain, with minimal activity. Claudication.Risk factors: Former smoker - years since quittinyr. Packs perday/years: -. Coronary artery disease. Summary Impression: 1. No significant peripheral arterial disease is identified. 2. No evidence of arterial insufficiency, involving the right lowerextremity. 3. No evidence of arterial insufficiency, involving the left lowerextremity. Study data: Bilateral lower extremity arterial duplex. Duplex scanand ankle-brachial index. Height: 157.5cm. Height: 62in. Weight:47.2kg. Weight: 104.1lb. BMI: 19kg/m^2. BSA: 1.43m^2. Location:Vascular laboratory. Patient status: Outpatient. Study status: Routine. Procedure: A vascular evaluation was performed with the patient in thesupine position. Imaged vessel(s): the right common femoral, right deepfemoral, right femoral, right popliteal, right anterior tibial, right posteriortibial, right dorsal pedal, left common femoral, left deep femoral, left femoral,left popliteal, left anterior tibial, left posterior tibial, and left dorsalpedal arteries. Presentation case quality. Arterial flow: - Right common femoral: Right common femoral 1.16m/sec - Right deep femoral: Right deep femoral 0.86m/sec - Right femoral proximal: Right femoral proximal 0.45m/sec - Right femoral mid: Right femoral mid 0.79m/sec - Right femoral distal: Right femoral distal 0.55m/sec - Right popliteal: Right popliteal 0.44m/sec - Right posterior tibial: Right posterior tibial 0.6m/sec - Right peroneal: Right peroneal 0.53m/sec - Right anterior tibial: Right anterior tibial 0.49m/sec - Right dorsal pedal: Right dorsal pedal 0.43m/sec - Left common femoral: Left common femoral 0.88m/sec - Left deep femoral: Left deep femoral 0.67m/sec - Left femoral proximal: Left femoral proximal 0.74m/sec - Left femoral mid: Left femoral mid 0.82m/sec - Left femoral distal: Left femoral distal 0.57m/sec - Left popliteal: Left popliteal 0.46m/sec - Left posterior tibial: Left posterior tibial 0.56m/sec - Left peroneal: Left peroneal 0.43m/sec - Left anterior tibial: Left anterior tibial 0.28m/sec - Left dorsal pedal: Left dorsal pedal 0.28m/sec Ankle brachial indices Baseline Baseline Rt PT: 135mm Hg Rt DP:122mm Hg Rt brachial: 120mm Hg Rt PT: 1.13 Rt DP: 1.02 Lt PT: 120mm Hg Lt DP:110mm Hg Lt Brachial: 116mm Hg Lt PT: 1.00 Lt DP: 0.92 Prepared and Electronically Authenticated Tone Garcia Confirmed 04/21/2025 12:17 us Zenaida Webster SOA INTEGRATION DEVELOPER US ORDERABLES Final Re sult documented in this encounter Visit Diagnoses Diagnosis Pain in both lower extremities documented in this encounter Care Teams Rn Urology Relationship Specialty Start Date End Date Lilly Davis MD [address] [phone] PCP - General Family Practice 10/02/21 documented as of this encounter
[2025-04-21 12:17] VITALS: BP 95/63; PULSE 75; RESP 18; TEMP 36.4; O2SAT 97; BMI 19.3
--- OUTSIDE RECORDS SUMMARY | 2025-04-21 12:18 | XMS_ITS | Encounter Summary ---
Author Organization [facility] Address [address] [place] [address] Care Team Providers Care Long Term Acute Care Registered Nurse Name Role Phone Carlita Avendaño Primary Care Provider [phone] Reason for Referral * Outpatient Services (Routine) - Closed Specialty Diagnoses / Procedures Referred By Tanika ellis Referred To Contact Radiology Diagnoses Right thyroid nodule Procedures US HEAD NECK TISSUES Latisha Webster FNP [address] [place] [address] Phone: tel: fax: [facility] [address] [facility] [address] [place] [address] Phone: tel: fax: Referral ID Status Reason Start Date Expiration Date V isits Requested Visits Authorized [id number] Closed WIN View CTS to Schedule (SGF) 12/10/2016 01/10/2018 1 1 Encounter Details Date Type Department Care Team (Latest Contact Info) Description 12/10/2016 Ancillary Orders [facility] Centralized Scheduling [address] [facility] [address] [place] [address] Latisha Webster FNP [address] [place] [address] Right thyroid nodule Social History Tobacco Use Types Packs/Day Years Used Date Smoking Tobacco: Every Day Cigarettes Smokeless Tobacco: Never Alcohol Use Standard Drinks/Week Comments No 0 (1 standard drink = 0.6 oz pur e alcohol) Comments No Sex and Gender Information Value Date Recorded Sex Assigned at Not on file Legal Sex Female 7:51 AM CDT Gender Identity Not on file Sexual Orientation Not on file documented as of this encounter Plan of Treatment Not on file documented as of this encounter Results * US HEAD NECK TISSUES (12/10/2016 2:25 PM CDT) Anatomical Region Laterality Modality Head Ultrasound 12/10/2016 2:27 PM CDT Impressions 12/11/2016 9:45 AM CDT IMPRESSION: Please see below. Exam: US HEAD NECK TISSUES Date/Time of Exam: 12/10/2016 2:25 PM Reason For Exam: Right thyroid nodule. Findings: The right thyroid lobe measures 3.7 cm x 1.0 cm x 0.8 cm. Right lobe parenchyma is heterogeneous. There is a possible nodule in the right lobe which is hypoechoic and measures 6 mCi by 5 mm x 10 mm in diameter. Left thyroid lobe measures 4.17 m x 1.5 cm x 1.1 cm. The left lobe parenchyma is diffusely heterogeneous without specific or dominant nodule. IMPRESSION: The thyroid lobes appear somewhat atrophic and markedly heterogeneous with possible nonspecific nodule in the right lobe. Narrative Procedure Note Sukh Price MD - 12/11/2016 IMPRESSION IMPRESSION: Please see below. Exam: US HEAD NECK TISSUES Date/Time of Exam: 12/10/2016 2:25 PM Reason For Exam: Right thyroid nodule. Findings: The right thyroid lobe measures 3.7 cm x 1.0 cm x 0.8 cm. Right lobe parenchyma is heterogeneous. There is a possible nodule in the right lobe which is hypoechoic and measures 6 mCi by 5 mm x 10 mm in diameter. Left thyroid lobe measures 4.17 m x 1.5 cm x 1.1 cm. The left lobe parenchyma is diffusely heterogeneous without specific or dominant nodule. IMPRESSION: The thyroid lobes appear somewhat atrophic and markedly heterogeneous with possible nonspecific nodule in the right lobe. us Latisha LAGOS US ORDERABLES Final Resul t documented in this encounter Visit Diagnoses Diagnosis Right thyroid nodule Nontoxic uninodular goiter Right thyroid nodule Nontoxic uninodular goiter documented in this encounter Care Teams Long Term Acute Care Registered Nurse Relationship Specialty Start Date End Date Carlita Avendaño DO [address] [place] [phone] PCP - General Family Practice 01/09/20 documented as of this encounter
--- OUTSIDE RECORDS SUMMARY | 2025-04-21 12:18 | XMS_ITS | Encounter Summary ---
Author Organization [facility] Address [address] [place] [address] Care Team Providers Care Orthopedic Shoe Fitter Name Role Phone Lilly Davis MD Primary Care Provider [phone] Encounter Details Date Type Department Care Team (Late st Contact Info) Description 04/20/2025 Orders Only [facility] [address] [phone] Zenaida Webster, [facility] [address] [address] Tobacco dependence; COPD with hypoxia (CMS/HCC); Chronic respiratory failure with hypoxia (CMS/HCC); Personal history of nicotine dependence Social History Tobacco Use Types Packs/Day Years [...] worry about transportation for future doctor visits, crop picker medication, etc.? 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 Gender Identity Not on file Sexual Orientation Not on file documented as of this encounter Plan of Treatment Upcoming Encounters Date Type Department Care Team (Late st Contact Info) Description 05/07/2025 8:20 AM INSURANCE AGENTS SUPERVISOR Office Visit [facility] [place] [address] [phone] Zenaida Webster FNP [address] [address] 05/11/2025 10:00 AM INSURANCE AGENTS SUPERVISOR [facility] [place] [address] [address] Zenaida Webster FNP [address] [phone] 05/11/2025 11:00 AM INSURANCE AGENTS SUPERVISOR Appointment [facility] [address] [address] Zenaida Webster, WELLNESS PROGRAM ADMINISTRATOR [address] [place] [address] 05/24/2025 1:20 PM INSURANCE AGENTS SUPERVISOR Office Visit [facility] [place] [address] [place] [address] Lilly Davis MD [address] [place] [address] 07/15/2025 3:00 PM CDT Appointment [facility] [address] [place] [address] Onur Menendez MD [address] [place] [address] 08/24/2025 2:[address] [facility] [place] [address] [place] [address] Muna Haile, SOHAN [address] [place] [address] documented as of this encounter Procedures Procedure Name Priority Date/Time Associated Diagnosis Comments CT LUNG SCREENING (LDCT BASELINE OR ANNUAL) Routine 04/19/2025 Tobacco dependence COPD with hypoxia (CMS/HCC) Chronic respiratory failure with hypoxia (CMS/HCC) Personal history of nicotine dependence documented in this encounter Results * CT LUNG SCREENING (LDCT BASELINE OR ANNUAL) (04/19/2025) Anatomical Region Laterality Modality Chest Computed Tomogra phy Zenaida Webster [facility] CT ORDERABLES Final Re sult documented in this encounter Visit Diagnoses Diagnosis Tobacco dependence Tobacco use disorder COPD with hypoxia (CMS/HCC) Chronic respiratory failure with hypoxia (CMS/HCC) Chronic respiratory failure Personal history of nicotine dependence Personal history of tobacco use, presenting hazards to health documented in this encounter Care Teams Orthopedic Shoe Fitter Relationship Specialty Start Date End Date Lilly Davis MD [address] [phone] PCP - General Family Practice 10/02/21 documented as of this encounter
--- OUTSIDE RECORDS SUMMARY | 2025-04-21 12:18 | XMS_ITS | Clinical Summary ---
Author Organization [facility] Address [address] [address] Phone Care Team Providers Care Curb Supervisor Name Role Phone Carlita Avendaño Primary Care Provider Allergies No known active allergies Medications ibuprofen (MOTRIN) 800 mg tablet Take 1 Tablet (800 mg) by mouth every 6 hours as needed for Pain, Mild. 40 Tablet 9 Active ProAir HFA 90 mcg/actuation inhalerIndication s:Chronic obstructive pulmonary disease, unspecified COPD type (CMS/HCC) INHALE 2 PUFFS BY MOUTH EVERY 6 HOURS NEEDED SHORTNESS OF BREATH OR WHEEZING 8.5 Gram 2 1 Active albuterol HFA 90 mcg inhaler Take 2 Puffs by inhalation every 6 hours as needed for Wheezing or Shortness of Breath. 8.5 Gram 1 Active albuterol (PROVENTIL,VENTOL IN) 2.5 mg /3 mL (0.083 %) Solution for NebulizationIndic ations:Chronic obstructive pulmonary disease, unspecified COPD type (CMS/HCC) Take 3 mL (2.5 mg) by inhalation every 6 hours as needed for Shortness of Breath. 300 mL 5 1 Active walker with wheels and seatIndications:G eneralized muscle weakness,Chronic low back pain with bilateral sciatica, unspecified back pain laterality,DDD (degenerative disc disease), lumbar Face to Face completed within 6 months: yes Length of Need: 99 months 1 Each 1 Active nicotine (NICODERM CQ) 21 mg/24 hr patchIndications: Smoking addiction Apply 1 Patch to skin as directed every 24 hours. 14 Patch 1 1 Active DULoxetine (Cymbalta) 30 mg Capsule, Delayed Release(E.C.)Lynne cations:Fibromyal rell Take 1 Capsule (30 mg) by mouth daily. 30 Capsule 2 1 Active memantine (NAMENDA) 10 mg TabletIndications :Dementia without behavioral disturbance, unspecified dementia type (CMS/HCC) Take 1 Tablet (10 mg) by mouth daily at bedtime. 30 Tablet 5 1 Active levothyroxine 88 mcg tabletIndications :Hypothyroidism due to acquired atrophy of thyroid Take 1 Tablet (88 mcg) by mouth daily in the morning. 30 Tablet 1 Active Nebulizer & Compressor For Neb DeviceIndications :COPD with exacerbation (CMS/HCC) Nebulizer treatment every 4 hours for SOB/cough 1 Each 1 Active revefenacin (Yupelri) 175 mcg/3 mL Solution for NebulizationIndic ations:Chronic obstructive pulmonary disease, unspecified COPD type (CMS/HCC) Take 3 mL by inhalation daily. 30 Each 5 1 Active pregabalin (LYRICA) 100 mg CapsuleIndication s:Fibromyalgia TAKE ONE CAPSULE BY MOUTH EVERY 12 HOURS 60 Capsule 5 1 Active Active Problems Problem Noted Date Diagnosed Date Gout 06/03/2020 Chronic obstructive pulmonary disease 06/03/2020 Depression with anxiety 06/03/2020 Hypothyroidism due to acquired atrophy of thyroi d 11/12/2017 Immunizations Immunization Administration Dates Next Due Influenza Vaccine Quad Split 3+ Yrs Im 0 Social History Tobacco Use Types Packs/Day Years Used Date Smoking Tobacco: Every Day Cigarettes Smokeless Tobacco: Never Tobacco Cessation:Ready to Q uit: Yes; Counseling Given: Yes Alcohol Use Standard Drinks/Week Comments Yes 0 (1 standard drink = 0.6 oz pur e alcohol) Comments No Sex and Gender Information Value Date Recorded Sex Assigned at Not on file Legal Sex Female 7:51 AM CDT Gender Identity Not on file Sexual Orientation Not on file Last Filed Vital Signs Vital Sign Reading Time Taken Comments Blood Pressure 104/72 08/31/2020 10:52 AM CDT Pulse 83 08/31/2020 10:52 AM CDT Temperature 36.8 C (98.2 F) 08/31/2020 10:52 AM CDT Respiratory Rate 20 06/20/2020 12:48 PM MEMORIAL ADVISER Oxygen Saturation 96% 08/31/2020 10:52 AM CDT Inhaled Oxygen Concentration - - Weight 58.2 kg (128 lb 6.4 oz) 08/31/2020 10:52 AM CDT Height 165.1 cm (5' 5 ) 08/31/2020 10:52 AM CDT Body Mass Index 21.37 08/31/2020 10:52 AM CDT Plan of Treatment Health Maintenance Due Date Last Done Comments DTAP/TDAP/TD VACCINES (1 - Tdap) 07/31/1975 PNEUMOCOCCAL VACCINE 50+ YEARS (1 of 2 - PCV) 07/30/18 76 Preventative Visit-Managed Medicaid 07/31/1975 BREAST CANCER SCREENING 1996 COLORECTAL SCREENING 2001 Colorectal Cancer Screening 2001 FIT-DNA Q 3 years 2001 FIT/FOBT Q 1 year 2001 Flex Sig/CT Colonography Q 5 years 2001 RSV VACCINE (60+ or ) (1 - Risk 50-74 years 1-dose series) 2006 ZOSTER VACCINE (1 of 2) 2006 INFLUENZA VACCINE (#1) 2024 01/01/2020 OSTEOPOROSIS SCREENING 10/04/2027 10/03/2022 Insurance MEDICAID [place] Care Teams Curb Supervisor Relationship Specialty Start Date End Date Carlita Avendaño DO [address] [place] [address] PCP - General Family Practice 01/09/20
--- OUTSIDE RECORDS SUMMARY | 2025-04-21 12:18 | XMS_ITS | Clinical Summary ---
[facility] Address [address] [facility] [address] [place] [address] Phone Care Team Providers Care Flow Manager Name Role Phone Lilly Davis MD Primary Care Provider [phone] Allergies No known active allergies Medications Nebulizer & Compressor For Neb DeviceIndication s:COPD with exacerbation ([facility]) Nebulizer treatment every 4 hours for SOB/cough 1 Each 0 021 Active walker with wheels and seatIndications: Generalized muscle weakness,Chronic low back pain with bilateral sciatica, unspecified back pain laterality,DDD (degenerative disc disease), lumbar Face to Face completed within 6 months: yesLength of Need: 99 months 1 Each 0 021 Active cane Length of Need: 99 months. Weight: 57.2 kg (126 lb) (02/17/21 1303) Weight: Wt Readings from Last 1 Encounters: 02/17/21 : 57.2 kg (126 lb) Height: Ht Readings from Last 1 Encounters: 02/17/21 : 5' 5 (1.651 m) Type: single cane. If over 250 lb, needs heavy duty 1 Each 021 Active clopidogreL (PLAVIX) 75 mg Tablet Take 75 mg by mouth. Active oxygen home delivery Home Oxygen Concentrator yes at 2 L/M Sleep, Delivery Device: Nasal Cannula Portability: no, 0 L/M Rest, 0 L/M Activity, May provide device best for patient needs(E system,home fill, conserving device) Length of Need: 99 months 1 Each 023 Active Additional Information Patient taking differently: DAILY AT BEDTIME, Home Oxygen Concentrator yes at 2 L/M Sleep, Delivery Device: Nasal CannulaPortability: no, 0 L/M Rest, 0 L/M Activity, May provide device best for patient needs(E system,home fill, conserving device)Length of Need: 99 months, Reported on 03/31/2025 nebulizer Length of need 99 months Nebulizer with compressor, Kit: Disposable Nebulizer Kit, 2 per month, filters , areosol mask: Yes. Name of Medication albuterol 1 Each Active Nebulizer Accessories Kit Use as directed with nebulizer 2 Each 2 023 Active pantoprazole (PROTONIX) 40 mg Tablet, Delayed Release (E.C.) Take 1 Tablet (40 mg) by mouth daily. 90 Tablet 025 Active metoprolol succinate (TOPROL XL) 25 mg Extended Release 24 hour tablet Take 0.5 Tablets (12.5 mg) by mouth daily. 50 Tablet 025 Active lisinopriL (PRINIVIL) 10 mg tabletIndication s:Primary hypertension Take 1 Tablet (10 mg) by mouth 2 times daily. 200 Tablet 025 Active ferrous sulfate 325 mg (65 mg iron) tabletIndication s:Iron deficiency anemia secondary to inadequate dietary iron intake Take 1 Tablet (325 mg) by mouth daily. 100 Tablet 025 Active Breztri Aerosphere 160 mcg-9mcg-4.8mcg/ actuation HFA aerosol inhaler Take 2 Puffs by inhalation 2 times daily. 10.7 Gram 025 Active aspirin (ECOTRIN EC) 81 mg Tablet, Delayed Release (E.C.) Take 1 Tablet (81 mg) by mouth daily. 100 Tablet 025 Active buPROPion HCL (WELLBUTRIN SR) 200 mg Sustained Release 12 hour tabletIndication s:Moderate episode of recurrent major depressive disorder (CMS/HCC) Take 1 tablet by mouth once daily 100 Tablet 2 025 Active simvastatin (ZOCOR) 40 mg tablet Take 1 Tablet (40 mg) by mouth daily with supper. 100 Tablet 2 025 Active formoterol (Perforomist) 20 mcg/2 mL Solution for Nebulization USE 1 VIAL IN NEBULIZER TWICE DAILY - Morning And Evening (Use With Budesonide) 2 mL 11 Active albuterol (PROVENTIL,GINA ROMMEL) 2.5 mg /3 mL (0.083 %) Solution for Nebulization USE 1 VIAL IN NEBULIZER DAILY - As Needed (For Rescue Only) 30 Each Active memantine (NAMENDA) 10 mg TabletIndication s:Dementia without behavioral disturbance (CMS/HCC),Mood disorder,Moderat e cognitive impairment Take 1 tablet by mouth twice daily 200 Tablet 2 025 Active levothyroxine 88 mcg tabletIndication s:Hypothyroidism due to acquired atrophy of thyroid Take 1 tablet by mouth once daily 100 Tablet 1 025 Active pregabalin (LYRICA) 150 mg CapsuleIndicatio ns:Fibromyalgia TAKE 1 CAPSULE BY MOUTH EVERY 12 HOURS 60 Capsule 4 025 Active ondansetron (ZOFRAN ODT) 4 mg Tablet, Rapid Dissolve TAKE ONE TABLET EVERY 8 HOURS NEEDED FOR NAUSEA AND VOMITING FOR THREE DAYS Active predniSONE (DELTASONE) 20 mg tablet TAKE 3 TABLETS BY MOUTH FOR 3 DAYS,THEN TAKE 2 TABS FOR 2 DAYS, THEN 1 TAB FOR 2 DAYS Active albuterol sulfate 90 mcg/Actuation inhaler INHALE 2 PUFFS BY MOUTH EVERY 4 HOURS NEEDED FOR SHORTNESS OF BREATH 9 Gram 2 025 Active traZODone (DESYREL) 50 mg tabletIndication s:Insomnia, unspecified type TAKE 1 TABLET BY MOUTH ONCE DAILY AT BEDTIME 100 Tablet Active albuterol (PROVENTIL,GINA ROMMEL) 0.63 mg/3 mL Solution for Nebulization USE 1 VIAL IN NEBULIZER EVERY 8 HOURS NEEDED FOR SHORTNESS OF BREATH. USE WITH IPRATROPIUM. 270 mL 3 025 Active DULoxetine (CYMBALTA) 60 mg Capsule, Delayed Release(E.C.)Ind ications:Mood disorder,Recurre nt major depressive disorder, in full remission Take 1 capsule by mouth twice daily 180 Capsule 1 025 Active traMADol (ULTRAM) 50 mg tabletIndication s:Pain in both lower extremities,DDD (degenerative disc disease), thoracolumbar Take 1 Tablet (50 mg) by mouth every 6 hours as needed for Pain. 15 Tablet Active DULoxetine (CYMBALTA) 60 mg Capsule, Delayed Release(E.C.)Ind ications:Mood disorder,Recurre nt major depressive disorder, in full remission Take 1 Capsule (60 mg) by mouth 2 times daily. 180 Capsule 1 025 2024 Discontinued albuterol (PROVENTIL,GINA ROMMEL) 0.63 mg/3 mL Solution for Nebulization USE 1 VIAL IN NEBULIZER EVERY 8 HOURS NEEDED FOR SHORTNESS OF BREATH. USE WITH IPRATROPIUM. 270 mL 2 025 2024 Discontinued baclofen (LIORESAL) 5 mg tablet Take 0.5 Tablets (2.5 mg) by mouth 3 times daily for 14 days. 21 Tablet 025 2024 Discontinued(L ab Value) celecoxib (CeleBREX) 200 mg capsule Take 1 Capsule (200 mg) by mouth 2 times daily. 60 Capsule 025 2024 Discontinued(L ab Value) traMADol (ULTRAM) 50 mg tabletIndication s:Pain in both lower extremities,DDD (degenerative disc disease), thoracolumbar Take 1 Tablet (50 mg) by mouth every 6 hours as needed for Pain. 15 Tablet 025 2024 Discontinued(R eorder) Active Problems Problem Noted Date Diagnosed Date Closed displaced fracture of fifth metatarsal bone of left foot 01/16/2025 Closed displaced fracture of second metatarsal bone of left foot 01/16/2025 Closed traumatic compression fracture of thoraci c vertebra 01/16/2025 Mild cognitive impairment 06/25/2024 Hypertensive urgency 03/05/2023 Closed fracture of second metacarpal bone of lef t hand 02/04/2023 Chronic respiratory failure with hypoxia 023 Anxiety attack 05/07/2022 Recurrent major depressive disorder, in full rem ission 02/15/2022 Hypertension 02/15/2022 Gastroesophageal reflux disease 02/15/2022 Dementia without behavioral disturbance 10/03/19 Assessment & Plan (10/02/2021 9:12 AM CDT): Stable. Continue supportive care. Continue current treatment. Every Word Counts- Dementia ([facility]) Fibromyalgia 03/05/2021 Tobacco dependence 03/05/2021 Gout 06/03/2020 COPD with hypoxia 06/03/2020 Depression with anxiety 06/03/2020 Hypothyroidism due to acquired atrophy of thyroi d 11/12/2017 Encounters Date Type Department Care Team Description 04/20/2025 3:22 PM BASTING PULLER - 04/20/2025 11:59 PM [facility]ING [facility]ER Hospital Encounter [facility] [address] [phone] Zenaida Webster FNP Arrived Discharge Disposition: Home or Self Care 04/20/2025 Orders Only [address] [phone] Zenaida Webster FNP Tobacco dependence; COPD with hypoxia (CMS/HCC); Chronic respiratory failure with hypoxia (CMS/HCC); Personal history of nicotine dependence 04/12/[address] [phone] Lilly Davis MD Pain in both lower extremities; DDD (degenerative disc disease), thoracolumbar 04/05/2025 8:17 AM BASTING PULLER - 04/05/2025 11:59 PM [facility]ING P[facility]ER Hospital Encounter [facility] [address] [phone] Muna Haile NP Discharge Disposition: Home or Self Care 04/05/2025 Results Follow-Up [facility] Pulmonology [address] [place] [phone] Muna Haile NP ECHO COMPLETE - CONTRAST AND STRAIN IF INDICATED 04/02/2025 Results Follow-Up [address] [phone] Zenaida Webster FNP COMPREHENSIVE METABOLIC PANEL, CBC WITH DIFFERENTIAL, MAGNESIUM LEVEL, Additional followed-up results: 5 03/31/2025 12:04 PM BASTING PULLER - 03/31/2025 11:59 PM [facility]ING P[facility]ER Hospital Encounter [facility] Outpatient Laboratory [facility] [place] [address] [phone] Zenaida Webster FNP Atrophy of thyroid (acquired) Discharge Disposition: Home or Self Care 03/31/2025 11:00 AM BASTING PULLER Office Visit [address] [phone] Zenaida Webster FNP Pain in both lower extremities (Primary Dx); Tobacco dependence; Need for influenza vaccination; COPD with hypoxia (CMS/HCC); Chronic respiratory failure with hypoxia (CMS/HCC); Tremor; Hypothyroidism due to acquired atrophy of thyroid; Primary hypertension; Need for pneumococcal vaccination; Personal history of nicotine dependence; Frail elderly 03/31/[address] [phone] Zenaida Webster FNP Question; Patient Communication 03/31/[address] [phone] Lilly Davis MD Pain in both lower extremities (Primary Dx); DDD (degenerative disc disease), thoracolumbar 03/30/[address] [phone] Zenaida Webster FNP Mood disorder; Recurrent major depressive disorder, in full remission 03/23/2025 1:00 PM BASTING PULLER Telemed [facility] [place] [address] [phone] Muna Haile NP Stage 3 severe COPD by GOLD classification (CMS/HCC) (Primary Dx); Emphysema of lung (CMS/HCC); Tobacco dependence; Nocturnal hypoxia 03/23/2025 External Device Data [facility]STRACTION Provider, Abstract 03/23/2025 External Device Data [facility] Provider, Abstract 03/23/2025 External Device Data [facility] Provider, Abstract 03/20/2025 External Device Data [address] [place] [phone] Elisha Lin MD 03/19/2025 2:32 PM BASTING PULLER - 03/19/2025 4:15 PM BASTING PULLER Emergency [facility] Emergency Medicine [address] [facility] [address] [place] [phone] Osteoarthritis of spine with radiculopathy, lumbosacral region (Primary Dx) Discharge Disposition: Home or Self Care 03/16/2025 External Device Data [facility] ABSTRACTION Provider, Abstract 03/16/2025 External Device Data [facility] ABSTRACTION Provider, Abstract 03/09/2025 External Device Data [facility]STRACTION Provider, Abstract 03/08/2025 [facility] [address] [phone] Zenaida Webster, YOLIS Insomnia, unspecified type 03/07/2025 [facility] [address] [phone] Amparo Velasquez NP from Last 3 Months Immunizations Immunization Administration Dates Next Due (PREVNAR 20)(6 WKS UP) PNEUM OCOCCAL CONJUGATE VACCINE 20-VALENT (PCV20), POLYSACCHARIDE [id number] CONJUGATE, ADJUVANT 0.5 ML (PF) IM 03/31/2025 ([place])(18 YRS UP) HEPATIT IS A AND HEPATITIS B VACCINE ADULT, 1 ML, IM 04/26/2014,01/26/2014,11/19/2013 INFLUENZA VACCINE HIGH DOSE QUADRIVALENT 65 YR UP PF IM 02/15/2022 INFLUENZA VACCINE HIGH DOSE TRIVALENT SPLIT VIRUS, (65 YR UP), 0.5ML (PF), IM 03/31/2025,02/10/2024 INFLUENZA VACCINE QUADRIVALE NT 6 MOS UP CELL DERIVED PF IM 01/08/2017 Influenza Seasonal Unspecifi ed Formulation IM 01/01/2020 Influenza Vaccine Quad Split 3+ Yrs Im 0 Zoster Vaccine Live SQ 01/08/2017 Family History Medical History Relation Name Comments Colon Cancer Daughter Relation Name Status Comments Daughter Social History Tobacco Use Types Packs/Day Years Used Date Smoking Tobacco: Former Cigarettes 1 61 S tarted: 04/22/1964 Passive Smoke Exposure: Past Smokeless Tobacco: Never Tobacco Cessation:Counseling Given: Not Answered Alcohol Use Standard Drinks/Week Comments Not Currently [...] worry about transportation for future doctor visits, poultry picker medication, etc.? No 2024 Housing Stability [...] on file Legal Sex Female 12:52 AM BASTING PULLER Gender Identity Not on file Sexual Orientation Not on file Last Filed Vital Signs Vital Sign Reading Time Taken Comments Blood Pressure 104/69 03/31/2025 11:18 AM BASTING PULLER Pulse 83 03/31/2025 11:18 AM BASTING PULLER Temperature 36.6 C (97.9 F) 03/31/2025 11:18 AM BASTING PULLER Respiratory Rate 16 03/31/2025 11:18 AM BASTING PULLER Oxygen Saturation 97% 03/31/2025 11:18 AM BASTING PULLER Inhaled Oxygen Concentration - - Weight 47.3 kg (104 lb 3.2 oz) 03/31/2025 11:18 AM BASTING PULLER Height 157.5 cm (5' 2 ) 03/31/2025 11:18 AM BASTING PULLER Body Mass Index 19.06 03/31/2025 11:18 AM BASTING PULLER Plan of Treatment Upcoming Encounters Date Type Department Care Team (Late st Contact Info) Description 05/07/2025 8:20 AM BASTING PULLER Office Visit [facility] [address] [place] [phone] Zenaida Webster [facility] [address] [place] [phone] 05/11/2025 10:00 AM [facility] P[facility]ER [facility] [address] [place] [phone] Zenaida Webster FNP [address] [place] [phone] 05/11/2025 11:00 AM BASTING PULLER Appointment [facility] [address] [place] [phone] Zenaida Webster [facility] [address] [place] [phone] 05/24/2025 1:20 PM BASTING PULLER Office Visit [facility] [address] [place] [phone] Lilly Davis MD [address] [place] [phone] 07/15/2025 3:00 PM CDT Appointment [facility] [address] [place] [phone] Onur Menendez MD [address] [place] [phone] 08/24/2025 2:30 PM CDT [facility] [place] [address] [place] [address] Muna Haile NP [address] [place] [address] Health Maintenance Due Date Last Done Comments FIT/ DNA Q 3 YEARS (AUTO ORDER) 1974 FIT/FOBT Q 1 YEAR (AUTO ORDER) 1974 FLEX SIG/CT COLONOGRAPHY Q 5 YEARS (AUTO ORDER) 1974 DTAP/TDAP/TD VACCINES (1 - Tdap) 07/31/1975 COLORECTAL CANCER SCREENING (AUTO ORDER) 2001 COLORECTAL SCREENING 2001 Colorectal Cancer Screening (AUTO ORDER) 2001 Colorectal Cancer Screening 2001 FIT-DNA Q 3 years 2001 FIT/FOBT Q 1 year 2001 Flex Sig/CT Colonography Q 5 years 2001 RSV VACCINE (60+ or ) (1 - Risk 50-74 years 1-dose series) 2006 ZOSTER VACCINE (2 of 3) 03/05/2017 01/08/2017 Medicare Advantage ([place]) Preventative Visit/Annual Wellness Visit 04/22/2024 05/03/2023, 09/06/2022, 10/02/2021 OSTEOPOROSIS SCREENING 10/04/2027 10/03/2022 INFLUENZA VACCINE Completed 03/31/2025, , 12/31/2022, Additional history exists PNEUMOCOCCAL VACCINE 50+ YEARS Completed 03/31/2025 Procedures Procedure Name Priority Date/Time Associated Diagnosis Comments US DUPLEX ARTERIAL LEGS BILATERAL Routine 04/20/2025 4:38 PM BASTING PULLER Pain in both lower extremities CT LUNG SCREENING (LDCT BASELINE OR ANNUAL) Routine 04/19/2025 Tobacco dependence COPD with hypoxia (CMS/HCC) Chronic respiratory failure with hypoxia (CMS/HCC) Personal history of nicotine dependence ECHO COMPLETE Routine 04/05/2025 10:14 AM BASTING PULLER Dyspnea on exertion REFERENCE LAB PROCESSING FEE Routine 03/31/2025 12:15 PM BASTING PULLER Involuntary quiver MICROALBUMIN/CREATINI NE RATIO, RANDOM UR Routine 03/31/2025 12:00 AM BASTING PULLER Primary hypertension T4 FREE Routine 03/31/2025 12:00 AM BASTING PULLER Tremor Hypothyroidism due to acquired atrophy of thyroid T3 FREE Routine 03/31/2025 12:00 AM BASTING PULLER Tremor Hypothyroidism due to acquired atrophy of thyroid TSH Routine 03/31/2025 12:00 AM BASTING PULLER Tremor Hypothyroidism due to acquired atrophy of thyroid MAGNESIUM LEVEL Routine 03/31/2025 12:00 AM BASTING PULLER Tremor CBC WITH DIFFERENTIAL Routine 03/31/2025 12:00 AM BASTING PULLER Primary hypertension COMPREHENSIVE METABOLIC PANEL Routine 03/31/2025 12:00 AM BASTING PULLER Tremor CT LUMBAR SPINE WO CONTRAST Stat 03/19/2025 3:33 PM BASTING PULLER XR DEXA BONE DENSITY AXIAL 1 OR MORE SITES Routine 10/03/2022 2:57 PM CDT Asymptomatic menopause from Last 3 Months or Most Recently Relevant to Health Maintenance Results * US DUPLEX ARTERIAL LEGS BILATERAL (04/20/2025 4:38 PM BASTING PULLER) Anatomical Region Laterality Modality Lower Extremity Ultrasound 04/20/2025 3:42 PM BASTING PULLER Narrative 04/21/2025 12:17 PM BASTING PULLER [facility] Radiology Services - Noninvasive Vascular [address] [address] Noninvasive Vascular Lab Arterial Exam Complete Lower Extremity Duplex Patient: Lucy Dotson Study ID: [id number] Gender: F : 1955 Age: 69 Room: Height: 157.5cm Weight: 47.2kg BSA: 1.43m^2 Pt status: Outpatient Study Date: 04/20/2025 Study Time: 03:42:27 PM BSA: 1.43m^2 Ordering: Zenaida Webster Interpreting:Tone Garcia Smoking Pipes Cleaner: Erika Fernandez Indications: CLAUDICATION. History: Bilateral calf pain, with minimal activity. Claudication. Risk factors: Former smoker - years since quittinyr. Packs per day/years: -. Coronary artery disease. Summary Impression: 1. [...] Procedure Note Tone Garcia MD - 04/21/2025 [facility] Radiology Services - Noninvasive Vascular [address] [address] Noninvasive Vascular Lab Arterial Exam Complete Lower Extremity Duplex Patient: Lucy Dotson Study ID: [id number] Gender: F : 1955 Age: 69 Room: Height: 157.5cm Weight: 47.2kg BSA: 1.43m^2 Pt status: Outpatient Study Date: 04/20/2025 Study Time: 03:42:27 PM BSA: 1.43m^2 Ordering: Zenaida Webster Interpreting:Tone Garcia Smoking Pipes Cleaner: Erika Fernandez Indications: CLAUDICATION. History: Bilateral calf [...] Electronically Authenticated Tone Garcia Confirmed 04/21/2025 12:17 Zenaida Webster [facility] US ORDERABLES Final Re sult * CT LUNG SCREENING (LDCT BASELINE OR ANNUAL) (04/19/2025) Anatomical Region Laterality Modality Chest Computed Tomogra phy Zenaida Webster [facility] CT ORDERABLES Final Re sult * ECHO COMPLETE - CONTRAST AND STRAIN IF INDICATED (04/05/2025 10:14 AM BASTING PULLER) EJECTION FRACTION 63 INTERFACE SYSTEM 04/05/2025 9:33 AM BASTING PULLER Narrative INTERFACE SYSTEM - 04/05/2025 4:[address] [facility] Radiology Services - Echocardiology [address] [address] Transthoracic Echocardiography Patient: Lucy Dotson Study ID: [id number] Sylvester Gender: F : 1955 Age: 69 Room: [facility] Study 04/05/2025 Pt Date: Status: Study 09:33:51 AM [facility] #: [id number] Time: Ordering:Muna Haile Smoking Pipes Cleaner: Estefani Espinoza Indications and History: Dyspnea on exertion [R06.09 (ICD-10-CM)] Summary and Conclusion: - Left ventricle: The cavity size is normal. Wall thickness is normal. Global systolic function is normal. The estimated ejection fraction is 55-60%. For Epic reporting: the left ventricular ejection fraction is 63% by biplane method of disks. No diagnostic regional wall motion abnormality identified. Left ventricular diastolic function parameters are normal. - Right ventricle: The cavity size is normal. Systolic function is normal. Systolic pressure is within the normal range. The estimated peak pressure is 24mm Hg. - Aortic valve: Not well visualized. The peak systolic velocity is 93cm/sec. - Ascending aorta: The vessel is ectatic and 38.0mm diameter. Impressions: Technically difficult study. Comparison: No previous study was available for comparison. Procedure information: Study status: Routine. Procedure: A transthoracic echocardiogram was performed. Image quality was suboptimal. Scanning was performed from the parasternal, apical, subcostal, and suprasternal notch acoustic windows. Study components: M-mode, 2D, complete spectral Doppler, and color Doppler. Height: 157.5cm. Height: 62in. Weight: 47.2kg. Weight: 104.1lb. BMI: 19kg/m^2. BSA: 1.43m^2. Study date: 04/05/2025. Study time: 09:33 AM. Cardiac Anatomy: LEFT VENTRICLE: The cavity size is normal. Wall thickness is normal. Global systolic function is normal. The estimated ejection fraction is 55-60%. For Epic reporting: the left ventricular ejection fraction is 63% by biplane method of disks. No diagnostic regional wall motion abnormality identified. Left ventricular diastolic function parameters are normal. RIGHT VENTRICLE: The cavity size is normal. Systolic function is normal. Systolic pressure is within the normal range. The estimated peak pressure is 24mm Hg. LEFT ATRIUM: The atrium is normal in size. RIGHT ATRIUM: The atrium is normal in size. ATRIAL SEPTUM: No obvious PFO or ASD identified by 2D imaging and color Doppler. AORTIC VALVE: Not well visualized. There is no stenosis. There is no significant regurgitation. MITRAL VALVE: Structurally normal valve. Mobility is not restricted. No evidence for prolapse. There is no evidence for stenosis. There is no significant regurgitation. TRICUSPID VALVE: Structurally normal valve. Mobility is unrestricted. There is no evidence for stenosis. There is no significant regurgitation. PULMONIC VALVE: Not well visualized. The valve appears to be grossly normal. There is no evidence for stenosis. There is no significant regurgitation. PERICARDIUM: A minimal pericardial effusion and/or fat pad was identified. AORTA: Aortic root: The root is not dilated. Ascending aorta: The vessel is ectatic and 38.0mm diameter. Aortic arch: The vessel is not dilated. Measurements Left ventricle Value Left ventricle continued Value FS, LAX 32 % EDV, MM Teich. 94 ml FS 32 % EF, MM Teich. 60 % EDV 94 ml EDV/bsa, MM Teich. 66 ml/m^2 ESV 38 ml EF, MM on 2D Teich. 60 % EF 60 % E/e', lat navi, TDI 9 EDV/bsa 66 ml/m^2 E/e', med navi, TDI 9 ESV/bsa 26 ml/m^2 E/e', avg, TDI 9 EDV, 1-p A2C 66 ml ESV, 1-p A2C 38 ml Left atrium Value EF, 1-p A2C 58 % Vol, S 27 ml EDV/bsa, 1-p A2C 46 ml/m^2 Vol/bsa, S 19 ml/m^2 ESV/bsa, 1-p A2C 27 ml/m^2 EDV, 1-p A4C 58 ml Aortic valve Value ESV, 1-p A4C 19 ml Peak v, S 93 cm/sec EF, 1-p A4C 68 % Mean v, S 68 cm/sec SV, 1-p A4C 39 ml VTI, S 21.5 cm EDV/bsa, 1-p A4C 40 ml/m^2 Mean grad, S 2 mm Hg ESV/bsa, 1-p A4C 13 ml/m^2 SV/bsa, 1-p A4C 27 ml/m^2 Mitral valve Value EDV, 2-p 66 ml Peak E/A ratio 1.11 ESV, 2-p 28 ml EF, 2-p 62 % Descending aorta Value SV, 2-p 41 ml Prox Zach diam 1.5 cm EDV/bsa, 2-p 46 ml/m^2 ESV/bsa, 2-p 19 ml/m^2 Inferior vena cava Value SV/bsa, 2-p 28.6 ml/m^2 Prox diam, exp 1.5 cm Legend: (L) and (H) ciara values outside specified reference range. Prepared and Electronically Authenticated Arnel Singer Confirmed 04/05/2025 16:45 Procedure Note Arnel Singer MD - 04/05/2025 [facility] Radiology Services - Echocardiology 100 [facility] [address] [place] [address] Transthoracic Echocardiography Patient: Lucy Dotson Study ID:[id number] Sylvester Gender: F : 1955 Age: 69 Room: [facility] Study 04/05/2025 Pt Date: Status: Study 09:33:51 AM CSN #: [id number] Time: Ordering:Muna Haile Smoking Pipes Cleaner: Estefani Espinoza Indications and History: Dyspnea on exertion [R06.09 (ICD-10-CM)] Summary and Conclusion: - Left ventricle: The cavity size is normal. Wall thickness is normal.Global systolic function is normal. The estimated ejection fraction is 55-60%.For Epic reporting: the left ventricular ejection fraction is 63% bybiplane method of disks. No diagnostic regional wall motion abnormalityidentified. Left ventricular diastolic function parameters are normal. - Right ventricle: The cavity size is normal. Systolic function isnormal. Systolic pressure is within the normal range. The estimated peakpressure is 24mm Hg. - Aortic valve: Not well visualized. The peak systolic velocity is93cm/sec. - Ascending aorta: The vessel is ectatic and 38.0mm diameter. Impressions: Technically difficult study. Comparison: No previous study was available for comparison. Procedure information: Study status: Routine. Procedure: Atransthoracic echocardiogram was performed. Image quality was suboptimal. Scanning was performed from the parasternal, apical, subcostal, and suprasternalnotch acoustic windows. Study components: M-mode, 2D, completespectral Doppler, and color Doppler. Height: 157.5cm. Height: 62in. Weight: 47.2kg. Weight: 104.1lb. BMI: 19kg/m^2. BSA: 1.43m^2. Studydate: 04/05/2025. Study time: 09:33 AM. Cardiac Anatomy: LEFT VENTRICLE: The cavity size is normal. Wall thickness is normal.Global systolic function is normal. The estimated ejection fraction is 55-60%.For Epic reporting: the left ventricular ejection fraction is 63% by biplane method of disks. No diagnostic regional wall motion abnormalityidentified. Left ventricular diastolic function parameters are normal. RIGHT VENTRICLE: The cavity size is normal. Systolic function isnormal. Systolic pressure is within the normal range. The estimated peak pressureis 24mm Hg. LEFT ATRIUM: The atrium is normal in size. RIGHT ATRIUM: The atrium is normal in size. ATRIAL SEPTUM: No obvious PFO or ASD identified by 2D imaging and color Doppler. AORTIC VALVE: Not well visualized. There is no stenosis. There is no significant regurgitation. MITRAL VALVE: Structurally normal valve. Mobility is not restricted.No evidence for prolapse. There is no evidence for stenosis. There is no significant regurgitation. TRICUSPID VALVE: Structurally normal valve. Mobility isunrestricted. There is no evidence for stenosis. There is no significantregurgitation. PULMONIC VALVE: Not well visualized. The valve appears to be grosslynormal. There is no evidence for stenosis. There is no significantregurgitation. PERICARDIUM: A minimal pericardial effusion and/or fat pad wasidentified. AORTA: Aortic root: The root is not dilated. Ascending aorta: The vessel is ectatic and 38.0mm diameter. Aortic arch: The vessel is not dilated. Measurements Left ventricle Value Left ventricle continued Value FS, LAX 32 % EDV, MM Teich. 94 ml FS 32 % EF, MM Teich. 60 % EDV 94 ml EDV/bsa, MM Teich. 66 ml/m^2 ESV 38 ml EF, MM on 2D Teich. 60 % EF 60 % E/e', lat navi, TDI 9 EDV/bsa 66 ml/m^2 E/e', med navi, TDI 9 ESV/bsa 26 ml/m^2 E/e', avg, TDI 9 EDV, 1-p A2C 66 ml ESV, 1-p A2C 38 ml Left atrium Value EF, 1-p A2C 58 % Vol, S 27 ml EDV/bsa, 1-p A2C 46 ml/m^2 Vol/bsa, S 19 ml/m^2 ESV/bsa, 1-p A2C 27 ml/m^2 EDV, 1-p A4C 58 ml Aortic valve Value ESV, 1-p A4C 19 ml Peak v, S 93 cm/sec EF, 1-p A4C 68 % Mean v, S 68 cm/sec SV, 1-p A4C 39 ml VTI, S 21.5 cm EDV/bsa, 1-p A4C 40 ml/m^2 Mean grad, S 2 mm Hg ESV/bsa, 1-p A4C 13 ml/m^2 SV/bsa, 1-p A4C 27 ml/m^2 Mitral valve Value EDV, 2-p 66 ml Peak E/A ratio 1.11 ESV, 2-p 28 ml EF, 2-p 62 % Descending aorta Value SV, 2-p 41 ml Prox Zach diam 1.5 cm EDV/bsa, 2-p 46 ml/m^2 ESV/bsa, 2-p 19 ml/m^2 Inferior vena cava Value SV/bsa, 2-p 28.6 ml/m^2 Prox diam, exp 1.5 cm Legend: (L) and (H) ciara values outside specified reference range. Prepared and Electronically Authenticated Arnel Singer 04/05/2025 16:45 Muna Haile NP US ORDERABLES Final Result INTERFACE SYSTEM Refer to clinic/hospital department * REFERENCE LAB PROCESSING FEE (03/31/2025 12:15 PM BASTING PULLER) REFERENCE LAB SENDOUT Sent to Ref Lab 03/31/2025 2:01 PM BASTING P[employer]ER [facility] Other, specify BLOOD SPECIMEN / Unknown Collection / Unknown 03/31/2025 12:15 PM BASTING PULLER 03/31/2025 12:15 PM BASTING PULLER Zenaida Webster [facility] CHEMISTRY ORDERABLES Fin al Result [facility] # [id number] [address] [place] [id number] * MICROALBUMIN/CREATININE RATIO, RANDOM UR (03/31/2025 12:00 AM BASTING PULLER) CREATININE, URINE 191 20 - 275 mg/dL [facility] ALBUMIN, URINE 4.4 See Note: mg/dL [facility] Comment: Reference Range: Reference Range Not established ALB/CREAT RATIO, URINE 23 <30 mg/g creat [facility] Comment: The ADA defines abnormalities in albumin excretion as follows: Albuminuria Category Result (mg/g creatinine) Normal to Mildly increased <30 Moderately increased 30-299 Severely increased > OR = 300 The ADA recommends that at least two of three specimens collected within a 3-6 month period be abnormal before considering a patient to be within a diagnostic category. Test Performed at: [facility] [address] [address] [id number] Florin Zamora MD Urine URINE SPECIMEN OBTAINED BY CLEAN CATCH PROCEDURE / Unknown 03/31/2025 04/01/2025 3:13 AM BASTING PULLER Zenaida Webster [facility] URINE ORDERABLES Final R esult [facility] [phone] [place] [address] [address] [phone] * (ABNORMAL) CBC WITH DIFFERENTIAL (03/31/2025 12:00 AM BASTING PULLER) WBC 7.3 3.8 - 10.8 Thousand/u L [facility] RBC 3.71(L) 3.80 - 5.10 Million/uL [facility] HEMOGLOBIN 11.7 11.7 - 15.5 g/dL [facility] HEMATOCRIT 35.8(L) 35.9 - 46.0 % [facility] MCV 96.5 81.4 - 101.7 fL [facility] MCH 31.5 27.0 - 33.0 pg [facility] MCHC 32.7 31.6 - 35.4 g/dL [facility] RDW 13.3 11.0 - 15.0 % [facility] PLATELETS 323 140 - 400 Thousand/u L [facility] MPV 10.5 7.5 - 12.5 fL [facility] NEUTROPHIL ABSOLUTE 3,935 1,500 - 7,800 cells/uL [facility] LYMPHOCYTE ABSOLUTE 1,986 850 - 3,900 cells/uL [facility] MONOCYTE ABSOLUTE 679 200 - 950 cells/uL [facility] EOSINOPHIL ABSOLUTE 628(H) 15 - 500 cells/uL [facility] BASOPHILS ABSOLUTE 73 0 - 200 cells/uL [facility] NEUTROPHIL 53.9 % [facility] LYMPHOCYTES 27.2 % [facility] MONOCYTE 9.3 % [facility] EOSINOPHILS 8.6 % [facility] BASOPHILS 1.0 % [facility] Comment: Test Performed at: [facility] [address] [place] [address] [place] [address] KristieYolie Zamora MD Blood 03/31/2025 04/01/2025 3:1 3 AM BASTING PULLER Zenaida Webster [facility] PROFESSIONAL HEMATOLOGY ORDERABLES Fi nal Result [facility] [phone] [facility] [address] [place] [address] [place] [address] * T3 FREE (03/31/2025 12:00 AM BASTING PULLER) T3 FREE 2.3 2.3 - 4.2 pg/mL [facility] Comment: Test Performed at: [facility] [address] [facility] [place] [address] Florin Zamoar MD Blood 03/31/2025 04/01/2025 3:1 3 AM BASTING PULLER Zenaida Abarcariott [facility] CHEMISTRY ORDERABLES Fin al Result [facility] [phone] [employer] [facility] [address] [place] [address] * TSH (03/31/2025 12:00 AM BASTING PULLER) TSH 3.77 0.40 - 4.50 mIU/L [facility] Comment: Test Performed at: [facility] [address] [place] [address] Florin Zamora MD Blood 03/31/2025 04/01/2025 3:1 3 AM BASTING PULLER Zenaida Webster [facility] CHEMISTRY ORDERABLES Fin al Result Performing Organization Address City/Va Hospital/ZIP Co de Phone Number [facility] [phone] [place] [address] [place] [address] * T4 FREE (03/31/2025 12:00 AM BASTING PULLER) T4 FREE 1.7 0.8 - 1.8 ng/dL [facility] Comment: Test Performed at: [facility] [address] [place] [address] Florin Zamora MD Blood 03/31/2025 04/01/2025 3:1 3 AM BASTING PULLER [facility] Fin al Result Performing Organization Address City/Va Hospital/ZIP Co de Phone Number [facility] [phone] [place] [address] * MAGNESIUM LEVEL (03/31/2025 12:00 AM BASTING PULLER) MAGNESIUM 1.8 1.5 - 2.5 mg/dL [facility] Comment: Test Performed at: [facility] [address] [place] [address] Florin Zamora MD Blood 03/31/2025 04/01/2025 3:1 3 AM BASTING PULLER Zenaida Webster [facility] CHEMISTRY ORDERABLES Fin al Result [facility] [phone] [facility] [address] [facility] [place] [address] * (ABNORMAL) COMPREHENSIVE METABOLIC PANEL (03/31/2025 12:00 AM BASTING PULLER) Pathologist [facility] GLUCOSE 80 65 - 99 mg/dL [facility] Comment: Fasting reference interval BUN 46(H) 7 - 25 mg/dL [facility] CREATININE 2.42(H) 0.50 - 1.05 mg/dL [facility] GFR 21(L) > OR = 60 mL/min/1.7 3m2 [facility] BUN/CREAT RATIO 19 6 - 22 (calc) [facility] SODIUM 140 135 - 146 mmol/L [facility] POTASSIUM 4.5 3.5 - 5.3 mmol/L [facility] CHLORIDE 105 98 - 110 mmol/L [facility] CO2 21 20 - 32 mmol/L [facility] CALCIUM 9.4 8.6 - 10.4 mg/dL [facility] TOTAL PROTEIN 7.0 6.1 - 8.1 g/dL [facility] ALBUMIN 4.3 3.6 - 5.1 g/dL [facility] GLOBULIN 2.7 1.9 - 3.7 g/dL (calc) [facility] ALBUMIN/GLOBULIN RATIO 1.6 1.0 - 2.5 (calc) [facility] BILIRUBIN TOTAL 0.5 0.2 - 1.2 mg/dL [facility] ALKALINE PHOSPHATASE 59 37 - 153 U/L [facility] AST 16 10 - 35 U/L [facility] ALT 15 6 - 29 U/L [facility] Comment: Test [facility]formed [facility]: [facility] [address] [place] [address] Florin Zamora MD Blood 03/31/2025 04/01/2025 3:1 3 AM BASTING PULLER us Zenaida Webster MENTAL HEALTH PROFESSIONAL CHEMISTRY ORDERABLES Fin al Result [facility] [phone] [place] [address] [place] [address] * CT LUMBAR SPINE WO CONTRAST (03/19/2025 3:33 PM BASTING PULLER) Anatomical Region Laterality Modality Spine Computed Tomogra phy 03/19/2025 3:27 PM BASTING PULLER Impressions 03/19/2025 3:58 PM BASTING PULLER IMPRESSION: 1. No acute fracture. 2. Mild neural foramina stenosis at the L5 level bilaterally. 3. Severe degenerative changes are seen throughout the lumbar spine. Narrative 03/19/2025 3:58 PM BASTING PULLER Exam: CT LUMBAR SPINE WO CONTRAST Date/Time of Exam: 03/19/2025 3:33 PM Reason For Exam: Lumbar radiculopathy, symptoms persist with > 6 wks treatment Diagnosis: See Reason for Exam Axial images were obtained through the lumbar spine. Sagittal and coronal reformatted images are included. Postsurgical changes of vertebroplasty are present at T12, L1 and L2 levels. Vertebral body height in the lumbar spine is well maintained and the vertebral bodies are in good alignment. Degenerative changes with osteophyte formation along the endplate margins are present at all levels. Disc space narrowing is seen at many levels with vacuum disc phenomenon present, consistent with severe degenerative disc disease. Hypertrophy of the articular facets and ligamentum flavum is seen at all levels from L3-4 through L5-S1. There is no evidence of any focal posterior herniated discs. There is no appreciable stenosis of the spinal canal. Mild neural foramina stenosis is present at the L5 level bilaterally. No acute fracture or dislocation is seen. Procedure Note Dionisio Randolph MD - 03/19/2025 Exam: CT LUMBAR SPINE WO CONTRAST Date/Time of Exam: 03/19/2025 3:33 PM Reason For Exam: Lumbar radiculopathy, symptoms persist with > 6 wks treatment Diagnosis: See Reason for Exam Axial images were obtained through the lumbar spine. Sagittal and coronal reformatted images are included. Postsurgical changes of vertebroplasty are present at T12, L1 and L2 levels. Vertebral body height in the lumbar spine is well maintained and the vertebral bodies are in good alignment. Degenerative changes with osteophyte formation along the endplate margins are present at all levels. Disc space narrowing is seen at many levels with vacuum disc phenomenon present, consistent with severe degenerative disc disease. Hypertrophy of the articular facets and ligamentum flavum is seen at all levels from L3-4 through L5-S1. There is no evidence of any focal posterior herniated discs. There is no appreciable stenosis of the spinal canal. Mild neural foramina stenosis is present at the L5 level bilaterally. No acute fracture or dislocation is seen. IMPRESSION: 1. No acute fracture. 2. Mild neural foramina stenosis at the L5 level bilaterally. 3. Severe degenerative changes are seen throughout the lumbar spine. Yudelka Duncan [facility] CT ORDERABLES Final Resul t * (ABNORMAL) XR DEXA BONE DENSITY AXIAL 1 OR MORE SITES (10/03/2022 2:57 PM CDT) T-SCORE HIP (LEFT) -1.00 -1.0 - 1.0 INTERFACE SYSTEM T-SCORE SPINE -1.60(A) -1.0 - 1.0 INTER FACE SYSTEM Anatomical Region Laterality Modality Digital Radiogra phy 10/03/2022 2:58 PM CDT Impressions 10/04/2022 12:01 AM CDT IMPRESSION: Abnormal examination Bone density lies in the osteopenic range at all locations just below the average the patient's age-matched control consistent with age-appropriate physiologic versus early accelerated bone demineralization responsible for her osteopenia. NOF guidelines recommend consideration of FDA-approved medical therapies in patients with FRAX determined 10-year probabilities of hip/major osteoporosis-related fractures equal or greater than 3%/20% respectively. FRAX determined 10-year fracture risks for hip and major osteoporotic fractures are 4.5% and 16% respectively. Narrative 10/04/2022 12:01 AM CDT DEXA Evaluation of the Lumbar Spine and Left Proximal Femur Reason for Consultation: Ovarian failure for osteoporosis screening. Evaluation of bone mineral density. The following absorptiometry data were obtained. The quality of this examination is acceptable with regards to count density, processed images, data display and lack of important artifacts (including but not limited to motion and attenuation artifacts). Serial examination number 1. L1-L4 BMD (g/cm2): 0.874 Adult T-score: -1.6 Adult Z-score: 0.3 Left Femoral Neck BMD (g/cm2): 0.617 Adult T-score: -2.1 Adult Z-score: -0.5 Left Total Hip BMD (g/cm2): 0.815 Adult T-score: -1.0 Adult Z-score: 0.2 Procedure Note Neil Ya MD - 10/04/2022 DEXA Evaluation of the Lumbar Spine and Left Proximal Femur Reason for Consultation: Ovarian failure for osteoporosis screening. Evaluation of bone mineral density. The following absorptiometry data were obtained. The quality of this examination is acceptable with regards to count density, processed images, data display and lack of important artifacts (including but not limited to motion and attenuation artifacts). Serial examination number 1. L1-L4 BMD (g/cm2): 0.874 Adult T-score: -1.6 Adult Z-score: 0.3 Left Femoral Neck BMD (g/cm2): 0.617 Adult T-score: -2.1 Adult Z-score: -0.5 Left Total Hip BMD (g/cm2): 0.815 Adult T-score: -1.0 Adult Z-score: 0.2 IMPRESSION: Abnormal examination Bone density lies in the osteopenic range at all locations just below the average the patient's age-matched control consistent with age-appropriate physiologic versus early accelerated bone demineralization responsible for her osteopenia. NOF guidelines recommend consideration of FDA-approved medical therapies in patients with FRAX determined 10-year probabilities of hip/major osteoporosis-related fractures equal or greater than 3%/20% respectively. FRAX determined 10-year fracture risks for hip and major osteoporotic fractures are 4.5% and 16% respectively. Lilly Davis MD DIAGNOSTIC IMAGING ORDERABL ES Final Result from Last 3 Months or Most Recently Relevant to Health Maintenance Insurance [place] [employer] [employer] [facility] [id number] RX [employer] RX Member Subscriber Plan / Payer (Ef fective 2024-Present) Name:Lucy Dotson Relation to Subscriber:Self Name:Lucy Dotson Payer ID:Not on file Group ID:[id number] Type:RX Medicare Part D Address: [address] [employer] Medicaid Care Teams Flow Manager Relationship Specialty Start Date End Date Lilly Davis MD [address] [phone] PCP - General Family Practice 10/02/21
--- OUTSIDE RECORDS SUMMARY | 2025-04-21 12:19 | XMS_ITS | Encounter Summary ---
Author Organization [facility] Address [address] [place] [address] Care Team Providers Care Plaster Mechanic Name Role Phone Carlita Avendaño Primary Care Provider [phone] Encounter Details Date Type Department Care Team (Late st Contact Info) Description 01/06/2020 Ancillary Orders [facility] [place] [address] [place] [phone] Dtotie Dos Santos, DIRECTOR [facility] [address] [phone] Chronic right shoulder pain Social History Tobacco Use Types Packs/Day Years Used Date Smoking Tobacco: Every Day Cigarettes Smokeless Tobacco: Never Alcohol Use Standard Drinks/Week Comments Yes 0 (1 standard drink = 0.6 oz pur e alcohol) Comments No Sex and Gender Information Value Date Recorded Sex Assigned at Not on file Legal Sex Female 7:51 AM CDT Gender Identity Not on file Sexual Orientation Not on file COVID-19 Exposure Response Date Recorded In the last month, have you been in contact with someone who was confirmed or suspected to have Coronavirus / COVID-19? No / Unsure 01/06/2020 11:15 AM CDT documented as of this encounter Plan of Treatment Not on file documented as of this encounter Results * XR SHOULDER 2+ VW RIGHT (01/06/2020 11:31 AM CDT) Anatomical Region Laterality Modality Upper Extremity Computed Radiogr aphy 01/06/2020 11:3 3 AM CDT Impressions 01/06/2020 4:52 PM CDT IMPRESSION: Please see below. Exam: XR SHOULDER 2+ VW RIGHT Date/Time of Exam: 01/06/2020 11:31 AM Reason For Exam: See Diagnosis. Diagnosis: Chronic right shoulder pain; Chronic right shoulder pain. Comparison: None. Findings: Three views of the shoulder demonstrate no acute fracture or dislocation. Diffuse osteopenia is present. No significant joint space loss or productive change is identified. Impression: 1. Negative for acute osseous abnormality. [id number] Narrative Procedure Note Jessica Lopez MD - 01/06/2020 IMPRESSION: Please see below. Exam: XR SHOULDER 2+ VW RIGHT Date/Time of Exam: 01/06/2020 11:31 AM Reason For Exam: See Diagnosis. Diagnosis: Chronic right shoulder pain; Chronic right shoulder pain. Comparison: None. Findings: Three views of the shoulder demonstrate no acute fracture or dislocation. Diffuse osteopenia is present. No significant joint space loss or productive change is identified. Impression: 1. Negative for acute osseous abnormality. [id number] us Dottie Dos Santos DIRECTOR [facility] DIAGNOSTIC IMAGING ORDERABLES Final Result documented in this encounter Visit Diagnoses Diagnosis Chronic left shoulder pain Pain in joint, shoulder region Chronic right shoulder pain Pain in joint, shoulder region Chronic right shoulder pain Pain in joint, shoulder region documented in this encounter Care Teams Plaster Mechanic Relationship Specialty Start Date End Date Carlita Avendaño DO [address] [place] [address] PCP - General Family Practice 01/09/20 documented as of this encounter
--- OUTSIDE RECORDS SUMMARY | 2025-04-21 12:19 | XMS_ITS | Encounter Summary ---
Author Organization [employer] Address [address] [place] [address] Care Team Providers Care Pierogi Maker Name Role Phone Lilly Davis MD Primary Care Provider [phone] Reason for Referral * CT Scan (Routine) - Pending Review Specialty Diagnoses / Procedures Referred By Tanika t Referred To Contact Radiology Diagnoses Lung nodules Pulmonary fibrosis (CMS/HCC) Tobacco dependence Procedures CT LUNG SCREENING (FOLLOW UP DIAGNOSTIC) WO CONTRAST Eddie Worthington FNP [address] [address] Phone: tel: fax: [address] [address] Phone: tel: fax: Referral ID Status Reason Start Date Expiration Date V isits Requested Visits Authorized [id number] Pending Review 04/20/2025 05/21/2026 1 1 WARE SOLUTIONS ARCHITECT * Radiology Services (Routine) - Authorized Specialty Diagnoses / Procedures Referred By Tanika t Referred To Contact Radiology Diagnoses Age-related osteoporosis without current pathological fracture Compression fracture of body of thoracic vertebra (CMS/HCC) Procedures XR DEXA BONE DENSITY AXIAL 1 OR MORE SITES Eddie Worthington FNP [address] [address] Phone: tel: fax: [facility] [place] [address] [place] [address] Phone: tel: fax: Referral ID Status Reason Start Date Expiration Date Visits Requested Visits Authorized [id number] Authorized WYN View CTS to Schedule 5 05/21/2026 1 1 WARE SOLUTIONS ARCHITECT * Radiology Services (Routine) - Authorized Specialty Diagnoses / Procedures Referred By Tanika ellis Referred To Contact Radiology Diagnoses Liver lesion, right lobe Procedures US ABDOMEN LIMITED Eddie Worthington FNP [address] [place] [address] Phone: tel: fax: [facility] Ultrasound [place] [address] [place] [address] Phone: tel: fax: Referral ID Status Reason Start Date Expiration Date Visits Requested Visits Authorized [id number] Authorized WYN View CTS to Schedule 5 05/21/2026 1 1 WARE SOLUTIONS ARCHITECT Reason for Visit * Reason Onset Date Comments Lab Results 04/02/2025 Patient Communication Encounter Details Date Type Department Care Team (Latest Contact Info) Description 04/02/2025 Results Follow-Up [facility] Family Medicine [place] [address] [address] Eddie Worthington FNP [address] [place] [address] COMPREHENSIVE METABOLIC PANEL, CBC WITH DIFFERENTIAL, MAGNESIUM LEVEL, Additional followed-up results: 5 Social History Tobacco Use Types Packs/Day Years [...] about transportation for future doctor visits, picker and packer medication, etc.? No 2024 Housing Stability Answer [...] on file Legal Sex Female 12:52 AM SOFTWARE SOLUTIONS ARCHITECT Gender Identity Not on file Sexual Orientation Not on file documented as of this encounter Miscellaneous Notes * Telephone Encounter - Ligia Chand RN - 04/20/2025 2:20 PM SOFTWARE SOLUTIONS ARCHITECT 04/20/2025 2:20 PM Called and notified patient of results. Voiced understanding. Ligia BRIONES WARE SOLUTIONS ARCHITECT * Telephone Encounter - Ligia Chand RN - 04/20/2025 2:20 PM SOFTWARE SOLUTIONS ARCHITECT ----- Message from Eddie Worthington sent at 04/20/2025 2:17 PM SOFTWARE SOLUTIONS ARCHITECT ----- There is findings consistent with emphysema. There is scarring (fibrosis). There is a noncalcified nodule in the right lower lobe and left upper lobe needing low dose CT in 6 months. There is aortic calcifications. There is a mass in the right lobe of the liver needing follow up ultrasound. There is osteoporosis of the spine with compression fractures noted in the low middle back. I will order Dexa scan to evaluate this further ----- Message ----- From: Anjali Randle Sent: 04/20/2025 2:11 PM SOFTWARE SOLUTIONS ARCHITECT To: YOLIS Motley WARE SOLUTIONS ARCHITECT * Addendum Note - Eddie Worthington FNP - 04/20/2025 2:17 PM CSTAddended by: EDDIE WORTHINGTON on: 04/20/2025 02:17 PM Modules accepted: Orders WARE SOLUTIONS ARCHITECT * Telephone Encounter - Ligia Chand RN - 04/02/2025 1:05 PM SOFTWARE SOLUTIONS ARCHITECT 04/02/2025 1:05 PM Called and notified patient of results. Voiced understanding. Ligia BRIONES WARE SOLUTIONS ARCHITECT * Telephone Encounter - Agustin Richey - 04/02/2025 12:43 PM CST Copied from [facility] #[id number]. Topic: CPA Information Request >> Apr 02, 2025 12:41 PM Agustin Ford wrote: Caller is returning phone call from clinic. Caller Name: Lucy Dotson Patient/Caregiver Callback Number: [phone] (mobile) Clinic Left Note In Chart Is there a note from the clinic requesting the caller be transferred when they call back? 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 Yes Call Notes: Communicated information that is documented in the note. Caller wants a call back from clinic. WARE SOLUTIONS ARCHITECT * Telephone Encounter - Ligia Chand RN - 04/02/2025 8:36 AM SOFTWARE SOLUTIONS ARCHITECT 04/02/2025 8:36 AM No answer. Left voice mail/message that patient/caregiver can return our call. If patient/caregivercalls back, contact center please inform caller to expect a return call from the clinic. Ligia BRIONES WARE SOLUTIONS ARCHITECT * Telephone Encounter - Ligia Chand RN - 04/02/2025 8:36 AM SOFTWARE SOLUTIONS ARCHITECT ----- Message from Eddie Worthington sent at 04/02/2025 7:17 AM SOFTWARE SOLUTIONS ARCHITECT ----- Thyroid is in normal range. Magnesium is normal. Blood counts are good. No anemia noted. Electrolytes are in normal range. Liver function is in normal range.There is acute kidney dysfunction. Stop the Baclofen and Celebrex given to you by the ER. Avoid NSAIDs. Drink plenty of water. We will repeat CBC in 1 week. Please come back in middle of next week to repeat. ----- Message ----- From: Sohan Thomas Incoming [facility] Results Sent: 04/01/2025 4:59 AM SOFTWARE SOLUTIONS ARCHITECT To: YOLIS Motley WARE SOLUTIONS ARCHITECT documented in this encounter Plan of Treatment Upcoming Encounters Date Type Department Care Team (Late st Contact Info) Description 05/07/2025 8:20 AM SOFTWARE SOLUTIONS ARCHITECT Office Visit [facility] [address] [address] Eddie Worthington FNP [address] [address] 05/11/2025 10:00 AM SOFTWARE SOLUTIONS ARCHITECT Appointment [facility] maging Services [place] [address] [facility] [address] [place] [address] Eddie Worthington, [facility] [address] [place] [address] 05/11/2025 11:00 AM SOFTWARE SOLUTIONS ARCHITECT Appointment [facility] Ultrasound [place] [address] [facility] [address] [place] [address] Eddie Worthington, [facility] [address] [place] [address] 05/24/2025 1:20 PM SOFTWARE SOLUTIONS ARCHITECT Office Visit [facility] Family Medicine [place] [address] [place] [address] Lilly Davis MD [address] [place] [address] 07/15/2025 3:00 PM CDT Appointment [facility] Neurology [facility] [address] [place] [address] Onur Menendez MD [address] [place] [address] 08/24/2025 2:30 PM CDT Telemed [facility] Telemedicine - [place] [address] [place] [address] Muna Haile NP [address] [place] [address] Scheduled Orders Name Type Priority Associated Diagnoses Orde r Schedule CBC WITH DIFFERENTIAL Lab Routine [place] (acute kidney injury) Expected: 04/09/2025, Expires: 04/02/2026 US ABDOMEN LIMITED Imaging Routine Liver lesion, right lobe 1 Occurrences starting 04/20/2025 until 04/20/2026 XR DEXA BONE DENSITY AXIAL 1 OR MORE SITES Imaging Routine Age-related osteoporosis without current pathological fracture Compression fracture of body of thoracic vertebra (CMS/HCC) 1 Occurrences starting 04/20/2025 until 04/20/2026 CT LUNG SCREENING (FOLLOW UP DIAGNOSTIC) WO CONTRAST Imaging Routine Lung nodules Pulmonary fibrosis (CMS/HCC) Tobacco dependence 1 Occurrences starting 04/20/2025 until 04/20/2026 documented as of this encounter Visit Diagnoses Diagnosis [place] (acute kidney injury)- Primary Acute kidney failure, unspecified Liver lesion, right lobe Other specified disorders of liver Lung nodules Other nonspecific abnormal finding of lung field Pulmonary fibrosis (CMS/HCC) Postinflammatory pulmonary fibrosis Age-related osteoporosis without current pathological fracture Senile osteoporosis Compression fracture of body of thoracic vertebra (CMS/HCC) Tobacco dependence Tobacco use disorder documented in this encounter Care Teams Pierogi Maker Relationship Specialty Start Date End Date Lilly Davis MD [address] [facility] [address] [place] [phone] PCP - General Family Practice 10/02/21 documented as of this encounter
--- NOTE | 2025-04-21 12:23 | CT_ITS ---
WS: [id number] CT LUMBAR SPINE TECHNIQUE: Noncontrast CT of the lumbar spine with coronal and sagittal reformatted images. CLINICAL INFORMATION: Trauma history of osteoporosis with vertebral compression fr COMPARISON: CT and MRI 01/26/2025 DLP: 341.[address] scans at [facility] use at least one of these dose optimization techniques: automated exposure control; mA and/or kV adjustment per patient size (includes targeted exams where dose is matched to clinical indication); or iterative reconstruction. FINDINGS: Interval kyphoplasty to T12, L1, and L2. Mild retropulsion posterior superior cortex of T12 with mild/moderate central canal stenosis may be slightly progressed today Additional interval compression at T12 with visualized fracture clefts. Loss of approximately 50% vertebral body height. No other new compression fractures compared to previous. Osteopenia. Associated paravertebral edema. T11-T12: Narrowing of the RIGHT subarticular recess. Mild RIGHT foraminal narrowing. Retropulsion at T12 with mild central canal stenosis. Slight contact of the lower thoracic cord. T12-L1: Mild LEFT foraminal narrowing. L1-L2: Spinal canal and foramen are patent. Slight effacement of the ventral thecal sac. Kyphoplasty tract LEFT pedicle at L2 from recent kyphoplasty L2-L3: Mild disc bulging. Slight narrowing of the subarticular recess bilaterally. L3-L4: Mild annular bulging. Mild central canal stenosis. Mild LEFT foraminal narrowing. Narrowing of the subarticular recess bilaterally. Mild to moderate facet arthropathy. L4-L5: Mild disc bulge with mild central canal stenosis. Impingement of the LEFT subarticular recess and traversing LEFT L5 nerve root. Mild LEFT foraminal narrowing. Moderate facet arthropathy. L5-S1: Disc osteophyte complex with endplate ridging. Moderate facet arthropathy. Mild bilateral foraminal narrowing. Spinal canal is patent. Slight contact of the LEFT S1 nerve root. CT/CT lumbar spine wo con* [id number] IMPRESSION: 1. Interval kyphoplasty at T12-L1 and L2. 2. Interval additional compression today at T12 with visualized fracture cleft s and loss of approximately 50% vertebral body height. Retropulsion with mild t o moderate central canal stenosis at T11-T12 may be slightly progressed compare d to previous. Slight contact of the lower thoracic cord. Associated paraverteb ral edema 3. Mild central canal stenosis L3-L4 and L4-L5 with narrowing of the LEFT L4-5 subarticular recess. 4. Disc osteophyte complex L5-S1 slightly contacts the LEFT S1 nerve root.
--- NOTE | 2025-04-21 12:23 | W.ED.BACK ---
HPI - Back Pain/Injury General: Chief Complaint: Back Pain/Injury Stated Complaint: fall Time Seen by Provider: 04/21/25 12:23 History of Present Illness: 69-year-old female presents emergency room states she had a kyphoplasty done after vertebral compression fracture about 8 weeks ago. She has had worsening pain she fell again and has increased right sided lumbar pain and back pain no weakness in her legs no urinary retention or fecal incontinence. She did not strike her head or hurt her neck when she fell. Associated symptoms: Deny abdominal pain, chills, dysuria, fever(s) or urinary urgency Related Data Home Medications ?Medication ?Instructions ?Recorded ?Confirmed levothyroxine 88 mcg tablet 88 mcg PO DAILY 02/16/20 04/21/25 (Synthroid) pregabalin 100 mg capsule (Lyrica) 100 mg PO Q12H 08/04/20 04/21/25 memantine 10 mg tablet 10 mg PO DAILY 05/10/21 04/21/25 simvastatin 40 mg tablet 40 mg PO DAILY 11/18/24 04/21/25 lisinopril 10 mg tablet 10 mg PO BID 02/04/25 04/21/25 albuterol sulfate 0.63 mg/3 mL 0.63 mg inhalation Q8H PRN 04/21/25 04/21/25 solution for nebulization Shortness Of Breath Or Wheezing albuterol sulfate 90 mcg/actuation 2 puff inhalation Q4H PRN 04/21/25 04/21/25 aerosol inhaler Shortness Of Breath Or Wheezing ascorbic acid (vitamin C) 1,000 mg 1,000 mg PO BID 04/21/25 04/21/25 tablet (Vitamin C) bupropion HCl 200 mg tablet,12 hr 200 mg PO DAILY 04/21/25 04/21/25 sustained-release calcium 600 mg (as 1 tab PO BID 04/21/25 04/21/25 carbonate)-vitamin D3 5 mcg (200 unit) tablet celecoxib 200 mg capsule 200 mg PO BID 04/21/25 04/21/25 clopidogrel 75 mg tablet 75 mg PO DAILY 04/21/25 04/21/25 duloxetine 60 mg capsule,delayed 60 mg PO BID 04/21/25 04/21/25 release ibuprofen 200 mg tablet (Advil) 1,200 mg PO Q6H PRN Pain 04/21/25 04/21/25 metoprolol succinate 25 mg 12.5 mg PO DAILY 04/21/25 04/21/25 tablet,extended release 24 hr tramadol 50 mg tablet 50 mg PO Q6H PRN Pain 04/21/25 04/21/25 trazodone 50 mg tablet 50 mg PO BEDTIME 04/21/25 04/21/25 Previous Rx's ?Medication ?Instructions ?Recorded Aquatic therapy #1 ea 03/02/21 aspirin 81 mg tablet,delayed 81 mg PO DAILY #90 tabs 05/10/21 release Held on 02/05/25. Instructions: Resume on 02/07/25. cam boot to left #1 ea 01/21/25 hydrocodone 5 mg-acetaminophen 325 1 tab PO Q6H PRN pain #12 tabs 04/21/25 mg tablet methylprednisolone 4 mg tablets in See Rx Instructions PO .COMPLEX 04/21/25 a dose pack (Medrol (Jose)) #21 ea Allergies Allergy/AdvReac Type Severity Reaction Status Date / Time No Known Allergies Allergy Verified 04/21/25 12:21 Review of Systems Const: Denies: fever(s) or chills Card: Denies: chest pain Resp: Denies: dyspnea GI: Denies: abdominal pain : Denies: dysuria, urinary frequency or urinary urgency Musc: Reports: back pain; Denies: neck pain Skin/Breast: Denies: rash PFSH ED PFSH: Medical History Tobacco abuse COPD (chronic obstructive pulmonary disease) History of acute inferior wall [place] Atherosclerosis of coronary artery Surgical History H/O right coronary artery stent placement Social History Smoking and tobacco/nicotine status: former use of tobacco/nicotine Quit status (tobacco/nicotine): considering quitting Alcohol intake: never Substance/Drug Use: never Physical Exam Const: COMMON NORMALS: no acute distress GENERAL APPEARANCE: cooperative and comfortable ORIENTATION/CONSCIOUSNESS: Yes awake, Yes oriented to person, Yes oriented to place and Yes oriented to time HENMT: COMMON NORMALS: normocephalic, atraumatic and hearing grossly normal bilaterally HEAD & SCALP: normocephalic and atraumatic Resp: COMMON NORMALS: normal respiratory effort, No retractions, No use of accessory muscles and clear to auscultation bilaterally AUSCULTATION: clear to auscultation bilaterally Cardio: COMMON NORMALS: regular rate, regular rhythm and No murmurs present (Cardio) RATE: regular rate RHYTHM: regular rhythm GI: COMMON NORMALS: Soft to palpation and No hepatosplenomegaly present AUSCULTATION: Yes normoactive bowel sounds PALPATION: Yes Soft to palpation, No Tenderness to palpation present (GI), No Guarding due to palpation present (GI) and Yes No hepatosplenomegaly present Extremity: COMMON NORMALS: normal to inspection, capillary refill normal, no clubbing, cyanosis or edema, no calf tenderness and no pedal edema Neuro: SENSORIUM/ORIENTATION: Yes oriented to person, Yes oriented to place and Yes oriented to time OTHER: Lower extremities neurologically intact straight leg raising elicits back pain but no radicular pain Skin: COMMON NORMALS: no rashes or lesions noted GENERAL SKIN EXAM: no rashes or lesions noted Course Vital Signs: Vital signs: Vital Signs Temperature 97.1 F L 04/21/25 15:58 Pulse Rate 70 04/21/25 15:58 Respiratory Rate 16 04/21/25 15:58 Blood Pressure 108/73 04/21/25 15:58 Pulse Oximetry 96 04/21/25 15:58 Oxygen Delivery Me thod Room Air 04/21/25 14:00 MDM - Back Pain/Injury Medical Decision Making CT done shows further compression of the T12 with some retropulsion it is causing some moderate central canal stenosis C1 point at which it appears to abut the cord. I discussed with Dr. Aguero he reviewed the film he does not feel it is emergent at this point. Patient did have improvement with medications given she would prefer to go home we will discharge home with pain medications and steroid taper and follow-up with orthopedics next week. Return to the emergency room if she has any further problems has worsening pain and inability to walk or any other loss of function any urinary retention or fecal incontinence. Labs Radiology Impressions Lumbar Spine CT 04/21/25 12:23 IMPRESSION: 1. Interval kyphoplasty at T12-L1 and L2. 2. Interval additional compression today at T12 with visualized fracture clefts and loss of approximately 50% vertebral body height. Retropulsion with mild to moderate central canal stenosis at T11-T12 may be slightly progressed compared to previous. Slight contact of the lower thoracic cord. Associated paravertebral edema 3. Mild central canal stenosis L3-L4 and L4-L5 with narrowing of the LEFT L4-5 subarticular recess. 4. Disc osteophyte complex L5-S1 slightly contacts the LEFT S1 nerve root. All radiology interpretation(s) finalized by discharge Discharge Plan Discharge Patient Disposition: Home Clinical Impression: Closed compression fracture of thoracic vertebra Condition: Stable Prescriptions: New hydrocodone-acetaminophen 5-325 mg tablet 1 tab PO Q6H PRN (Reason: pain) Qty: 12 0RF methylprednisolone [Medrol (Jose)] 4 mg tablets,dose pack See Rx Instructions .ROUTE .COMPLEX Qty: 21 0RF Rx Instructions: orally per package directions No Action pregabalin [Lyrica] 100 mg capsule 100 mg PO Q12H (DME) Aquatic therapy See Rx Instructions .Route .MEDSUPPLY Qty: 1 0RF Rx Instructions: As directed. levothyroxine [Synthroid] 88 mcg tablet 88 mcg PO DAILY (DME) cam boot to left See Rx Instructions .Route .MEDSUPPLY Qty: 1 0RF Rx Instructions: As directed memantine 10 mg tablet 10 mg PO DAILY aspirin 81 mg Tablet,Delayed Release (Dr/Ec) 81 mg PO DAILY Qty: 90 4RF simvastatin 40 mg tablet 40 mg PO DAILY Rx Instructions: TAKE 1 TABLET BY MOUTH EVERY EVENING celecoxib 200 mg capsule 200 mg PO BID Rx Instructions: Do not take with Ibprofen trazodone 50 mg tablet 50 mg PO BEDTIME clopidogrel 75 mg tablet 75 mg PO DAILY tramadol 50 mg tablet 50 mg PO Q6H PRN (Reason: Pain) metoprolol succinate 25 mg tablet extended release 24 hr 12.5 mg PO DAILY bupropion HCl 200 mg tablet sustained-release 12 hr 200 mg PO DAILY duloxetine 60 mg capsule,delayed release(DR/EC) 60 mg PO BID albuterol sulfate 0.63 mg/3 mL solution for nebulization 0.63 mg inhalation Q8H PRN (Reason: Shortness Of Breath Or Wheezing) albuterol sulfate 90 mcg/actuation HFA aerosol inhaler 2 puff INHALATION Q4H PRN (Reason: Shortness Of Breath Or Wheezing) ibuprofen [Advil] 200 mg Tablet 1,200 mg PO Q6H PRN (Reason: Pain) ascorbic acid (vitamin C) [Vitamin C] 1,000 mg Tablet 1,000 mg PO BID calcium carbonate-vitamin D3 [Calcium + D] 600 mg-5 mcg (200 unit) Tablet 1 tab PO BID lisinopril 10 mg Tablet 10 mg PO BID Discharge Orders: Discharge ED (Routine); Ordered 04/21/25 Ordered By: Agustin Junior Referrals: Cheyanne Davis MD [Primary Care Provider, Family Practice] Discharge Diet: Usual diet Discharge Activity: Limit activity as instructed Patient Instructions: Opioid Safety, Pain Management, Patient Portal & Robert Instructions Activity Restrictions/Additional Instructions: Thank you for choosing [facility] for your healthcare needs today. It is very important that you follow up as instructed or that you return to the Emergency Department should you have concerns or if your condition changes or worsens in any way. Emergency department visits are focused on emergent conditions, in some cases you may require further evaluation on an outpatient basis. You are seen emergency room for continued back pain CT shows some progression of your stable compression fracture we reviewed with Dr. Aguero will discharge home with steroids and increased pain medications. Dr. Aguero's office will contact you for follow-up with him. (Please note that included in your discharge packet is information concerning opioid safety and pain management. This information is given to all patients were discharged from the ER regardless of their discharge diagnosis or the medicines they usually take or are prescribed.) Print Language: [place] Coding Level of Care Code ED Talent Sourcing Specialist for Jake Russell
[2025-04-21 13:00] VITALS: RESP 18; O2SAT 97
[2025-04-21] MEDS: morphine 4 mg/mL SDV 1 mL 2 MG IVP (13:00)
[2025-04-21] MEDS: ondansetron 2 mg/ML SDV 2 mL 4 MG IVP (13:01)
[2025-04-21 13:12] VITALS: BP 102/71; PULSE 88; RESP 16; O2SAT 97
[2025-04-21 14:00] VITALS: BP 109/70; PULSE 67; RESP 16; O2SAT 99
[2025-04-21 15:58] VITALS: BP 108/73; PULSE 70; RESP 16; TEMP 36.2; O2SAT 96
== END 2025-04-21 16:12 | disposition home or self-care (01) ==
PROVIDERS: Emergency Provider Family Medicine; PCP Family Medicine
DX: S22.080A Wedge compression fracture of T11-T12 vertebra, initial encounter for closed fracture (principal); W19.XXXA Unspecified fall, initial encounter; J44.9 Chronic obstructive pulmonary disease, unspecified; I25.10 Atherosclerotic heart disease of native coronary artery without angina pectoris; Z87.891 Personal history of nicotine dependence; Z79.82 Long term (current) use of aspirin; Z79.02 Long term (current) use of antithrombotics/antiplatelets
CPT/HCPCS: 72131; 96374; 96375; 99285; J1885; J2270; J2405